=== PATIENT | male | born 1965 | race Caucasian/White ===

== ENCOUNTER 2018-06-27 01:17 | Emergency (ER) | payer BC ==
[2018-06-27] MEDS ORDERED: Morphine 4 MG/ML VIAL ONE ×3 (01:48→05:01)
[2018-06-27] MEDS ORDERED: Ondansetron HCl/PF 4 MG/2 ML Vial ONE (01:48)
[2018-06-27 01:53] LABS: #Eosinphils 0.2 thou/uL (0.0-0.7); #Monocytes 0.5 thou/uL (0.11-0.59); #Neutrophils 2.5 thou/uL (1.40-6.50); %Basophils 0.8 % (0.0-1.0); %Eosinophils 3.4 % (0.0-10.0); %Lymphocytes 38.6 % (21.0-51.0); %Monocytes 8.7 % (0.0-10.0); %Neutrophils 48.5 % (42.0-75.0); Hemoglobin 15.3 g/dL (14.0-18.0); Mean Corpuscular Hemoglobin 32.1 pg (27.0-31.0); Mean Corpuscular Volume 91.6 fL (78.0-98.0); Mean Platelet Volume 7.2 fL (7.4-10.4); Platelet Count 208 thou/uL (130-400); RBC Distribution Width 12.2 % (11.5-14.5); Red Blood Cell (RBC) Count 4.78 mill/uL (4.70-6.10); White Blood Cell (WBC) Count 5.2 thou/uL (4.8-10.8)
[2018-06-27 01:54] LABS: Bilirubin Negative (Negative); Blood, Urine Small (Negative); Clarity CLEAR (Clear); Glucose, Urine (Dipstick) Negative (Negative); Leukocyte Negative (Negative); Nitrite Negative (Negative); Protein, Urine (Dipstick) 30 mg/dL (Neg-Trace); Specific Gravity, Urine 1.015 (1.002-1.036); Urobilinogen 0.2 mg/dL (0.2-1.0); pH, Urine 5.5 (5.0-9.0)
[2018-06-27 01:56] LABS: Bacteria/HPF None Seen HPF (None Seen); Hyaline Casts/LPF 0-3 HYALINE CAST LPF (0-3 Hyaline); Pathc Cast-AUWi Flag 0.14 (0-2.49); Squamous Epithelial None Seen HPF (0-3); WBC/HPF 0-3 HPF (0-3)
[2018-06-27 02:13] LABS: ALT (SGPT) 50 U/L (8-55); AST (SGOT) 30 U/L (5-34); Albumin 4.5 g/dL (3.5-5.0); Alkaline Phosphatase 128 U/L (40-150); Anion Gap 15 mmol/L (10-20); BUN (Urea Nitrogen) 16 mg/dL (8.4-25.7); Bilirubin, Total 0.5 mg/dL (0.2-1.2); Calc. Creatinine Clearance 0 mL/min (70-130); Calcium 9.9 mg/dL (7.8-10.44); Carbon Dioxide 26 mmol/L (22-29); Chloride 102 mmol/L (98-107); Estimated GFR-MDRD 63; Globulin 3.4 g/dL (2.4-3.5); Glucose 131 mg/dL (70-105); Lipase 44 U/L (8-78); Potassium 4.3 mmol/L (3.5-5.1); Protein, Total 7.9 g/dL (6.0-8.3); Sodium 139 mmol/L (136-145)
[2018-06-27] MEDS ORDERED: Ketorolac Tromethamine 30 MG/ML VIAL ONE (05:42)
--- NOTE | 2018-06-27 08:37 | CT ---
PRELIMINARY REPORT/[facility]/EMERGENTY AFTER-HOURS PROCEDURE CT Abdomen and Pelvis With Intravenous Contrast EXAM DATE/TIME: 06/27/2018 3:38 AM CLINICAL HISTORY: 53 years old, male; Pain; Abdominal pain; Generalized; Patient HX: Llq pain radiates to l flank TECHNIQUE: Axial computed tomography images of the abdomen and pelvis with intravenous contrast. Coronal reformatted images were created and reviewed. COMPARISON: No relevant prior studies available. FINDINGS: Lower thorax: No acute findings. ABDOMEN: Liver: Hepatic steatosis. Gallbladder and bile ducts: Normal. No calcified stones. No ductal dilation. Pancreas: Normal. No ductal dilation. Spleen: Normal. No splenomegaly. Adrenals: Normal. No mass. Kidneys and ureters: 3 mm obstructing stone in the distal left ureter causing mild obstructive uropat hy. Stomach and bowel: Normal. No obstruction. No mucosal thickening. Appendix: Appendix not visualized. PELVIS: Bladder: Unremarkable as visualized. Reproductive: Prostatomegaly. ABDOMEN and PELVIS: Intraperitoneal space: Normal. No free air. No significant fluid collection. Bones/joints: No acute fracture. No dislocation. Soft tissues: Prior anterior abdominal wall hernia repair. Vasculature: Normal. No abdominal aortic aneurysm. Lymph nodes: Normal. No enlarged lymph nodes. IMPRESSION: 3 mm obstructing stone in the distal left ureter causing mild obstructive uropathy. Thank you for allowing us to participate in the care of your patient. Dictated and Authenticated by: Ramon Birmingham MD 06/27/2018 4:01 AM Central Time ([place] & [place]) FINAL REPORT ABDOMEN CT WITH CONTRAST PELVIC CT WITH CONTRAST: HISTORY: Left lower quadrant pain. Left flank pain. COMPARISON: 07/31/15. FINDINGS: This report is in agreement with the preliminary report by [facility]. There is left-sided obstructive urop athy secondary to a distal left ureteral calculus. Calculus measures approximately 3 mm. The overal l degree of obstructive uropathy is mild. POS: [facility]
[2018-06-27] MEDS ORDERED: Iopamidol 370 76% 50 ML VIAL FS ONE (13:52)
[2018-06-27] MEDS ORDERED: ISOVUE-370 76%-LOCM 1 ML ONE (13:52)
== END 2018-06-27 05:55 | disposition home or self-care (01) ==
LOC: ERS 01:17
DX: N20.1 Calculus of ureter (principal); E11.9 Type 2 diabetes mellitus without complications; K58.9 Irritable bowel syndrome, unspecified; F32.9 Major depressive disorder, single episode, unspecified; J45.909 Unspecified asthma, uncomplicated; Z79.899 Other long term (current) drug therapy; Z79.84 Long term (current) use of oral hypoglycemic drugs; Z79.891 Long term (current) use of opiate analgesic
CPT/HCPCS: 74177; 80053; 81003; 81015; 83690; 85025; 94760; 96374; 96375; 96376; J1885; J2270; J2405

== ENCOUNTER 2018-08-21 14:51 | Outpatient (CLI) | payer BC ==
--- NOTE | 2018-08-21 16:14 | RAD ---
PA AND LATERAL VIEWS CHEST: 08/21/18 HISTORY: Asthmatic bronchitis with acute exacerbation. FINDINGS: The heart size is borderline. The lungs are expanded without focal areas of consolidation, pneumothor aces, or pleural effusions. There are postop changes of metallic hardware in the lower cervical spine . IMPRESSION: No radiographic evidence of acute cardiopulmonary process. POS: [facility]
== END 2018-08-21 14:52 | disposition home or self-care (01) ==
LOC: BICRAD 14:51
PROVIDERS: ATTEND Family Medicine
DX: J45.901 Unspecified asthma with (acute) exacerbation (principal)
CPT/HCPCS: 71046

== ENCOUNTER 2019-04-18 07:35 | Outpatient (CLI) | payer BC ==
--- NOTE | 2019-04-18 09:21 | MRI ---
MRI CERVICAL SPINE WITHOUT CONTRAST: HISTORY: Cervical fusion. Cervical spinal stenosis. Headache. Arm pain and shoulder pain, involving the rig ht side. COMPARISON: None. CORRELATION: Cervical spine radiograph series from 04/16/2019. FINDINGS: Metallic susceptibility artifact secondary to cervical fusion changes at C5, C6, and C7. The visuali zed cervical vertebrae have appropriate signal intensity. Straightening of normal cervical lordosis may be due to position. No significant STIR hyperintensity to suggest vertebral body edema or ligame ntous injuries. The visualized brain parenchyma, cervicomedullary junction, cervical cord, and upper thoracic cord burgos ve normal size and signal intensity. C2-C3: No significant central canal stenosis. The foramina are patent. C3-C4: No significant central canal stenosis. Mild right foraminal narrowing due to uncovertebral h ypertrophy. Left neural foramen is patent. C4-C5: Broad-based disk osteophyte complex causes mass effect upon the ventral subarachnoid space. Mild deformity of the left hemicord without cord hyperintensity. Mild central canal stenosis. Mild right foraminal narrowing due to uncovertebral hypertrophy. Left foramen is patent. C5-C6: There is a central/left paracentral osteophyte ridge. Mild central canal stenosis. The fora felipe are patent. C6-C7: There is a central/left paracentral osteophyte protrusion. No significant mass effect upon t he cervical cord. Bilaterally, the foramina are patent. C7-T1: No significant central canal stenosis. The neural foramina are patent. IMPRESSION: 1. Cervical fusion changes, as described above. There are osteophytes at the C5-C6 and C6-C7 levels without significant central canal stenosis. 2. Mass effect upon the left hemicord secondary to a disk osteophyte complex at C4-C5. No cord sign al abnormality. 3. Varying degrees of neural foraminal stenosis, as detailed above. POS: [facility]
== END 2019-04-18 07:36 | disposition home or self-care (01) ==
LOC: TBSIIMAG 07:35
PROVIDERS: ATTEND Anesthesiology Pain Medicine
DX: M48.02 Spinal stenosis, cervical region (principal); M25.78 Osteophyte, vertebrae; Z98.1 Arthrodesis status
CPT/HCPCS: 72052; 72141

== ENCOUNTER 2019-04-21 12:44 | Emergency (ER) | payer BC ==
[2019-04-21 13:16] LABS: #Eosinphils 0.1 thou/uL (0.0-0.7); #Lymphocytes 1.5 thou/uL (1.20-3.40); #Neutrophils 6.7 thou/uL (1.40-6.50); %Basophils 0.4 % (0.0-1.0); %Eosinophils 0.8 % (0.0-10.0); %Lymphocytes 15.8 % (21.0-51.0); %Monocytes 10.3 % (0.0-10.0); %Neutrophils 72.7 % (42.0-75.0); Hemoglobin 14.3 g/dL (14.0-18.0); Mean Corpuscular HGB CONC 34.8 g/dL (32.0-36.0); Mean Corpuscular Hemoglobin 32.1 pg (27.0-31.0); Mean Corpuscular Volume 92.3 fL (78.0-98.0); Platelet Count 205 thou/uL (130-400); RBC Distribution Width 11.8 % (11.5-14.5); Red Blood Cell (RBC) Count 4.46 mill/uL (4.70-6.10); White Blood Cell (WBC) Count 9.2 thou/uL (4.8-10.8)
[2019-04-21] MEDS ORDERED: Lidocaine Viscous Sol 2% 15 ml UD Cup ONE (13:23)
[2019-04-21] MEDS ORDERED: Ketorolac Tromethamine 60 MG/2 ML VIAL ONE (13:38)
[2019-04-21] MEDS ORDERED: Lidocaine 2% Jelly 5 ML TUBE TOP SCH (13:45)
[2019-04-21 13:46] LABS: ALT (SGPT) 52 U/L (8-55); AST (SGOT) 20 U/L (5-34); Albumin 4.4 g/dL (3.5-5.0); Alkaline Phosphatase 91 U/L (40-150); Anion Gap 14 mmol/L (10-20); BUN (Urea Nitrogen) 15 mg/dL (8.4-25.7); Bilirubin, Total 0.8 mg/dL (0.2-1.2); Calc. Creatinine Clearance 0 mL/min (70-130); Calcium 9.7 mg/dL (7.8-10.44); Carbon Dioxide 26 mmol/L (22-29); Chloride 98 mmol/L (98-107); Estimated GFR-MDRD 60; Globulin 3.1 g/dL (2.4-3.5); Glucose 213 mg/dL (70-105); Potassium 4.1 mmol/L (3.5-5.1); Protein, Total 7.5 g/dL (6.0-8.3); Sodium 134 mmol/L (136-145)
[2019-04-21 14:46] LABS: Bilirubin Negative (Negative); Blood, Urine Trace (Negative); Clarity CLEAR (Clear); Glucose, Urine (Dipstick) >=1000 mg/dL (Negative); Leukocyte Negative (Negative); Nitrite Negative (Negative); Protein, Urine (Dipstick) 100 mg/dL (Neg-Trace); Urobilinogen 0.2 mg/dL (0.2-1.0)
[2019-04-21 14:48] LABS: Bacteria/HPF None Seen HPF (None Seen); Hyaline Casts/LPF 0-3 HYALINE CAST LPF (0-3 Hyaline); Squamous Epithelial None Seen HPF (0-3); WBC/HPF 0-3 HPF (0-3)
== END 2019-04-21 16:20 | disposition home or self-care (01) ==
LOC: ERS 12:44
DX: R33.9 Retention of urine, unspecified (principal); E11.9 Type 2 diabetes mellitus without complications; K58.9 Irritable bowel syndrome, unspecified; F32.9 Major depressive disorder, single episode, unspecified; Z79.891 Long term (current) use of opiate analgesic; Z79.899 Other long term (current) drug therapy
CPT/HCPCS: 36415; 80053; 81003; 81015; 85025; 87086; 96372; J1885

== ENCOUNTER 2019-09-17 09:07 | Day surgery (SDC) | payer BC ==
[2019-09-14 09:49] VITALS: BMI 49.4
[2019-09-17] MEDS ORDERED: PROPOFOL 200 MG/20 ML VIAL ONE (09:36)
[2019-09-17] MEDS ORDERED: Ondansetron HCl/PF 4 MG/2 ML Vial IVP PRN (10:16)
[2019-09-17] MEDS ORDERED: Promethazine HCl 25 MG/ML VIAL IM PRN (10:16)
[2019-09-17] MEDS ORDERED: Promethazine HCl 25 MG/ML VIAL SLOW IVP PRN (10:16)
--- NOTE | 2019-09-17 11:29 | OP ---
DATE OF PROCEDURE: 09/17/2019 PHYSICIAN INTENSIVIST SURGEON: None. PROCEDURES PERFORMED: Colonoscopy with biopsies and snare polypectomy. INDICATIONS: 1. Chronic diarrhea. 2. Rectal bleeding. 3. History of colon polyps. MEDICATIONS: See Anesthesia record. FINDINGS: After discussion of the risks, benefits, and alternatives of the procedure, informed consent was obtained and witnessed. Pre-endoscopic cardiopulmonary examination was satisfactory. Time-out was performed before sedation was achieved. Sedation was achieved with Anesthesia assistance in the endoscopy unit. Digital rectal exam was performed, which was unremarkable. A Pentax adult colonoscope was inserted into the anus and passed forward to the cecum in the usual fashion. The cecal base was identified by the appendiceal orifice as well as the ileocecal valve. The terminal ileum was intubated and the ileal mucosa appeared normal. The colonoscope was slowly withdrawn in a gradual and circumferential manner with careful examination of the entire colonic mucosa. The quality of the prep was good. The colonic mucosa appeared normal throughout. Random biopsies were obtained from the colonic mucosa in the right and left colon, to rule out microscopic colitis. There were two tiny sessile polyps in the descending colon and one tiny sessile polyp in the sigmoid colon, and all three of these were completely removed with cold snare and retrieved for pathology. Retroflexion in the rectum demonstrated small internal hemorrhoids. The colonoscope was completely withdrawn and the patient allowed to recover. The patient tolerated the procedure well. There were no immediate postprocedure complications. IMPRESSION: 1. Normal colonic mucosa throughout, with random colon biopsies obtained to rule out microscopic colitis. 2. Normal terminal ileum. 3. Three tiny polyps in the left colon, all completely removed with cold snare and retrieved for pathology. 4. Internal hemorrhoids. RECOMMENDATIONS: 1. Follow up pathology on the random colon biopsies and colon polyps. 2. Repeat colonoscopy for surveillance based on pathology results. 3. Follow up results of stool studies. 4. If stool studies and random colon biopsies are all unrevealing, we will plan to treat with a 2-week course of rifaximin. Job ID: [id number]
== END 2019-09-17 11:50 | disposition home or self-care (01) ==
LOC: SDC 09:07
PROVIDERS: ATTEND Internal Medicine
DX: K63.5 Polyp of colon (principal); K64.8 Other hemorrhoids; K58.0 Irritable bowel syndrome with diarrhea; E11.9 Type 2 diabetes mellitus without complications; G47.33 Obstructive sleep apnea (adult) (pediatric); N39.3 Stress incontinence (female) (male); E66.9 Obesity, unspecified; Z68.42 Body mass index [BMI] 45.0-49.9, adult; Z86.010 Personal history of colon polyps; Z80.0 Family history of malignant neoplasm of digestive organs; Z79.84 Long term (current) use of oral hypoglycemic drugs; Z79.899 Other long term (current) drug therapy; Z99.89 Dependence on other enabling machines and devices
CPT/HCPCS: 88305; J2704

== ENCOUNTER 2020-05-09 10:11 | Outpatient (CLI) | payer BC ==
[2020-05-09] MEDS ORDERED: Iopamidol-370 76% 500 ML 1 ML ONE (12:28)
--- NOTE | 2020-05-09 13:49 | CT ---
CT CHEST WITHOUT IV CONTRAST CTA CHEST WITH IV CONTRAST AND 3D POSTPROCESSIN05/09/20 HISTORY: Thoracic aortic ectasia. FINDINGS: The thoracic aortic measurements on the coronal oblique images are as follows: At aortic annulus: 2.5 cm Aortic sinus of Valsalva: 3.5 cm Sinotubular junction: 2.5 cm Mid ascending aorta: 3.7 cm High ascending aorta: 3.3 cm Descending thoracic aorta: 2.4 cm On the axial images, the ascending thoracic aorta measures 4 cm in AP dimension and descending thorac ic aorta measures 2.5 cm in AP dimension. No pleural or pericardial effusions are seen. No pneumothoraces, focal areas of consolidation, lung n odules or masses are identified. There are degenerative changes in the spine. Upper abdominal tomograms demonstrate fatty infiltration of the liver. IMPRESSION: Ectatic thoracic aorta without evidence of aneurysmal formation. Fatty liver. POS: [facility]
== END 2020-05-09 10:12 | disposition home or self-care (01) ==
LOC: BICCT 10:11
PROVIDERS: ATTEND Internal Medicine Cardiovascular Disease
DX: I77.810 Thoracic aortic ectasia (principal); K76.0 Fatty (change of) liver, not elsewhere classified
CPT/HCPCS: 71275; Q9967

== ENCOUNTER 2020-12-18 09:54 | Outpatient (CLI) | payer BC ==
[2020-12-18 18:46] LABS: Hemoglobin 16.2 g/dL (13.5-17.5); Mean Corpuscular HGB CONC 33.9 g/dL (32.0-36.0); Mean Corpuscular Volume 88.5 fl (81.2-95.1); Mean Platelet Volume 10.3 fl (7.4-10.4); Platelet Count 226 10x3/uL (150-450); White Blood Cell (WBC) Count 6.5 10x3/uL (3.5-10.5)
[2020-12-18 18:58] LABS: Anion Gap 17 mmol/L (10-20); BUN (Urea Nitrogen) 14 mg/dL (8.4-25.7); Calc. Creatinine Clearance 0 mL/min (70-130); Calcium 9.8 mg/dL (7.8-10.44); Carbon Dioxide 27 mmol/L (22-29); Chloride 101 mmol/L (98-107); Glucose 116 mg/dL (70-105); Potassium 3.9 mmol/L (3.5-5.1); Sodium 141 mmol/L (136-145)
[2020-12-18 19:00] LABS: PTT 29.5 sec (22.0-33.0); Prothrombin Time 10.8 sec (9.5-12.1)
[2020-12-19 01:58] LABS: SARS-CoV-2 PCR by NAA Not Detected (NotDetected)
--- NOTE | 2020-12-19 20:34 | EKG ---
Test Reason : Blood Pressure : / mmHG Vent. Rate : 086 BPM Atrial Rate : 086 BPM P-R Int : 184 ms QRS Dur : 108 ms QT Int : 364 ms P-R-T Axes : 042 -34 037 degrees QTc Int : 435 ms Normal sinus rhythm Left axis deviation Abnormal ECG No previous ECGs available Confirmed by Prachi HOLBROOK ([id number]) on 12/19/2020 8:34:41 PM Referred By: JOSE Confirmed By:Prachi HOLBROOK
== END 2020-12-18 09:55 | disposition home or self-care (01) ==
LOC: LABBT 09:54
PROVIDERS: ATTEND Urology
DX: Z01.818 Encounter for other preprocedural examination (principal); Z01.812 Encounter for preprocedural laboratory examination; R33.9 Retention of urine, unspecified; N32.81 Overactive bladder; N40.1 Benign prostatic hyperplasia with lower urinary tract symptoms; Z20.822 Contact with and (suspected) exposure to COVID-19; E11.9 Type 2 diabetes mellitus without complications; Z79.899 Other long term (current) drug therapy
CPT/HCPCS: 36415; 80053; 82043; 83036; 85025; 85610; 85730; 87635; 93005; 93010; U0003; U0005

== ENCOUNTER 2020-12-23 08:02 | Observation (INO) | payer BC ==
[2020-12-22 11:07] VITALS: BMI 45.2
[2020-12-23] MEDS ORDERED: Levofloxacin 500 mg/D5W 100 ml Premix Bag ONE (08:52)
[2020-12-23] MEDS ORDERED: Ondansetron PF 4 MG/2 ML Vial ONE (09:55)
[2020-12-23] MEDS ORDERED: Lidocaine 1% PF 5 ML VIAL ONE (09:55)
[2020-12-23] MEDS ORDERED: PROPOFOL 200 MG/20 ML VIAL ONE (09:55)
[2020-12-23] MEDS ORDERED: Dexamethasone 20 MG/5 ML VIAL ONE (09:55)
[2020-12-23] MEDS ORDERED: Fentanyl 100 MCG/2 ML VIAL ONE ×3 (11:26→15:04)
[2020-12-23] MEDS ORDERED: Promethazine HCl 25 MG/ML VIAL IM PRN (12:55)
[2020-12-23] MEDS ORDERED: Promethazine HCl 25 MG/ML VIAL SLOW IVP PRN (12:55)
[2020-12-23] MEDS ORDERED: Ondansetron HCl/PF 4 MG/2 ML Vial IVP PRN (12:55)
--- NOTE | 2020-12-23 13:56 | OP ---
DATE OF PROCEDURE: 12/23/2020 PREOPERATIVE DIAGNOSIS: Enlarged prostate with lower urinary tract symptoms. POSTOPERATIVE DIAGNOSIS: Enlarged prostate with lower urinary tract symptoms. PROCEDURES PERFORMED: Transurethral resection of prostate utilizing PlasmaButton. ANESTHESIA: General. COMPLICATIONS: None. ESTIMATED BLOOD LOSS: Minimal. SPECIMEN: None. DESCRIPTION OF PROCEDURE: After informed consent, the patient was taken to the operating room, transferred to the table under his own power. Anesthesia was established. A time-out was performed, showing the correct patient, site, and procedure. Preoperative antibiotics were administered. He was prepped and draped in the lithotomy position. I began by inserting the resectoscope through the urethra noting normal course and caliber of the urethra down to the prostate noting coapting lateral lobes and high bladder neck. None of the UroLift clips were visible. The bladder was systematically examined noting no mucosal abnormalities. Both ureters normal in appearance, effluxing clear urine. I began by using the PlasmaButton to take down the bladder neck and continued resection in the midline back to the verumontanum. The case was somewhat difficult due to the patient's abdominal girth causing pressure on the bladder, which would reduce flow with each breath. I then resected his left lobe from 1 o'clock down to midline from the bladder neck back to the verumontanum. I was able to remove the UroLift clips on this side, which were all irrigated from the bladder. I then repeated a similar process on the right side from 11 o'clock down to midline. Finally, anterior obstructing tissue was removed. By the end of the case, he had an excellent channel for the prostate. Hemostasis was achieved. The scope was then withdrawn after inspecting the bladder and noting no further clips and no injury to the ureters. A 22-[place] three-way catheter was placed with 30 mL instilled in the balloon. This was connected to bag drainage and CBI. He was then awoken from anesthesia, transferred back to his hospital bed, taken to PACU in stable condition, where he will be admitted overnight. Job ID: [id number]
[2020-12-23] MEDS ORDERED: Cyclobenzaprine 10 MG TAB PO PRN (15:22)
[2020-12-23] MEDS ORDERED: Oxybutynin 5 MG TAB ONE (15:32)
[2020-12-23] MEDS ORDERED: Zolpidem Tartrate 5 MG TAB PO PRN (17:59)
[2020-12-23] MEDS ORDERED: diphenhydrAMINE 50 MG/ML VIAL IVP PRN (17:59)
[2020-12-23] MEDS ORDERED: Ondansetron PF 4 MG/2 ML Vial IVP PRN (17:59)
[2020-12-23] MEDS ORDERED: hydrALAZINE 20 MG/ML VIAL SLOW IVP PRN (17:59)
[2020-12-23] MEDS ORDERED: HYDROcodone/Acetaminophen 5/325 mg Tablet PO PRN (17:59)
[2020-12-23] MEDS: Sodium Chloride 0.9% 1,000 ML IV SCH (20:33)
[2020-12-23] MEDS: Famotidine/PF 20 mg/2ml Vial SLOW IVP SCH (20:36)
[2020-12-23] MEDS ORDERED: Atorvastatin Calcium 10 MG TAB PO SCH (21:00)
[2020-12-23] MEDS ORDERED: Montelukast Sodium 10 mg Tablet PO SCH (21:00)
[2020-12-23] MEDS ORDERED: Prazosin HCl 1 MG CAP PO SCH (21:00)
[2020-12-23] MEDS ORDERED: risperiDONE 3 MG TAB PO SCH (21:00)
[2020-12-23] MEDS ORDERED: Docusate 100 MG CAP PO SCH (21:00)
[2020-12-23] MEDS ORDERED: PATIENT'S HOME MEDICATION PO SCH (21:00)
[2020-12-23] MEDS ORDERED: Venlafaxine HCl XR 150 MG CAP PO SCH (21:00)
[2020-12-23] MEDS: Hyoscyamine Sulfate SL 0.125 mg Tablet SL PRN (21:50)
[2020-12-24] MEDS: Sodium Chloride 0.9% 1,000 ML IV SCH (02:40)
[2020-12-24] MEDS: Hyoscyamine Sulfate SL 0.125 mg Tablet SL PRN (05:10)
[2020-12-24] MEDS ORDERED: metFORMIN XR 500 MG TAB PO SCH (08:00)
[2020-12-24] MEDS: Famotidine/PF 20 mg/2ml Vial SLOW IVP SCH (08:33)
[2020-12-24] MEDS ORDERED: Bupropion 150 MG XL TAB PO SCH (09:00)
[2020-12-24] MEDS ORDERED: Levothyroxine Sodium 125 MCG TAB PO SCH (09:00)
[2020-12-24] MEDS ORDERED: LIRAGLUTIDE 3 MG/0.5 ML SC SCH (09:00)
--- NOTE | 2020-12-24 10:06 | DIS ---
DATE OF ADMISSION: 12/23/2020 DATE OF DISCHARGE: 12/24/2020 DISCHARGE DIAGNOSES: Enlarged prostate with lower urinary tract symptoms, overactive bladder. PROCEDURE PERFORMED: Bipolar transurethral resection of prostate. HOSPITAL COURSE: The patient underwent an uncomplicated bipolar transurethral resection of prostate utilizing PlasmaButton. He was admitted overnight for CBI, which remained clear on slow drip. In the following morning, this was turned off with urine remaining clear. He was deemed stable for discharge home at that point. DISCHARGE MEDICATIONS: Resume home medication. Bactrim and oxybutynin have been sent to his pharmacy. He has a followup appointment next Tuesday for void trial. Job ID: [id number]
[2020-12-24 11:47] VITALS: BP 121/89; TEMP 98.1
== END 2020-12-24 12:21 | disposition home or self-care (01) ==
LOC: SDC 08:02 → T4-B 14:39
PROVIDERS: ADMIT Urology; ATTEND Urology
PROC: 0VT08ZZ Resection of Prostate, Via Natural or Artificial Opening Endoscopic (ICD-10-PCS; principal; 2020-12-23)
DX: N40.1 Benign prostatic hyperplasia with lower urinary tract symptoms (principal); R33.8 Other retention of urine; N32.81 Overactive bladder; E11.9 Type 2 diabetes mellitus without complications; G47.33 Obstructive sleep apnea (adult) (pediatric); F43.10 Post-traumatic stress disorder, unspecified; K58.9 Irritable bowel syndrome, unspecified; F34.1 Dysthymic disorder; F32.9 Major depressive disorder, single episode, unspecified; F41.9 Anxiety disorder, unspecified; J45.909 Unspecified asthma, uncomplicated; E78.00 Pure hypercholesterolemia, unspecified; E66.9 Obesity, unspecified; Z68.42 Body mass index [BMI] 45.0-49.9, adult; Z87.891 Personal history of nicotine dependence; Z79.811 Long term (current) use of aromatase inhibitors; Z79.84 Long term (current) use of oral hypoglycemic drugs; Z79.899 Other long term (current) drug therapy
CPT/HCPCS: 96374; 96376; G0378; J1100; J1956; J2405; J2704; J3010; S0028

== ENCOUNTER 2021-04-30 13:02 | Emergency (ER) | payer BC ==
[~2021-04-30 13:02] MED LIST: Iopamidol-370 76% 500 ML 1 ML ONE
[2021-04-30 13:30] LABS: #Eosinphils 0.1 thou/uL (0.0-0.7); #Lymphocytes 2.3 thou/uL (1.20-3.40); #Monocytes 0.2 thou/uL (0.11-0.59); #Neutrophils 2.7 thou/uL (1.40-6.50); %Basophils 0.2 % (0.0-1.0); %Eosinophils 2.5 % (0.0-10.0); %Lymphocytes 42.9 % (21.0-51.0); %Neutrophils 50.5 % (42.0-75.0); Mean Corpuscular HGB CONC 35.3 g/dL (32.0-36.0); Mean Corpuscular Hemoglobin 31.6 pg (27.0-31.0); Mean Corpuscular Volume 89.4 fL (78.0-98.0); Platelet Count 242 thou/uL (130-400); RBC Distribution Width 11.7 % (11.5-14.5); Red Blood Cell (RBC) Count 5.71 mill/uL (4.70-6.10); White Blood Cell (WBC) Count 5.3 thou/uL (4.8-10.8)
[2021-04-30 13:52] LABS: ALT (SGPT) 51 U/L (8-55); AST (SGOT) 27 U/L (5-34); Albumin 4.6 g/dL (3.5-5.0); Alkaline Phosphatase 106 U/L (40-110); Anion Gap 13 mmol/L (10-20); BUN (Urea Nitrogen) 13 mg/dL (8.4-25.7); Bilirubin, Total 0.7 mg/dL (0.2-1.2); Calc. Creatinine Clearance 0 mL/min (70-130); Calcium 9.8 mg/dL (7.8-10.44); Carbon Dioxide 24 mmol/L (22-29); Chloride 102 mmol/L (98-107); Globulin 3.4 g/dL (2.4-3.5); Glucose 197 mg/dL (70-105); Magnesium 1.8 mg/dL (1.6-2.6); Potassium 3.8 mmol/L (3.5-5.1); Sodium 135 mmol/L (136-145)
[2021-04-30] MEDS ORDERED: Ondansetron PF 4 MG/2 ML Vial ONE ×2 (14:10→14:12)
[2021-04-30] MEDS ORDERED: Morphine 4 MG/ML VIAL ONE (14:10)
[2021-04-30 14:37] LABS: Bacteria/HPF None Seen HPF (None Seen); Bilirubin Negative (Negative); Blood, Urine Negative (Negative); Clarity Clear (Clear); Glucose, Urine (Dipstick) 200 mg/dL (Negative); Ketone, Urine Trace mg/dL (Negative); Leukocyte Negative Leu/uL (Negative); Nitrite Negative (Negative); Protein, Urine (Dipstick) 100 mg/dL (Neg-Trace); RBC/HPF 0-3 HPF (0-3); Specific Gravity, Urine 1.028 (1.002-1.036); Squamous Epithelial None Seen HPF (0-3); Urobilinogen Normal mg/dL (Less than 2); WBC/HPF 0-3 HPF (0-3); pH, Urine 5.5 (5.0-9.0)
== END 2021-04-30 15:59 | disposition home or self-care (01) ==
LOC: ERS 13:02
DX: R10.9 Unspecified abdominal pain (principal); E11.9 Type 2 diabetes mellitus without complications; J45.909 Unspecified asthma, uncomplicated; Z87.891 Personal history of nicotine dependence; Z79.899 Other long term (current) drug therapy
CPT/HCPCS: 36415; 74177; 80053; 81003; 81015; 83735; 85025; 94760; 96374; 96375; J2270; J2405; Q9967

== ENCOUNTER 2021-09-29 07:34 | Outpatient (CLI) | payer BC | END 2021-09-29 07:35 | disposition home or self-care (01) | LOC: ULT 07:34 | PROVIDERS: ATTEND Family Medicine | DX: R10.31 Right lower quadrant pain (principal); K76.0 Fatty (change of) liver, not elsewhere classified | CPT/HCPCS: 76700 ==

== ENCOUNTER 2021-09-29 15:09 | Emergency (ER) | payer BC, MEDICARE ==
[2021-09-29] MEDS ORDERED: Ondansetron PF 4 MG/2 ML Vial ONE (15:28)
[2021-09-29] MEDS ORDERED: Ketorolac Tromethamine 30 MG/ML VIAL ONE (15:28)
[2021-09-29 15:37] LABS: #Eosinphils 0.1 thou/uL (0.0-0.7); #Lymphocytes 2.3 thou/uL (1.20-3.40); #Monocytes 0.5 thou/uL (0.11-0.59); #Neutrophils 2.8 thou/uL (1.40-6.50); %Basophils 0.6 % (0.0-1.0); %Eosinophils 2.3 % (0.0-10.0); %Lymphocytes 40.3 % (21.0-51.0); %Monocytes 8.5 % (0.0-10.0); %Neutrophils 48.4 % (42.0-75.0); Hemoglobin 18.3 g/dL (14.0-18.0); Mean Corpuscular HGB CONC 34.5 g/dL (32.0-36.0); Mean Corpuscular Hemoglobin 31.2 pg (27.0-31.0); Mean Corpuscular Volume 90.3 fL (78.0-98.0); Mean Platelet Volume 6.9 fL (7.4-10.4); Platelet Count 239 thou/uL (130-400); RBC Distribution Width 11.9 % (11.5-14.5); Red Blood Cell (RBC) Count 5.88 mill/uL (4.70-6.10); White Blood Cell (WBC) Count 5.7 thou/uL (4.8-10.8)
[2021-09-29 15:56] LABS: Anion Gap 13 mmol/L (10-20); BUN (Urea Nitrogen) 17 mg/dL (8.4-25.7); Calc. Creatinine Clearance 0 mL/min (70-130); Carbon Dioxide 29 mmol/L (22-29); Chloride 99 mmol/L (98-107); Potassium 4.2 mmol/L (3.5-5.1); Sodium 137 mmol/L (136-145)
[2021-09-29 15:57] LABS: ALT (SGPT) 40 U/L (8-55); AST (SGOT) 26 U/L (5-34); Albumin 4.9 g/dL (3.5-5.0); Alkaline Phosphatase 111 U/L (40-110); Bilirubin, Total 0.9 mg/dL (0.2-1.2); Calcium 10.1 mg/dL (7.8-10.44); Globulin 3.5 g/dL (2.4-3.5); Glucose 96 mg/dL (70-105); Lipase 35 U/L (8-78); Protein, Total 8.4 g/dL (6.0-8.3)
[2021-09-29 16:15] LABS: Bilirubin Negative (Negative); Blood, Urine Negative (Negative); Clarity Clear (Clear); Glucose, Urine (Dipstick) >=1000 mg/dL (Negative); Ketone, Urine Trace mg/dL (Negative); Leukocyte Negative Leu/uL (Negative); Nitrite Negative (Negative); Protein, Urine (Dipstick) 20 mg/dL (Neg-Trace); Specific Gravity, Urine 1.007 (1.002-1.036); Urobilinogen Normal mg/dL (Less than 2)
[2021-09-29] MEDS ORDERED: Morphine 4 MG/ML VIAL ONE (17:05)
== END 2021-09-29 17:55 | disposition home or self-care (01) ==
LOC: ERS 15:09
DX: K76.0 Fatty (change of) liver, not elsewhere classified (principal); Z87.891 Personal history of nicotine dependence; J45.909 Unspecified asthma, uncomplicated; Z79.899 Other long term (current) drug therapy; R10.31 Right lower quadrant pain
CPT/HCPCS: 36415; 74177; 76700; 80053; 81003; 83605; 83690; 85025; 96361; 96374; 96375; J1885; J2270; J2405; Q9967

== ENCOUNTER 2021-10-21 08:54 | Outpatient (CLI) | payer BC, MEDICARE ==
[2021-10-21 10:26] LABS: #Eosinphils 0.2 10x3/uL (0.0-0.5); #Monocytes 0.4 10x3/uL (0.0-1.1); #Neutrophils 1.7 10x3/uL (1.5-8.4); %Basophils 0.8 % (0.0-2.0); %Eosinophils 4.2 % (0.0-6.0); %Lymphocytes 40.9 % (18.0-47.0); %Monocytes 9.2 % (0.0-10.0); %Neutrophils 44.6 % (40.0-75.0); Hemoglobin 15.1 g/dL (13.5-17.5); Mean Corpuscular HGB CONC 34.6 g/dL (32.0-36.0); Mean Corpuscular Hemoglobin 29.9 pg (27.0-33.0); Mean Corpuscular Volume 86.3 fl (81.2-95.1); Mean Platelet Volume 9.6 fl (7.4-10.4); Platelet Count 202 10x3/uL (150-450); RBC Distribution Width 12.6 % (11.5-14.5); Red Blood Cell (RBC) Count 5.05 10x6/uL (4.32-5.72); White Blood Cell (WBC) Count 3.8 10x3/uL (3.5-10.5)
[2021-10-21 11:02] LABS: ALT (SGPT) 43 U/L (8-55); AST (SGOT) 29 U/L (5-34); Albumin 4.5 g/dL (3.5-5.0); Alkaline Phosphatase 123 U/L (40-110); Anion Gap 13 mmol/L (10-20); BUN (Urea Nitrogen) 12 mg/dL (8.4-25.7); Bilirubin, Total 0.4 mg/dL (0.2-1.2); Calc. Creatinine Clearance 0 mL/min (70-130); Calcium 9.1 mg/dL (7.8-10.44); Carbon Dioxide 25 mmol/L (22-29); Chloride 105 mmol/L (98-107); Globulin 2.7 g/dL (2.4-3.5); Glucose 155 mg/dL (70-105); Potassium 4.1 mmol/L (3.5-5.1); Protein, Total 7.2 g/dL (6.0-8.3); Sodium 139 mmol/L (136-145)
[2021-10-21 21:05] LABS: SARS-CoV-2 PCR by NAA Not Detected (NotDetected)
== END 2021-10-21 08:55 | disposition home or self-care (01) ==
LOC: LABBT 08:54
PROVIDERS: ATTEND Surgery
DX: Z01.818 Encounter for other preprocedural examination (principal); R19.03 Right lower quadrant abdominal swelling, mass and lump
CPT/HCPCS: 80053; 85025; 93005; 93010; U0003; U0005

== ENCOUNTER 2021-10-26 05:36 | Inpatient (IN) | payer BC, MEDICARE ==
[2021-10-26] MEDS ORDERED: ceFAZolin 2 GM/DEX 5% 100 ML BAG ONE (06:08)
[2021-10-26] MEDS ORDERED: Promethazine HCl 25 MG/ML VIAL ONE (06:23)
[2021-10-26] MEDS ORDERED: SUGAMMADEX SODIUM 200 MG/2 ML VIAL ONE (06:23)
[2021-10-26] MEDS ORDERED: Bupivacaine PF 0.5% 30 ML VIAL ONE (06:39)
[2021-10-26] MEDS ORDERED: Xylocaine 1% w/ Epi 1:100K 10 ML VIAL ONE (06:39)
[2021-10-26] MEDS ORDERED: Fentanyl 250 MCG/5 ML VIAL ONE (06:44)
[2021-10-26] MEDS ORDERED: Fentanyl 100 MCG/2 ML VIAL ONE (07:16)
[2021-10-26] MEDS ORDERED: Labetalol HCl 100 MG/20 ML VIAL ONE (07:30)
[2021-10-26] MEDS ORDERED: Ketorolac Tromethamine 30 MG/ML VIAL ONE (07:30)
[2021-10-26] MEDS ORDERED: Ondansetron PF 4 MG/2 ML Vial ONE (07:30)
[2021-10-26] MEDS ORDERED: diphenhydrAMINE 50 MG/ML VIAL ONE (07:30)
[2021-10-26] MEDS ORDERED: Lidocaine 1% PF 5 ML VIAL ONE (07:30)
[2021-10-26] MEDS ORDERED: Rocuronium Bromide 10 MG/ML (10ML VIAL) ONE (07:30)
[2021-10-26] MEDS ORDERED: Dexamethasone 20 MG/5 ML VIAL ONE (07:30)
[2021-10-26] MEDS ORDERED: PROPOFOL 200 MG/20 ML VIAL ONE (07:30)
[2021-10-26] MEDS ORDERED: hydrALAZINE 20 MG/ML VIAL SLOW IVP PRN (08:47)
[2021-10-26] MEDS ORDERED: Morphine 4 MG/ML VIAL SLOW IVP PRN (08:47)
[2021-10-26] MEDS ORDERED: Ondansetron PF 4 MG/2 ML Vial IVP PRN ×2 (08:47→19:43)
[2021-10-26] MEDS ORDERED: Promethazine HCl 25 MG/ML VIAL IM PRN ×2 (08:47→19:43)
[2021-10-26] MEDS ORDERED: HYDROcodone/Acetaminophen 10/325 mg Tablet PO PRN ×2 (08:47)
[2021-10-26] MEDS ORDERED: Dextrose 5% in Water 1,000 ML IV PRN (08:47)
[2021-10-26] MEDS ORDERED: Dextrose 50% Abboject 50 ML SYRINGE SLOW IVP PRN (08:47)
[2021-10-26] MEDS ORDERED: HYDROmorphone 0.5 MG/0.5 ML SYRINGE ONE ×3 (09:19→09:46)
[2021-10-26] MEDS ORDERED: Heparin 1,000 UNITS/ML VIAL ONE (09:38)
[2021-10-26] MEDS: Sodium Chloride 0.9% 1,000 ML IV SCH ×2 (10:51→19:14)
[2021-10-26] MEDS: Morphine 4 MG/ML VIAL SLOW IVP PRN ×5 (10:52→19:12)
[2021-10-26] MEDS: Famotidine 20 MG TAB PO SCH ×2 (10:56→21:08)
[2021-10-26] MEDS: Famotidine/PF 20 mg/2ml Vial SLOW IVP SCH ×2 (10:56→21:08)
[2021-10-26] MEDS ORDERED: Ketorolac Tromethamine 30 MG/ML VIAL IVP SCH (12:00)
[2021-10-26] MEDS: Ketorolac Tromethamine 30 MG/ML VIAL IVP SCH ×2 (15:00→21:08)
[2021-10-26] MEDS ORDERED: Sodium Chloride 0.9% 500 ML IV SCH (15:45)
[2021-10-26 15:47] LABS: #Lymphocytes 0.9 thou/uL (1.20-3.40); #Monocytes 0.8 thou/uL (0.11-0.59); #Neutrophils 9.6 thou/uL (1.40-6.50); %Eosinophils 0.2 % (0.0-10.0); %Lymphocytes 8.2 % (21.0-51.0); %Monocytes 6.8 % (0.0-10.0); %Neutrophils 84.7 % (42.0-75.0); Hemoglobin 17.1 g/dL (14.0-18.0); Mean Corpuscular HGB CONC 34.4 g/dL (32.0-36.0); Mean Corpuscular Hemoglobin 31.3 pg (27.0-31.0); Mean Corpuscular Volume 90.9 fL (78.0-98.0); Platelet Count 238 thou/uL (130-400); RBC Distribution Width 12.1 % (11.5-14.5); Red Blood Cell (RBC) Count 5.46 mill/uL (4.70-6.10); White Blood Cell (WBC) Count 11.4 thou/uL (4.8-10.8)
[2021-10-26] MEDS: cefOXitin 2 GM in Sodium Chloride 0.9% 100 ML IVPB SCH (16:09)
[2021-10-26] MEDS ORDERED: diphenhydrAMINE 50 MG/ML VIAL IM PRN (19:43)
[2021-10-26] MEDS ORDERED: HYDROmorphone 10 mg/100 ml CADD IVPB PRN (19:43)
[2021-10-26] MEDS ORDERED: Zolpidem Tartrate 5 MG TAB PO PRN (19:43)
[2021-10-26] MEDS ORDERED: Naloxone HCl 0.4 mg/ml Vial IV PRN (19:43)
[2021-10-26] MEDS ORDERED: diphenhydrAMINE 50 MG/ML VIAL IVP PRN (19:43)
[2021-10-26] MEDS ORDERED: diphenhydrAMINE 25 MG CAP PO PRN (19:43)
[2021-10-26] MEDS ORDERED: Communication Order-Pharmacy FS SCH (19:45)
[2021-10-26] MEDS ORDERED: Morphine 4 MG/ML VIAL SLOW IVP SCH (21:30)
[2021-10-26] MEDS ORDERED: Fleet Enema 133 ML BOT FS SCH (21:45)
[2021-10-27] MEDS ORDERED: Calcium Carbonate 500 MG ChewTAB PO PRN (00:55)
[2021-10-27] MEDS: cefOXitin 2 GM in Sodium Chloride 0.9% 100 ML IVPB SCH ×3 (01:53→18:39)
[2021-10-27] MEDS ORDERED: cefOXitin Sodium/Dextrose,Iso 2 GM in Premix Bag 1 BAG IVPB SCH (02:00)
[2021-10-27] MEDS: Ketorolac Tromethamine 30 MG/ML VIAL IVP SCH ×4 (02:04→20:57)
[2021-10-27] MEDS: Sodium Chloride 0.9% 1,000 ML IV SCH ×3 (02:10→18:40)
[2021-10-27] MEDS ORDERED: Enoxaparin Sodium 40 MG/0.4 ML SYRINGE SC SCH (06:00)
[2021-10-27 06:21] LABS: #Lymphocytes 0.6 thou/uL (1.20-3.40); #Monocytes 0.3 thou/uL (0.11-0.59); #Neutrophils 2.1 thou/uL (1.40-6.50); %Basophils 0.1 % (0.0-1.0); %Eosinophils 0.1 % (0.0-10.0); %Lymphocytes 20.9 % (21.0-51.0); %Monocytes 9.9 % (0.0-10.0); %Neutrophils 69.1 % (42.0-75.0); Hemoglobin 17.5 g/dL (14.0-18.0); Mean Corpuscular Hemoglobin 31.1 pg (27.0-31.0); Mean Corpuscular Volume 91.5 fL (78.0-98.0); Mean Platelet Volume 6.8 fL (7.4-10.4); Platelet Count 226 thou/uL (130-400); RBC Distribution Width 12.4 % (11.5-14.5); Red Blood Cell (RBC) Count 5.63 mill/uL (4.70-6.10); White Blood Cell (WBC) Count 3.1 thou/uL (4.8-10.8)
[2021-10-27 06:47] LABS: Anion Gap 12 mmol/L (10-20); BUN (Urea Nitrogen) 16 mg/dL (8.4-25.7); Calc. Creatinine Clearance 120 mL/min (70-130); Calcium 9.5 mg/dL (7.8-10.44); Carbon Dioxide 27 mmol/L (22-29); Chloride 105 mmol/L (98-107); Glucose 135 mg/dL (70-105); Potassium 3.9 mmol/L (3.5-5.1); Sodium 140 mmol/L (136-145)
[2021-10-27] MEDS ORDERED: Sodium Chloride 0.9% 500 ML IV SCH (08:00)
[2021-10-27] MEDS ORDERED: Mineral Oil PER 1 ML PO SCH (08:00)
[2021-10-27] MEDS: Famotidine/PF 20 mg/2ml Vial SLOW IVP SCH ×2 (08:08→20:57)
[2021-10-27] MEDS: Famotidine 20 MG TAB PO SCH ×2 (08:11→20:58)
[2021-10-28] MEDS: cefOXitin 2 GM in Sodium Chloride 0.9% 100 ML IVPB SCH ×2 (02:59→11:16)
[2021-10-28] MEDS: Ketorolac Tromethamine 30 MG/ML VIAL IVP SCH ×5 (02:59→23:15)
[2021-10-28] MEDS: Sodium Chloride 0.9% 1,000 ML IV SCH ×3 (05:56→23:18)
[2021-10-28] MEDS: HumaLOG 300 UNITS/3 ML VIAL SC PRN (06:24)
[2021-10-28] MEDS ORDERED: Sodium Chloride 0.9% 1,000 ML IV SCH ×2 (07:45→23:00)
[2021-10-28] MEDS ORDERED: Piperacillin/Tazobactam 3.375 GM in Sodium Chloride 0.9% 100 ML IVPB SCH ×3 (09:00→18:00)
[2021-10-28] MEDS: Famotidine 20 MG TAB PO SCH ×2 (09:49→20:58)
[2021-10-28] MEDS: Famotidine/PF 20 mg/2ml Vial SLOW IVP SCH ×2 (09:49→20:58)
[2021-10-28] MEDS: Enoxaparin Sodium 40 MG/0.4 ML SYRINGE SC SCH (09:49)
[2021-10-28] MEDS ORDERED: Fentanyl 100 MCG/2 ML VIAL ONE (09:56)
[2021-10-28] MEDS ORDERED: Bupivacaine PF 0.5% 30 ML VIAL ONE (09:58)
[2021-10-28] MEDS ORDERED: Xylocaine 1% w/ Epi 1:100K 10 ML VIAL ONE (10:01)
[2021-10-28] MEDS ORDERED: HYDROmorphone 0.5 MG/0.5 ML SYRINGE ONE (10:14)
[2021-10-28 10:23] LABS: Band 49 % (5-11); Hemoglobin 17.8 g/dL (14.0-18.0); Lymphocytes 25 % (21-51); MDiff Complete? YES; Mean Corpuscular HGB CONC 34.6 g/dL (32.0-36.0); Mean Corpuscular Hemoglobin 31.8 pg (27.0-31.0); Mean Corpuscular Volume 91.9 fL (78.0-98.0); Metamyelocyte 5 % (0-0); Monocytes 8 % (0-10); Neutrophil 9 % (42-75); Platelet Count 237 thou/uL (130-400); Platelet Morphology Comment Appears Adequate; Polychromasia SLIGHT = 2-3 cells (100X) (0-2/hpf); RBC Distribution Width 12.6 % (11.5-14.5); Reactive Lymphocytes 4 % (0-10); Red Blood Cell (RBC) Count 5.59 mill/uL (4.70-6.10); Reflex for Review?? YES; White Blood Cell (WBC) Count 3.8 thou/uL (4.8-10.8)
[2021-10-28] MEDS ORDERED: PROPOFOL 200 MG/20 ML VIAL ONE (10:33)
[2021-10-28] MEDS ORDERED: Rocuronium Bromide 10 MG/ML (10ML VIAL) ONE (10:33)
[2021-10-28] MEDS ORDERED: Lidocaine 1% PF 5 ML VIAL ONE (10:33)
[2021-10-28] MEDS ORDERED: Dexamethasone 20 MG/5 ML VIAL ONE (10:33)
[2021-10-28] MEDS ORDERED: Succinylcholine 200 MG/10 ml SYRINGE FS ONE (10:33)
[2021-10-28] MEDS ORDERED: Albumin 5% 500 ML ONE (11:27)
[2021-10-28] MEDS ORDERED: Piperacillin/Tazobactam 3.375 GM VIAL ONE ×2 (12:23→19:10)
[2021-10-28] MEDS ORDERED: Sodium Chloride 0.9% 10 ML ONE (12:49)
[2021-10-28] MEDS ORDERED: Morphine 4 MG/ML VIAL SLOW IVP PRN ×5 (14:08→17:45)
[2021-10-28] MEDS ORDERED: hydrALAZINE 20 MG/ML VIAL SLOW IVP PRN (14:08)
[2021-10-28] MEDS ORDERED: Propofol 1,000 MG/100 ML VIAL IV ONE (14:11)
[2021-10-28] MEDS ORDERED: Ventilator Sedation Protocol 1 EACH FS ONE (14:15)
[2021-10-28 14:49] LABS: Actual Bicarbonate (HCO3a) 22.9 mEq/L (22-28); Base Excess (BEa) -5.4 mEq/L (-2.0 to +3.0); CO2 Tension 54.4 mmHg (35.0-45.0); Calcium, Ionized (arterial) 1.16 mmol/L (1.12-1.30); Carboxyhemoglobin (COHb) 1.1 gm% (0.0-3.0); O2 Tension (PaO2), arterial 86.6 mmHg (80.0-100.0); Potassium - ABG Lab 3.89 mmol/L (3.70-5.30)
[2021-10-28] MEDS ORDERED: HYDROmorphone 2 MG/ML VIAL ONE (14:53)
[2021-10-28 15:09] LABS: pH, Arterial 7.24 (7.35-7.45)
[2021-10-28 15:11] LABS: Puncture Site LRA
[2021-10-28] MEDS ORDERED: Fentanyl BOLUS 250 ML IVPB PRN (15:15)
[2021-10-28] MEDS ORDERED: Propofol BOLUS 1,000 MG/100 ML VIAL IV PRN (15:15)
[2021-10-28] MEDS ORDERED: Lorazepam 2 MG/ML VIAL SLOW IVP PRN (15:15)
[2021-10-28] MEDS ORDERED: DISCONTINUE PREVIOUS NARCOTIC PAIN MEDICATIONS AND BENZODIAZEPINES FS SCH (15:15)
[2021-10-28] MEDS ORDERED: Non-Formulary Medication 1 EACH PO PRN (15:25)
[2021-10-28] MEDS ORDERED: Promethazine HCl 25 MG/ML VIAL IM/IV PRN (15:30)
[2021-10-28] MEDS ORDERED: Ondansetron HCl/PF 4 MG/2 ML Vial IVP PRN (15:30)
[2021-10-28] MEDS ORDERED: HYDROmorphone 2 MG/ML VIAL SLOW IVP PRN (15:30)
[2021-10-28] MEDS ORDERED: Morphine 4 MG/ML VIAL ONE ×2 (17:04→17:05)
[2021-10-28] MEDS ORDERED: Morphine 2 MG/ML VIAL SLOW IVP PRN (17:30)
[2021-10-28] MEDS ORDERED: Ketorolac Tromethamine 30 MG/ML VIAL ONE (18:00)
[2021-10-28] MEDS ORDERED: Sodium Chloride 0.9% 100 ML ONE (19:10)
[2021-10-28] MEDS: Piperacillin/Tazobactam 3.375 GM in Sodium Chloride 0.9% 100 ML IVPB SCH (20:56)
[2021-10-28] MEDS: Fentanyl CADD 100 ML IV SCH (20:58)
[2021-10-29] MEDS: Propofol 1,000 MG/100 ML VIAL IV PRN ×2 (00:16→12:59)
[2021-10-29] MEDS: HumaLOG 300 UNITS/3 ML VIAL SC PRN (00:53)
[2021-10-29 04:20] LABS: Anion Gap 11 mmol/L (10-20); BUN (Urea Nitrogen) 30 mg/dL (8.4-25.7); Calc. Creatinine Clearance 119 mL/min (70-130); Calcium 8.6 mg/dL (7.8-10.44); Carbon Dioxide 25 mmol/L (22-29); Chloride 109 mmol/L (98-107); Glucose 150 mg/dL (70-105); Potassium 3.8 mmol/L (3.5-5.1); Sodium 141 mmol/L (136-145)
[2021-10-29 04:25] LABS: Band 35 % (5-11); Hemoglobin 13.7 g/dL (14.0-18.0); Lymphocytes 5 % (21-51); MDiff Complete? YES; Mean Corpuscular HGB CONC 35.3 g/dL (32.0-36.0); Mean Corpuscular Hemoglobin 32.5 pg (27.0-31.0); Mean Corpuscular Volume 92.1 fL (78.0-98.0); Mean Platelet Volume 7.4 fL (7.4-10.4); Monocytes 7 % (0-10); Neutrophil 53 % (42-75); Platelet Count 175 thou/uL (130-400); Platelet Morphology Comment Appears Adequate; RBC Distribution Width 12.3 % (11.5-14.5); Red Blood Cell (RBC) Count 4.21 mill/uL (4.70-6.10); White Blood Cell (WBC) Count 4.2 thou/uL (4.8-10.8)
[2021-10-29] MEDS: Piperacillin/Tazobactam 3.375 GM in Sodium Chloride 0.9% 100 ML IVPB SCH ×3 (05:46→20:47)
[2021-10-29] MEDS: Ketorolac Tromethamine 30 MG/ML VIAL IVP SCH ×3 (05:57→18:35)
[2021-10-29] MEDS: Sodium Chloride 0.9% 1,000 ML IV SCH ×3 (08:26→21:46)
[2021-10-29] MEDS ORDERED: Sodium Chloride 0.9% 1,000 ML IV SCH (08:30)
[2021-10-29] MEDS: Famotidine/PF 20 mg/2ml Vial SLOW IVP SCH ×2 (09:49→20:48)
[2021-10-29] MEDS: Enoxaparin Sodium 40 MG/0.4 ML SYRINGE SC SCH (09:49)
[2021-10-29] MEDS: Famotidine 20 MG TAB PO SCH ×2 (09:50→20:48)
[2021-10-29] MEDS: Fentanyl CADD 100 ML IV SCH (15:17)
[2021-10-29] MEDS ORDERED: Piperacillin/Tazobactam 3.375 GM in Sodium Chloride 0.9% 100 ML IVPB SCH (18:00)
[2021-10-30] MEDS: Propofol 1,000 MG/100 ML VIAL IV PRN ×2 (00:22→09:23)
[2021-10-30] MEDS: Piperacillin/Tazobactam 3.375 GM in Sodium Chloride 0.9% 100 ML IVPB SCH ×3 (04:16→19:42)
[2021-10-30] MEDS: Sodium Chloride 0.9% 1,000 ML IV SCH ×3 (05:59→16:43)
[2021-10-30] MEDS: Fentanyl CADD 100 ML IV SCH (07:09)
[2021-10-30] MEDS: Famotidine 20 MG TAB PO SCH ×2 (09:19→19:43)
[2021-10-30] MEDS: Enoxaparin Sodium 40 MG/0.4 ML SYRINGE SC SCH (09:21)
[2021-10-30] MEDS: Famotidine/PF 20 mg/2ml Vial SLOW IVP SCH ×2 (09:23→19:44)
[2021-10-30] MEDS ORDERED: Norepinephrine 8 MG/0.9% NS 250 ML ONE (11:09)
[2021-10-30] MEDS ORDERED: Fentanyl 100 MCG/2 ML VIAL ONE (12:04)
[2021-10-30] MEDS ORDERED: Ondansetron PF 4 MG/2 ML Vial ONE (12:15)
[2021-10-30] MEDS ORDERED: PROPOFOL 200 MG/20 ML VIAL ONE (12:15)
[2021-10-30] MEDS ORDERED: Metoclopramide HCl 10 MG/2 ML VIAL ONE (12:15)
[2021-10-30] MEDS ORDERED: Morphine 4 MG/ML VIAL SLOW IVP PRN (16:27)
[2021-10-30] MEDS: Morphine 4 MG/ML VIAL SLOW IVP PRN ×2 (19:40→23:20)
[2021-10-31] MEDS: Promethazine HCl 25 MG/ML VIAL IM PRN (00:24)
[2021-10-31] MEDS: Sodium Chloride 0.9% 1,000 ML IV SCH ×3 (00:27→16:30)
[2021-10-31] MEDS: Morphine 4 MG/ML VIAL SLOW IVP PRN ×5 (03:55→19:44)
[2021-10-31] MEDS: Piperacillin/Tazobactam 3.375 GM in Sodium Chloride 0.9% 100 ML IVPB SCH ×3 (03:56→20:19)
[2021-10-31 04:56] LABS: Band 1 % (5-11); Hemoglobin 11.8 g/dL (14.0-18.0); Hypochromia SLIGHT = 6-15 cells (100X) (0-5/hpf); Lymphocytes 13 % (21-51); MDiff Complete? YES; Mean Corpuscular HGB CONC 34.6 g/dL (32.0-36.0); Mean Corpuscular Hemoglobin 31.8 pg (27.0-31.0); Mean Corpuscular Volume 91.9 fL (78.0-98.0); Mean Platelet Volume 6.7 fL (7.4-10.4); Monocytes 12 % (0-10); Neutrophil 74 % (42-75); Platelet Count 199 thou/uL (130-400); Platelet Morphology Comment Appears Adequate; RBC Distribution Width 12.6 % (11.5-14.5); White Blood Cell (WBC) Count 6.6 thou/uL (4.8-10.8)
[2021-10-31 05:02] LABS: Anion Gap 11 mmol/L (10-20); BUN (Urea Nitrogen) 19 mg/dL (8.4-25.7); Calc. Creatinine Clearance 199 mL/min (70-130); Calcium 8.3 mg/dL (7.8-10.44); Carbon Dioxide 25 mmol/L (22-29); Chloride 112 mmol/L (98-107); Glucose 116 mg/dL (70-105); Potassium 3.4 mmol/L (3.5-5.1); Sodium 145 mmol/L (136-145)
[2021-10-31] MEDS: Famotidine/PF 20 mg/2ml Vial SLOW IVP SCH (08:22)
[2021-10-31] MEDS: Enoxaparin Sodium 40 MG/0.4 ML SYRINGE SC SCH (08:22)
[2021-10-31] MEDS: Multivitamins, Adult 10 ML, TRACE ELEMENT CONCENTRATE 1 ML in D15W-AA 5% with Lytes 2,0... IV SCH (09:19)
[2021-10-31] MEDS: Famotidine 20 MG TAB PO SCH (09:29)
[2021-10-31] MEDS ORDERED: Pantoprazole 40 MG VIAL IVP SCH (11:30)
[2021-10-31] MEDS ORDERED: Multivitamins, Adult 10 ML, TRACE ELEMENT CONCENTRATE 1 ML in D15W-AA 5% with Lytes 2,0... IV SCH (14:00)
[2021-10-31] MEDS: Pantoprazole 40 MG VIAL IVP SCH (20:18)
[2021-11-01] MEDS: Sodium Chloride 0.9% 1,000 ML IV SCH ×4 (04:34→20:33)
[2021-11-01] MEDS: Piperacillin/Tazobactam 3.375 GM in Sodium Chloride 0.9% 100 ML IVPB SCH ×3 (04:55→20:33)
[2021-11-01] MEDS: Multivitamins, Adult 10 ML, TRACE ELEMENT CONCENTRATE 1 ML in D15W-AA 5% with Lytes 2,0... IV SCH ×2 (07:39→14:49)
[2021-11-01] MEDS: Enoxaparin Sodium 40 MG/0.4 ML SYRINGE SC SCH (09:09)
[2021-11-01] MEDS: Pantoprazole 40 MG VIAL IVP SCH ×2 (09:09→20:32)
[2021-11-01] MEDS: Morphine 4 MG/ML VIAL SLOW IVP PRN ×4 (10:31→23:25)
[2021-11-01] MEDS: HumaLOG 300 UNITS/3 ML VIAL SC PRN (11:52)
[2021-11-01] MEDS: Promethazine HCl 25 MG/ML VIAL IM PRN (23:27)
[2021-11-02] MEDS ORDERED: Simethicone Chewable 80 MG TAB PO SCH (00:45)
[2021-11-02] MEDS: Piperacillin/Tazobactam 3.375 GM in Sodium Chloride 0.9% 100 ML IVPB SCH ×3 (03:26→21:26)
[2021-11-02] MEDS: Sodium Chloride 0.9% 1,000 ML IV SCH ×2 (05:34→15:02)
[2021-11-02] MEDS: HumaLOG 300 UNITS/3 ML VIAL SC PRN ×2 (05:38→18:51)
[2021-11-02] MEDS: Morphine 4 MG/ML VIAL SLOW IVP PRN ×3 (06:27→15:46)
[2021-11-02] MEDS: Enoxaparin Sodium 40 MG/0.4 ML SYRINGE SC SCH (08:06)
[2021-11-02] MEDS: Pantoprazole 40 MG VIAL IVP SCH ×2 (08:07→21:26)
[2021-11-02] MEDS ORDERED: Multivitamins, Adult 10 ML, TRACE ELEMENT CONCENTRATE 1 ML in CLINIMIX E 5/20 2,000 ML IV SCH (14:00)
[2021-11-02] MEDS ORDERED: Fat Emulsion 250 ML IVPB SCH (14:00)
[2021-11-02] MEDS: Multivitamins, Adult 10 ML, TRACE ELEMENT CONCENTRATE 1 ML in D15W-AA 5% with Lytes 2,0... IV SCH (15:02)
[2021-11-02] MEDS: Zolpidem Tartrate 5 MG TAB PO PRN (21:26)
[2021-11-03] MEDS: Sodium Chloride 0.9% 1,000 ML IV SCH ×3 (03:30→17:28)
[2021-11-03] MEDS: Piperacillin/Tazobactam 3.375 GM in Sodium Chloride 0.9% 100 ML IVPB SCH ×3 (03:30→20:31)
[2021-11-03] MEDS: HumaLOG 300 UNITS/3 ML VIAL SC PRN (05:44)
[2021-11-03] MEDS: Morphine 4 MG/ML VIAL SLOW IVP PRN ×5 (08:55→22:59)
[2021-11-03] MEDS: Enoxaparin Sodium 40 MG/0.4 ML SYRINGE SC SCH (08:59)
[2021-11-03] MEDS: Venlafaxine HCl XR 75 MG CAP PO SCH ×2 (08:59→09:07)
[2021-11-03] MEDS: Pantoprazole 40 MG VIAL IVP SCH ×2 (09:00→20:31)
[2021-11-03] MEDS ORDERED: Furosemide 20 MG/2 ML VIAL SLOW IVP SCH (13:45)
[2021-11-03] MEDS: Prazosin HCl 1 MG CAP PO SCH (14:03)
[2021-11-03 20:20] LABS: #Basophils 0.1 thou/uL (0.0-0.2); #Eosinphils 0.1 thou/uL (0.0-0.7); #Lymphocytes 1.1 thou/uL (1.20-3.40); #Monocytes 0.7 thou/uL (0.11-0.59); #Neutrophils 8.8 thou/uL (1.40-6.50); %Basophils 0.5 % (0.0-1.0); %Eosinophils 1.2 % (0.0-10.0); %Lymphocytes 10.1 % (21.0-51.0); %Monocytes 6.2 % (0.0-10.0); %Neutrophils 82.1 % (42.0-75.0); Hemoglobin 12.7 g/dL (14.0-18.0); Mean Corpuscular HGB CONC 34.4 g/dL (32.0-36.0); Mean Corpuscular Hemoglobin 31.4 pg (27.0-31.0); Mean Corpuscular Volume 91.4 fL (78.0-98.0); Mean Platelet Volume 7.4 fL (7.4-10.4); Platelet Count 253 thou/uL (130-400); RBC Distribution Width 12.8 % (11.5-14.5); Red Blood Cell (RBC) Count 4.04 mill/uL (4.70-6.10); White Blood Cell (WBC) Count 10.8 thou/uL (4.8-10.8)
[2021-11-03] MEDS: D5 1/2 NS w/20 mEq KCL 1,000 ML IV SCH (20:31)
[2021-11-03] MEDS ORDERED: Venlafaxine HCl XR 150 MG CAP PO SCH (21:00)
[2021-11-04] MEDS: Morphine 4 MG/ML VIAL SLOW IVP PRN ×4 (01:09→09:47)
[2021-11-04] MEDS: Piperacillin/Tazobactam 3.375 GM in Sodium Chloride 0.9% 100 ML IVPB SCH ×3 (03:13→21:22)
[2021-11-04] MEDS: D5 1/2 NS w/20 mEq KCL 1,000 ML IV SCH ×3 (05:54→21:21)
[2021-11-04 06:04] LABS: Anion Gap 10 mmol/L (10-20); BUN (Urea Nitrogen) 13 mg/dL (8.4-25.7); Calc. Creatinine Clearance 195 mL/min (70-130); Calcium 7.8 mg/dL (7.8-10.44); Carbon Dioxide 25 mmol/L (22-29); Chloride 104 mmol/L (98-107); Glucose 158 mg/dL (70-105); Potassium 3.5 mmol/L (3.5-5.1); Sodium 135 mmol/L (136-145)
[2021-11-04] MEDS: Enoxaparin Sodium 40 MG/0.4 ML SYRINGE SC SCH (09:46)
[2021-11-04] MEDS: Prazosin HCl 1 MG CAP PO SCH (09:47)
[2021-11-04] MEDS: Pantoprazole 40 MG VIAL IVP SCH ×2 (09:47→21:22)
[2021-11-04 09:52] LABS: #Eosinphils 0.1 thou/uL (0.0-0.7); #Lymphocytes 1.1 thou/uL (1.20-3.40); #Monocytes 0.6 thou/uL (0.11-0.59); %Basophils 0.2 % (0.0-1.0); %Eosinophils 0.6 % (0.0-10.0); %Lymphocytes 6.8 % (21.0-51.0); %Monocytes 3.9 % (0.0-10.0); %Neutrophils 88.5 % (42.0-75.0); Hemoglobin 13.3 g/dL (14.0-18.0); Mean Corpuscular HGB CONC 33.7 g/dL (32.0-36.0); Mean Platelet Volume 7.3 fL (7.4-10.4); Platelet Count 327 thou/uL (130-400); RBC Distribution Width 12.9 % (11.5-14.5); Red Blood Cell (RBC) Count 4.27 mill/uL (4.70-6.10); White Blood Cell (WBC) Count 15.8 thou/uL (4.8-10.8)
[2021-11-04] MEDS: Zolpidem Tartrate 5 MG TAB PO PRN (21:21)
[2021-11-05] MEDS: Piperacillin/Tazobactam 3.375 GM in Sodium Chloride 0.9% 100 ML IVPB SCH ×3 (04:09→20:24)
[2021-11-05] MEDS: D5 1/2 NS w/20 mEq KCL 1,000 ML IV SCH ×3 (04:09→20:23)
[2021-11-05 05:56] LABS: #Eosinphils 0.1 thou/uL (0.0-0.7); #Monocytes 0.8 thou/uL (0.11-0.59); #Neutrophils 11.3 thou/uL (1.40-6.50); %Basophils 0.2 % (0.0-1.0); %Eosinophils 0.9 % (0.0-10.0); %Lymphocytes 7.5 % (21.0-51.0); %Monocytes 5.8 % (0.0-10.0); %Neutrophils 85.6 % (42.0-75.0); Hemoglobin 11.5 g/dL (14.0-18.0); Mean Corpuscular HGB CONC 34.5 g/dL (32.0-36.0); Mean Corpuscular Hemoglobin 31.8 pg (27.0-31.0); Mean Corpuscular Volume 92.1 fL (78.0-98.0); Mean Platelet Volume 7.1 fL (7.4-10.4); Platelet Count 326 thou/uL (130-400); Red Blood Cell (RBC) Count 3.62 mill/uL (4.70-6.10); White Blood Cell (WBC) Count 13.3 thou/uL (4.8-10.8)
[2021-11-05] MEDS: Morphine 4 MG/ML VIAL SLOW IVP PRN ×2 (09:37→20:23)
[2021-11-05] MEDS: Enoxaparin Sodium 40 MG/0.4 ML SYRINGE SC SCH (09:42)
[2021-11-05] MEDS: Prazosin HCl 1 MG CAP PO SCH (09:43)
[2021-11-05] MEDS: Pantoprazole 40 MG VIAL IVP SCH ×2 (09:43→20:23)
[2021-11-05] MEDS ORDERED: Iopamidol 370 76% 100 ML VIAL ONE (14:11)
[2021-11-05 15:41] LABS: #Eosinphils 0.1 thou/uL (0.0-0.7); #Lymphocytes 1.1 thou/uL (1.20-3.40); #Monocytes 0.6 thou/uL (0.11-0.59); #Neutrophils 9.7 thou/uL (1.40-6.50); %Basophils 0.1 % (0.0-1.0); %Eosinophils 0.7 % (0.0-10.0); %Lymphocytes 9.2 % (21.0-51.0); %Monocytes 5.4 % (0.0-10.0); %Neutrophils 84.6 % (42.0-75.0); Hemoglobin 11.4 g/dL (14.0-18.0); Mean Corpuscular HGB CONC 33.6 g/dL (32.0-36.0); Mean Corpuscular Hemoglobin 30.9 pg (27.0-31.0); Mean Corpuscular Volume 91.8 fL (78.0-98.0); Platelet Count 336 thou/uL (130-400); RBC Distribution Width 12.9 % (11.5-14.5); Red Blood Cell (RBC) Count 3.69 mill/uL (4.70-6.10); White Blood Cell (WBC) Count 11.4 thou/uL (4.8-10.8)
[2021-11-05] MEDS ORDERED: Multivitamins, Adult 10 ML, TRACE ELEMENT CONCENTRATE 1 ML in CLINIMIX E 5/20 2,000 ML IV SCH ×2 (17:15→22:00)
[2021-11-05] MEDS: PRISTIQ 100 MG PO SCH ×3 (17:59→21:43)
[2021-11-05] MEDS: Zolpidem Tartrate 5 MG TAB PO PRN (20:24)
[2021-11-06] MEDS: D5 1/2 NS w/20 mEq KCL 1,000 ML IV SCH ×2 (01:57→08:32)
[2021-11-06] MEDS: Piperacillin/Tazobactam 3.375 GM in Sodium Chloride 0.9% 100 ML IVPB SCH ×3 (03:20→20:30)
[2021-11-06 05:30] LABS: #Eosinphils 0.1 thou/uL (0.0-0.7); #Lymphocytes 0.7 thou/uL (1.20-3.40); #Monocytes 0.5 thou/uL (0.11-0.59); %Eosinophils 1.5 % (0.0-10.0); %Lymphocytes 7.8 % (21.0-51.0); %Monocytes 5.7 % (0.0-10.0); %Neutrophils 84.9 % (42.0-75.0); Mean Corpuscular Hemoglobin 30.2 pg (27.0-31.0); Mean Corpuscular Volume 91.5 fL (78.0-98.0); Mean Platelet Volume 7.2 fL (7.4-10.4); Platelet Count 371 thou/uL (130-400); RBC Distribution Width 12.9 % (11.5-14.5); Red Blood Cell (RBC) Count 3.65 mill/uL (4.70-6.10); White Blood Cell (WBC) Count 8.3 thou/uL (4.8-10.8)
[2021-11-06] MEDS: Ondansetron PF 4 MG/2 ML Vial IVP PRN ×2 (07:34→20:30)
[2021-11-06] MEDS: Enoxaparin Sodium 40 MG/0.4 ML SYRINGE SC SCH (07:34)
[2021-11-06] MEDS: Pantoprazole 40 MG VIAL IVP SCH ×2 (07:34→20:30)
[2021-11-06] MEDS: Prazosin HCl 1 MG CAP PO SCH (07:35)
[2021-11-06] MEDS: Promethazine HCl 25 MG/ML VIAL IM PRN (11:06)
[2021-11-06] MEDS: Morphine 4 MG/ML VIAL SLOW IVP PRN ×2 (11:57→20:30)
[2021-11-06] MEDS: HumaLOG 300 UNITS/3 ML VIAL SC PRN ×2 (12:27→18:24)
[2021-11-06] MEDS: Multivitamins, Adult 10 ML, TRACE ELEMENT CONCENTRATE 1 ML in CLINIMIX E 5/20 2,000 ML IV SCH (14:32)
[2021-11-06] MEDS: PRISTIQ 100 MG PO SCH (21:22)
[2021-11-07] MEDS: Piperacillin/Tazobactam 3.375 GM in Sodium Chloride 0.9% 100 ML IVPB SCH ×3 (04:35→20:40)
[2021-11-07] MEDS: Ondansetron PF 4 MG/2 ML Vial IVP PRN (04:35)
[2021-11-07] MEDS: Promethazine HCl 25 MG/ML VIAL IM PRN ×4 (06:21→20:42)
[2021-11-07] MEDS: D5 1/2 NS w/20 mEq KCL 1,000 ML IV SCH (09:02)
[2021-11-07] MEDS: Pantoprazole 40 MG VIAL IVP SCH ×2 (09:02→20:41)
[2021-11-07] MEDS: Enoxaparin Sodium 40 MG/0.4 ML SYRINGE SC SCH (09:02)
[2021-11-07] MEDS: Morphine 4 MG/ML VIAL SLOW IVP PRN ×2 (10:49→16:06)
[2021-11-07] MEDS: HumaLOG 300 UNITS/3 ML VIAL SC PRN (11:52)
[2021-11-07] MEDS: Prazosin HCl 1 MG CAP PO SCH (11:52)
[2021-11-07] MEDS ORDERED: Albuterol Sulfate 2.5 mg/3 ml Neb NEB PRN (12:35)
[2021-11-07] MEDS: Multivitamins, Adult 10 ML, TRACE ELEMENT CONCENTRATE 1 ML in CLINIMIX E 5/20 2,000 ML IV SCH (14:06)
[2021-11-07] MEDS: PRISTIQ 100 MG PO SCH (20:41)
[2021-11-08] MEDS: Piperacillin/Tazobactam 3.375 GM in Sodium Chloride 0.9% 100 ML IVPB SCH (04:01)
[2021-11-08] MEDS: HumaLOG 300 UNITS/3 ML VIAL SC PRN ×4 (06:26→21:36)
[2021-11-08] MEDS: Morphine 4 MG/ML VIAL SLOW IVP PRN ×4 (07:38→20:56)
[2021-11-08] MEDS: Prazosin HCl 1 MG CAP PO SCH (08:34)
[2021-11-08] MEDS: Pantoprazole 40 MG VIAL IVP SCH ×2 (08:34→20:53)
[2021-11-08] MEDS: Enoxaparin Sodium 40 MG/0.4 ML SYRINGE SC SCH (08:34)
[2021-11-08] MEDS: Promethazine HCl 25 MG/ML VIAL IM PRN ×4 (08:38→20:55)
[2021-11-08] MEDS: Multivitamins, Adult 10 ML, TRACE ELEMENT CONCENTRATE 1 ML in CLINIMIX E 5/20 2,000 ML IV SCH (14:42)
[2021-11-08] MEDS: D5 1/2 NS w/20 mEq KCL 1,000 ML IV SCH (15:41)
[2021-11-08] MEDS: PRISTIQ 100 MG PO SCH (20:54)
[2021-11-09] MEDS: D5 1/2 NS w/20 mEq KCL 1,000 ML IV SCH (04:39)
[2021-11-09] MEDS: HumaLOG 300 UNITS/3 ML VIAL SC PRN ×2 (05:51→16:53)
[2021-11-09 06:19] VITALS: BMI 39.9
[2021-11-09] MEDS: Pantoprazole 40 MG VIAL IVP SCH ×2 (09:06→21:03)
[2021-11-09] MEDS: Enoxaparin Sodium 40 MG/0.4 ML SYRINGE SC SCH (09:06)
[2021-11-09] MEDS: Prazosin HCl 1 MG CAP PO SCH (09:07)
[2021-11-09] MEDS: Promethazine HCl 25 MG/ML VIAL IM PRN ×2 (09:46→17:36)
[2021-11-09] MEDS: Multivitamins, Adult 10 ML, TRACE ELEMENT CONCENTRATE 1 ML in CLINIMIX E 5/20 2,000 ML IV SCH (14:21)
[2021-11-09] MEDS: fentaNYL 50 mcg/hour Patch TD SCH (15:39)
[2021-11-09] MEDS ORDERED: Octreotide Acetate 50 MCG in Sodium Chloride 0.9% 50 ML IVPB SCH (16:15)
[2021-11-09] MEDS: PRISTIQ 100 MG PO SCH (21:02)
[2021-11-09] MEDS: Octreotide Acetate 50 MCG in Sodium Chloride 0.9% 50 ML IVPB SCH (23:24)
[2021-11-10] MEDS: HumaLOG 300 UNITS/3 ML VIAL SC PRN ×3 (01:12→16:58)
[2021-11-10] MEDS: Promethazine HCl 25 MG/ML VIAL IM PRN ×2 (04:29→11:40)
[2021-11-10] MEDS: Octreotide Acetate 50 MCG in Sodium Chloride 0.9% 50 ML IVPB SCH ×3 (05:59→21:43)
[2021-11-10 06:22] LABS: #Eosinphils 0.2 thou/uL (0.0-0.7); #Lymphocytes 1.4 thou/uL (1.20-3.40); #Monocytes 0.7 thou/uL (0.11-0.59); #Neutrophils 5.2 thou/uL (1.40-6.50); %Basophils 0.4 % (0.0-1.0); %Eosinophils 3.2 % (0.0-10.0); %Lymphocytes 18.5 % (21.0-51.0); %Monocytes 9.4 % (0.0-10.0); %Neutrophils 68.5 % (42.0-75.0); Hemoglobin 12.8 g/dL (14.0-18.0); Mean Corpuscular HGB CONC 33.8 g/dL (32.0-36.0); Mean Corpuscular Hemoglobin 31.1 pg (27.0-31.0); Mean Corpuscular Volume 91.8 fL (78.0-98.0); Mean Platelet Volume 6.2 fL (7.4-10.4); Platelet Count 633 thou/uL (130-400); RBC Distribution Width 12.5 % (11.5-14.5); Red Blood Cell (RBC) Count 4.11 mill/uL (4.70-6.10); White Blood Cell (WBC) Count 7.6 thou/uL (4.8-10.8)
[2021-11-10 06:49] LABS: ALT (SGPT) 56 U/L (8-55); AST (SGOT) 32 U/L (5-34); Albumin 2.8 g/dL (3.5-5.0); Alkaline Phosphatase 106 U/L (40-110); Anion Gap 12 mmol/L (10-20); BUN (Urea Nitrogen) 11 mg/dL (8.4-25.7); Bilirubin, Total 0.7 mg/dL (0.2-1.2); Calc. Creatinine Clearance 193 mL/min (70-130); Calcium 8.5 mg/dL (7.8-10.44); Carbon Dioxide 27 mmol/L (22-29); Chloride 100 mmol/L (98-107); Globulin 4.8 g/dL (2.4-3.5); Glucose 170 mg/dL (70-105); Potassium 4.3 mmol/L (3.5-5.1); Protein, Total 7.6 g/dL (6.0-8.3); Sodium 135 mmol/L (136-145)
[2021-11-10] MEDS ORDERED: Lidocaine 1% w/Epinephrine 1:100K 20 ML VIAL ONE (08:26)
[2021-11-10] MEDS: Prazosin HCl 1 MG CAP PO SCH (12:31)
[2021-11-10] MEDS: Pantoprazole 40 MG VIAL IVP SCH ×2 (12:31→20:49)
[2021-11-10] MEDS: D5 1/2 NS w/20 mEq KCL 1,000 ML IV SCH (12:31)
[2021-11-10] MEDS: Enoxaparin Sodium 40 MG/0.4 ML SYRINGE SC SCH (12:31)
[2021-11-10] MEDS: Multivitamins, Adult 10 ML, TRACE ELEMENT CONCENTRATE 1 ML in CLINIMIX E 5/20 2,000 ML IV SCH (14:16)
[2021-11-10] MEDS: Piperacillin/Tazobactam 3.375 GM in Sodium Chloride 0.9% 100 ML IVPB SCH (16:55)
[2021-11-10] MEDS ORDERED: Promethazine HCl 12.5 MG in Sodium Chloride 0.9% 50 ML IVPB SCH (17:00)
[2021-11-10] MEDS: PRISTIQ 100 MG PO SCH (20:46)
[2021-11-11] MEDS: Promethazine HCl 12.5 MG in Sodium Chloride 0.9% 50 ML IVPB PRN ×3 (00:06→22:27)
[2021-11-11] MEDS: HumaLOG 300 UNITS/3 ML VIAL SC PRN ×4 (00:07→15:31)
[2021-11-11] MEDS: Piperacillin/Tazobactam 3.375 GM in Sodium Chloride 0.9% 100 ML IVPB SCH ×3 (00:10→15:24)
[2021-11-11] MEDS: Octreotide Acetate 50 MCG in Sodium Chloride 0.9% 50 ML IVPB SCH ×3 (06:00→22:27)
[2021-11-11] MEDS: D5 1/2 NS w/20 mEq KCL 1,000 ML IV SCH (06:01)
[2021-11-11] MEDS: Pantoprazole 40 MG VIAL IVP SCH ×2 (08:42→20:31)
[2021-11-11] MEDS: Prazosin HCl 1 MG CAP PO SCH (08:42)
[2021-11-11] MEDS: Enoxaparin Sodium 40 MG/0.4 ML SYRINGE SC SCH (08:42)
[2021-11-11 13:42] LABS: INR-International Normal Ratio 1.2; Prothrombin Time 15.4 sec (12.0-14.7)
[2021-11-11 13:44] LABS: PTT 40.4 sec (22.9-36.1)
[2021-11-11 13:57] LABS: ALT (SGPT) 46 U/L (8-55); AST (SGOT) 25 U/L (5-34); Albumin 2.7 g/dL (3.5-5.0); Alkaline Phosphatase 106 U/L (40-110); Anion Gap 14 mmol/L (10-20); BUN (Urea Nitrogen) 12 mg/dL (8.4-25.7); Bilirubin, Total 0.9 mg/dL (0.2-1.2); Calc. Creatinine Clearance 196 mL/min (70-130); Calcium 8.6 mg/dL (7.8-10.44); Carbon Dioxide 25 mmol/L (22-29); Cardiac Risk 9.1 (Less than 4.5); Chloride 100 mmol/L (98-107); Cholesterol 137 mg/dl (< 200 Desired); Globulin 4.9 g/dL (2.4-3.5); Glucose 198 mg/dL (70-105); HDL Cholesterol 15 mg/dL (>60 Neg Risk); LDL Cholesterol, Calculated 98 mg/dL; Phosphorus 3.3 mg/dL (2.3-4.7); Potassium 4.3 mmol/L (3.5-5.1); Protein, Total 7.6 g/dL (6.0-8.3); Sodium 135 mmol/L (136-145); Triglycerides 121 mg/dL (Less than 150)
[2021-11-11] MEDS: Fat Emulsion 250 ML IVPB SCH (14:28)
[2021-11-11] MEDS: Multivitamins, Adult 10 ML, TRACE ELEMENT CONCENTRATE 1 ML in CLINIMIX E 5/20 2,000 ML IV SCH (14:28)
[2021-11-11] MEDS: Morphine 4 MG/ML VIAL SLOW IVP PRN (15:22)
[2021-11-11] MEDS: PRISTIQ 100 MG PO SCH (20:31)
[2021-11-12] MEDS: Piperacillin/Tazobactam 3.375 GM in Sodium Chloride 0.9% 100 ML IVPB SCH ×3 (00:04→15:05)
[2021-11-12] MEDS: HumaLOG 300 UNITS/3 ML VIAL SC PRN ×3 (00:08→18:01)
[2021-11-12] MEDS: Morphine 4 MG/ML VIAL SLOW IVP PRN (02:55)
[2021-11-12] MEDS: Prazosin HCl 1 MG CAP PO SCH (09:08)
[2021-11-12] MEDS: Enoxaparin Sodium 40 MG/0.4 ML SYRINGE SC SCH (09:09)
[2021-11-12] MEDS: D5 1/2 NS w/20 mEq KCL 1,000 ML IV SCH (09:09)
[2021-11-12] MEDS: Pantoprazole 40 MG VIAL IVP SCH ×2 (09:10→20:13)
[2021-11-12] MEDS: Octreotide Acetate 50 MCG in Sodium Chloride 0.9% 50 ML IVPB SCH ×3 (09:18→22:40)
[2021-11-12] MEDS: Multivitamins, Adult 10 ML, TRACE ELEMENT CONCENTRATE 1 ML in CLINIMIX E 5/20 2,000 ML IV SCH (15:04)
[2021-11-12] MEDS: fentaNYL 50 mcg/hour Patch TD SCH (15:04)
[2021-11-12] MEDS: PRISTIQ 100 MG PO SCH (20:13)
[2021-11-12] MEDS: Promethazine HCl 12.5 MG in Sodium Chloride 0.9% 50 ML IVPB PRN (23:19)
[2021-11-13] MEDS: Piperacillin/Tazobactam 3.375 GM in Sodium Chloride 0.9% 100 ML IVPB SCH ×3 (00:05→16:58)
[2021-11-13] MEDS: Octreotide Acetate 50 MCG in Sodium Chloride 0.9% 50 ML IVPB SCH ×2 (05:50→15:04)
[2021-11-13] MEDS: HumaLOG 300 UNITS/3 ML VIAL SC PRN ×2 (06:51→13:01)
[2021-11-13] MEDS: Enoxaparin Sodium 40 MG/0.4 ML SYRINGE SC SCH (09:53)
[2021-11-13] MEDS: D5 1/2 NS w/20 mEq KCL 1,000 ML IV SCH (09:53)
[2021-11-13] MEDS: Prazosin HCl 1 MG CAP PO SCH (09:54)
[2021-11-13] MEDS: Pantoprazole 40 MG VIAL IVP SCH (09:54)
[2021-11-13] MEDS: Fat Emulsion 250 ML IVPB SCH (15:03)
[2021-11-13] MEDS: Multivitamins, Adult 10 ML, TRACE ELEMENT CONCENTRATE 1 ML in CLINIMIX E 5/20 2,000 ML IV SCH (15:04)
[2021-11-13 15:19] VITALS: BP 125/85; TEMP 98.5
== END 2021-11-13 16:30 | disposition home or self-care (01) | DRG 907 ==
LOC: SDC 05:36 → SJJU 10:29 → SURG A 10-28 14:39 → CCU 10-28 19:23 → SURG A 10-31 15:28
PROVIDERS: ADMIT Surgery; ATTEND Surgery
PROC: 0DNW4ZZ Release Peritoneum, Percutaneous Endoscopic Approach (ICD-10-PCS; 2021-10-26)
PROC: 0WPF0JZ Removal of Synthetic Substitute from Abdominal Wall, Open Approach (ICD-10-PCS; principal; 2021-10-28)
PROC: 0WJF4ZZ Inspection of Abdominal Wall, Percutaneous Endoscopic Approach (ICD-10-PCS; 2021-10-28)
PROC: 0DN80ZZ Release Small Intestine, Open Approach (ICD-10-PCS; 2021-10-28)
PROC: 0DQ80ZZ Repair Small Intestine, Open Approach (ICD-10-PCS; 2021-10-28)
PROC: 05HY33Z Insertion of Infusion Device into Upper Vein, Percutaneous Approach (ICD-10-PCS; 2021-10-28)
PROC: 0W9F00Z Drainage of Abdominal Wall with Drainage Device, Open Approach (ICD-10-PCS; 2021-10-30)
PROC: 5A09357 Assistance with Respiratory Ventilation, Less than 24 Consecutive Hours, Continuous Positive Airway Pressure (ICD-10-PCS; 2021-10-30)
PROC: 3E04317 Introduction of Other Thrombolytic into Central Vein, Percutaneous Approach (ICD-10-PCS; 2021-10-30)
PROC: 3E0436Z Introduction of Nutritional Substance into Central Vein, Percutaneous Approach (ICD-10-PCS; 2021-10-31)
PROC: 0HQ7XZZ Repair Abdomen Skin, External Approach (ICD-10-PCS; 2021-11-10)
PROC: 02HV33Z Insertion of Infusion Device into Superior Vena Cava, Percutaneous Approach (ICD-10-PCS; 2021-11-10)
PROC: B5181ZA Fluoroscopy of Superior Vena Cava using Low Osmolar Contrast, Guidance (ICD-10-PCS; 2021-11-10)
PROC: B548ZZA Ultrasonography of Superior Vena Cava, Guidance (ICD-10-PCS; 2021-11-10)
DX: T85.898A Other specified complication of other internal prosthetic devices, implants and grafts, initial encounter (principal); K65.8 Other peritonitis; J96.00 Acute respiratory failure, unspecified whether with hypoxia or hypercapnia; K63.2 Fistula of intestine; K91.71 Accidental puncture and laceration of a digestive system organ or structure during a digestive system procedure; Z68.41 Body mass index [BMI] 40.0-44.9, adult; T81.83XA Persistent postprocedural fistula, initial encounter; Z20.822 Contact with and (suspected) exposure to COVID-19; K66.0 Peritoneal adhesions (postprocedural) (postinfection); N32.81 Overactive bladder; N40.1 Benign prostatic hyperplasia with lower urinary tract symptoms; N39.498 Other specified urinary incontinence; E66.01 Morbid (severe) obesity due to excess calories; F32.A Depression, unspecified; E11.9 Type 2 diabetes mellitus without complications; G43.909 Migraine, unspecified, not intractable, without status migrainosus; F43.10 Post-traumatic stress disorder, unspecified; G89.29 Other chronic pain; I10 Essential (primary) hypertension; N35.919 Unspecified urethral stricture, male, unspecified site; J45.909 Unspecified asthma, uncomplicated; I25.10 Atherosclerotic heart disease of native coronary artery without angina pectoris; G47.33 Obstructive sleep apnea (adult) (pediatric); Y83.1 Surgical operation with implant of artificial internal device as the cause of abnormal reaction of the patient, or of later complication, without mention of misadventure at the time of the procedure; Y83.8 Other surgical procedures as the cause of abnormal reaction of the patient, or of later complication, without mention of misadventure at the time of the procedure; Z18.89 Other specified retained foreign body fragments; Z98.1 Arthrodesis status; Z86.010 Personal history of colon polyps; Z78.1 Physical restraint status; Z90.49 Acquired absence of other specified parts of digestive tract; Z90.89 Acquired absence of other organs; Z98.890 Other specified postprocedural states; Z87.891 Personal history of nicotine dependence; Z79.899 Other long term (current) drug therapy; Z53.31 Laparoscopic surgical procedure converted to open procedure; Z79.890 Hormone replacement therapy; Z79.84 Long term (current) use of oral hypoglycemic drugs; Z83.3 Family history of diabetes mellitus; Z82.49 Family history of ischemic heart disease and other diseases of the circulatory system; Z81.8 Family history of other mental and behavioral disorders; G47.00 Insomnia, unspecified
CPT/HCPCS: 36415; 36416; 36569; 36600; 71045; 74018; 74177; 80048; 80053; 80061; 82805; 83735; 84100; 84134; 85025; 85060; 85610; 85730; 87070; 87205; 88305; 93005; 93010; 94002; 94003; 94640; C1751; C9113; J0694; J1100; J1170; J1200; J1644; J1650; J1815; J1885; J1940; J2270; J2354; J2405; J2543; J2550; J2704; J2765; J3010; J3480; J3490; J7030; J7050; J7620; P9045; Q9967; S0020; S0028

== ENCOUNTER 2022-06-04 14:23 | Outpatient (CLI) | payer BC | END 2022-06-04 14:24 | disposition home or self-care (01) | LOC: BICCT 14:23 | PROVIDERS: ATTEND Surgery | DX: T81.89XA Other complications of procedures, not elsewhere classified, initial encounter (principal) | CPT/HCPCS: 74177 ==

== ENCOUNTER 2022-07-13 09:50 | Inpatient (IN) | payer BC, MEDICARE ==
[2022-07-13 10:28] LABS: #Eosinphils 0.2 thou/uL (0.0-0.7); #Lymphocytes 2.4 thou/uL (1.20-3.40); #Monocytes 0.5 thou/uL (0.11-0.59); %Basophils 0.4 % (0.0-1.0); %Eosinophils 3.1 % (0.0-10.0); %Lymphocytes 40.1 % (21.0-51.0); %Monocytes 7.5 % (0.0-10.0); %Neutrophils 48.9 % (42.0-75.0); Hemoglobin 14.4 g/dL (14.0-18.0); Mean Corpuscular HGB CONC 34.9 g/dL (32.0-36.0); Mean Corpuscular Hemoglobin 30.7 pg (27.0-31.0); Mean Corpuscular Volume 87.9 fL (78.0-98.0); Mean Platelet Volume 7.6 fL (7.4-10.4); Platelet Count 257 thou/uL (130-400); RBC Distribution Width 12.6 % (11.5-14.5); Red Blood Cell (RBC) Count 4.67 mill/uL (4.70-6.10); White Blood Cell (WBC) Count 6.1 thou/uL (4.8-10.8)
[2022-07-13 10:48] LABS: ALT (SGPT) 23 U/L (8-55); AST (SGOT) 28 U/L (5-34); Albumin 4.2 g/dL (3.5-5.0); Alkaline Phosphatase 131 U/L (40-110); Anion Gap 15 mmol/L (10-20); BUN (Urea Nitrogen) 15 mg/dL (8.4-25.7); Bilirubin, Total 0.4 mg/dL (0.2-1.2); Calc. Creatinine Clearance 0 mL/min (70-130); Calcium 9.2 mg/dL (7.8-10.44); Carbon Dioxide 26 mmol/L (22-29); Chloride 101 mmol/L (98-107); Estimated GFR 71; Globulin 3.6 g/dL (2.4-3.5); Glucose 139 mg/dL (70-105); Lipase 35 U/L (8-78); Protein, Total 7.8 g/dL (6.0-8.3); Sodium 138 mmol/L (136-145)
[2022-07-13] MEDS ORDERED: Piperacillin/Tazobactam 4.5 GM VIAL ONE (11:52)
[2022-07-13] MEDS ORDERED: Ketorolac Tromethamine 30 MG/ML VIAL ONE (12:37)
[2022-07-13 13:43] LABS: Bilirubin Negative (Negative); Blood, Urine Negative (Negative); Clarity Clear (Clear); Glucose, Urine (Dipstick) Normal (Negative); Ketone, Urine Negative (Negative); Leukocyte Negative Leu/uL (Negative); Nitrite Negative (Negative); Protein, Urine (Dipstick) Negative (Neg-Trace); Specific Gravity, Urine 1.041 (1.002-1.036); Urobilinogen Normal mg/dL (Less than 2); pH, Urine 5.5 (5.0-9.0)
[2022-07-13] MEDS ORDERED: Morphine 4 MG/ML VIAL ONE (14:01)
[2022-07-13] MEDS ORDERED: diphenhydrAMINE 50 MG/ML VIAL ONE (14:02)
[2022-07-13] MEDS ORDERED: Prochlorperazine 10 MG/2 ML VIAL ONE (14:02)
[2022-07-13] MEDS ORDERED: Prochlorperazine 10 MG/2 ML VIAL IVP SCH (14:15)
[2022-07-13] MEDS ORDERED: Ondansetron PF 4 MG/2 ML Vial IVP PRN (15:45)
[2022-07-13] MEDS ORDERED: Ondansetron ODT 4 MG TAB SL PRN (15:45)
[2022-07-13] MEDS ORDERED: Morphine 4 MG/ML VIAL SLOW IVP PRN (15:47)
[2022-07-13] MEDS: Piperacillin/Tazobactam 3.375 GM in Sodium Chloride 0.9% 100 ML IVPB SCH (16:07)
[2022-07-13] MEDS: Sodium Chloride 0.9% 1,000 ML IV SCH (16:08)
[2022-07-13 16:11] VITALS: BMI 38.0
[2022-07-14] MEDS: Morphine 4 MG/ML VIAL SLOW IVP PRN ×4 (01:40→18:59)
[2022-07-14] MEDS: Sodium Chloride 0.9% 1,000 ML IV SCH (06:11)
[2022-07-14] MEDS ORDERED: Acetaminophen 650 MG/20.3 ML UDCUP PO PRN (10:31)
[2022-07-14] MEDS ORDERED: Dextrose 50% Abboject 50 ML SYRINGE SLOW IVP PRN (10:32)
[2022-07-14] MEDS ORDERED: Insulin Regular 300 UNITS/3 ML VIAL SC PRN (10:32)
[2022-07-14] MEDS ORDERED: Dextrose 5% in Water 1,000 ML IV PRN (10:32)
[2022-07-14] MEDS ORDERED: Piperacillin/Tazobactam 3.375 GM in Sodium Chloride 0.9% 100 ML IVPB SCH ×2 (11:15→12:00)
[2022-07-14] MEDS: Piperacillin/Tazobactam 3.375 GM in Sodium Chloride 0.9% 100 ML IVPB SCH ×2 (16:23)
[2022-07-14] MEDS: Prazosin HCl 1 MG CAP PO SCH (20:20)
[2022-07-14] MEDS: Montelukast Sodium 10 mg Tablet PO SCH (20:20)
[2022-07-15] MEDS: Morphine 4 MG/ML VIAL SLOW IVP PRN ×2 (00:02→11:22)
[2022-07-15] MEDS: Piperacillin/Tazobactam 3.375 GM in Sodium Chloride 0.9% 100 ML IVPB SCH ×4 (00:03→23:04)
[2022-07-15] MEDS: Levothyroxine Sodium 75 MCG TAB PO SCH (06:03)
[2022-07-15] MEDS: Prazosin HCl 1 MG CAP PO SCH ×2 (08:03→19:52)
[2022-07-15] MEDS: Pantoprazole 40 MG VIAL IVP SCH (08:03)
[2022-07-15] MEDS: Ondansetron PF 4 MG/2 ML Vial IVP PRN (13:54)
[2022-07-15] MEDS: Montelukast Sodium 10 mg Tablet PO SCH (19:52)
[2022-07-15] MEDS ORDERED: BELBUCA PO SCH (21:00)
[2022-07-16] MEDS: Ondansetron PF 4 MG/2 ML Vial IVP PRN (03:42)
[2022-07-16] MEDS: Levothyroxine Sodium 75 MCG TAB PO SCH (06:11)
[2022-07-16] MEDS: Prazosin HCl 1 MG CAP PO SCH ×2 (08:01→19:49)
[2022-07-16] MEDS: Pantoprazole 40 MG VIAL IVP SCH (08:01)
[2022-07-16] MEDS: Piperacillin/Tazobactam 3.375 GM in Sodium Chloride 0.9% 100 ML IVPB SCH ×3 (08:01→23:02)
[2022-07-16] MEDS: Montelukast Sodium 10 mg Tablet PO SCH (19:49)
[2022-07-17] MEDS: Levothyroxine Sodium 75 MCG TAB PO SCH (05:17)
[2022-07-17] MEDS: Prazosin HCl 1 MG CAP PO SCH (08:42)
[2022-07-17] MEDS: Pantoprazole 40 MG VIAL IVP SCH (08:42)
[2022-07-17] MEDS: Piperacillin/Tazobactam 3.375 GM in Sodium Chloride 0.9% 100 ML IVPB SCH (08:42)
[2022-07-17 12:38] VITALS: BP 121/79; TEMP 97.2
[2022-07-17] MEDS: Ondansetron PF 4 MG/2 ML Vial IVP PRN (12:55)
== END 2022-07-17 15:19 | disposition home or self-care (01) | DRG 921 ==
LOC: ERS 09:50 → ERHOLD 13:54 → SURG A 15:24 → OBSVTOIN 07-14 15:20
PROVIDERS: ADMIT Surgery; ATTEND Surgery
DX: T85.79XA Infection and inflammatory reaction due to other internal prosthetic devices, implants and grafts, initial encounter (principal); Z20.822 Contact with and (suspected) exposure to COVID-19; Y83.1 Surgical operation with implant of artificial internal device as the cause of abnormal reaction of the patient, or of later complication, without mention of misadventure at the time of the procedure; G43.909 Migraine, unspecified, not intractable, without status migrainosus; F34.1 Dysthymic disorder; G89.29 Other chronic pain; Z90.49 Acquired absence of other specified parts of digestive tract; Z90.89 Acquired absence of other organs; Z98.890 Other specified postprocedural states; Z83.3 Family history of diabetes mellitus; Z80.1 Family history of malignant neoplasm of trachea, bronchus and lung; Z79.899 Other long term (current) drug therapy
CPT/HCPCS: 74177; 80053; 81003; 83605; 83690; 85025; 87040; 93005; 94760; 96365; 96375; 96376; C9113; G0378; J0780; J1200; J1885; J2270; J2405; J2543; J3490; J7050; Q9967; U0003; U0005

== ENCOUNTER 2022-08-24 15:35 | Inpatient (IN) | payer BC, MEDICARE ==
[2022-08-24 16:38] LABS: #Eosinphils 0.3 thou/uL (0.0-0.7); #Lymphocytes 2.5 thou/uL (1.20-3.40); #Monocytes 0.4 thou/uL (0.11-0.59); #Neutrophils 3.2 thou/uL (1.40-6.50); %Basophils 0.3 % (0.0-1.0); %Eosinophils 4.1 % (0.0-10.0); %Lymphocytes 38.6 % (21.0-51.0); %Monocytes 6.9 % (0.0-10.0); %Neutrophils 50.1 % (42.0-75.0); Hemoglobin 14.1 g/dL (14.0-18.0); Mean Corpuscular HGB CONC 34.1 g/dL (32.0-36.0); Mean Corpuscular Hemoglobin 30.5 pg (27.0-31.0); Mean Corpuscular Volume 89.2 fl (78.0-98.0); Mean Platelet Volume 6.9 fL (7.4-10.4); Platelet Count 238 thou/uL (130-400); RBC Distribution Width 12.5 % (11.5-14.5); Red Blood Cell (RBC) Count 4.62 mill/uL (4.70-6.10); White Blood Cell (WBC) Count 6.3 thou/uL (4.8-10.8)
[2022-08-24] MEDS ORDERED: Morphine 4 MG/ML VIAL ONE ×2 (16:42→19:13)
[2022-08-24] MEDS ORDERED: Ondansetron PF 4 MG/2 ML Vial ONE (16:42)
[2022-08-24 17:18] LABS: ALT (SGPT) 36 U/L (8-55); AST (SGOT) 33 U/L (5-34); Albumin 4.3 g/dL (3.5-5.0); Alkaline Phosphatase 129 U/L (40-110); Anion Gap 11 mmol/L (10-20); BUN (Urea Nitrogen) 12 mg/dL (8.4-25.7); Bilirubin, Total 0.4 mg/dL (0.2-1.2); Calc. Creatinine Clearance 0 mL/min (70-130); Calcium 9.5 mg/dL (7.8-10.44); Carbon Dioxide 30 mmol/L (22-29); Chloride 101 mmol/L (98-107); Estimated GFR 71; Globulin 3.5 g/dL (2.4-3.5); Glucose 121 mg/dL (70-105); Lipase 24 U/L (8-78); Potassium 3.9 mmol/L (3.5-5.1); Protein, Total 7.8 g/dL (6.0-8.3); Sodium 138 mmol/L (136-145)
[2022-08-24 19:24] LABS: Bilirubin Negative (Negative); Blood, Urine Negative (Negative); Clarity Clear (Clear); Glucose, Urine (Dipstick) Normal (Negative); Ketone, Urine Negative (Negative); Leukocyte Negative Leu/uL (Negative); Nitrite Negative (Negative); Protein, Urine (Dipstick) Negative (Neg-Trace); Specific Gravity, Urine 1.039 (1.002-1.036); Urobilinogen Normal mg/dL (Less than 2); pH, Urine 6.5 (5.0-9.0)
[2022-08-24] MEDS ORDERED: Ondansetron PF 4 MG/2 ML Vial IVP PRN (21:15)
[2022-08-24] MEDS ORDERED: Ondansetron ODT 4 MG TAB SL PRN (21:15)
[2022-08-24] MEDS: Morphine 4 MG/ML VIAL SLOW IVP PRN (21:50)
[2022-08-24] MEDS: Sodium Chloride 0.9% 1,000 ML IV SCH (21:50)
[2022-08-24] MEDS: Piperacillin/Tazobactam 3.375 GM in Sodium Chloride 0.9% 100 ML IVPB SCH (21:50)
[2022-08-25 01:23] LABS: SARS-CoV-2 NAA Rapid Test Not Detected (NotDetected)
[2022-08-25] MEDS: Morphine 4 MG/ML VIAL SLOW IVP PRN ×6 (01:50→21:03)
[2022-08-25] MEDS ORDERED: Piperacillin/Tazobactam 3.375 GM in Sodium Chloride 0.9% 100 ML IVPB SCH ×2 (02:00→09:30)
[2022-08-25] MEDS: Sodium Chloride 0.9% 1,000 ML IV SCH (03:55)
[2022-08-25 04:40] VITALS: BMI 38.2
[2022-08-25] MEDS ORDERED: Morphine 2 MG/ML VIAL SLOW IVP PRN (09:19)
[2022-08-25] MEDS ORDERED: Morphine 4 MG/ML VIAL SLOW IVP PRN (09:30)
[2022-08-25] MEDS ORDERED: GoLYTELY 4,000 ml Bottle PO SCH (10:15)
[2022-08-25] MEDS: Piperacillin/Tazobactam 3.375 GM in Sodium Chloride 0.9% 100 ML IVPB SCH ×3 (10:38→21:05)
[2022-08-25] MEDS: Ondansetron PF 4 MG/2 ML Vial IVP PRN (19:44)
[2022-08-26] MEDS: Morphine 4 MG/ML VIAL SLOW IVP PRN ×4 (00:58→15:52)
[2022-08-26] MEDS: Piperacillin/Tazobactam 3.375 GM in Sodium Chloride 0.9% 100 ML IVPB SCH ×3 (02:28→18:14)
[2022-08-26] MEDS: Ketorolac Tromethamine 30 MG/ML VIAL IVP SCH ×3 (02:55→14:09)
[2022-08-26] MEDS ORDERED: GoLYTELY 4,000 ml Bottle PO SCH (09:00)
[2022-08-26] MEDS: Ondansetron PF 4 MG/2 ML Vial IVP PRN (11:20)
[2022-08-26 17:48] VITALS: BP 126/75; TEMP 98.4
[2022-08-28] MEDS ORDERED: FLU VACC QS2022-23(6MOS UP)/PF 60 MCG/0.5 ML SYRINGE IM ONE (05:00)
== END 2022-08-26 17:30 | disposition home or self-care (01) | DRG 920 ==
LOC: ERS 15:35 → SURG B 19:45 → OBSVTOIN 08-25 15:20
PROVIDERS: ADMIT Surgery; ATTEND Surgery
DX: T85.79XA Infection and inflammatory reaction due to other internal prosthetic devices, implants and grafts, initial encounter (principal); K63.2 Fistula of intestine; Z20.822 Contact with and (suspected) exposure to COVID-19; G43.909 Migraine, unspecified, not intractable, without status migrainosus; G89.29 Other chronic pain; F34.1 Dysthymic disorder; Y83.1 Surgical operation with implant of artificial internal device as the cause of abnormal reaction of the patient, or of later complication, without mention of misadventure at the time of the procedure; Z90.89 Acquired absence of other organs; Z90.49 Acquired absence of other specified parts of digestive tract; Z80.1 Family history of malignant neoplasm of trachea, bronchus and lung; Z83.3 Family history of diabetes mellitus
CPT/HCPCS: 74177; 80053; 81003; 83605; 83690; 84484; 85025; 87040; 93005; 96361; 96365; 96374; 96375; 96376; G0378; J1885; J2270; J2405; J2543; J3490; J7050; Q9967; U0002

== ENCOUNTER 2022-09-05 04:31 | Inpatient (IN) | payer BC, MEDICARE ==
[2022-09-05] MEDS ORDERED: HYDROmorphone 0.5 MG/0.5 ML SYRINGE ONE (05:05)
[2022-09-05] MEDS ORDERED: Ondansetron PF 4 MG/2 ML Vial ONE (05:06)
[2022-09-05] MEDS ORDERED: Piperacillin/Tazobactam 3.375 GM VIAL ONE (05:06)
[2022-09-05] MEDS ORDERED: Vancomycin 1 GM/200 ML (FROZEN) BAG ONE (05:10)
[2022-09-05 05:20] LABS: #Eosinphils 0.1 thou/uL (0.0-0.7); #Lymphocytes 0.9 thou/uL (1.20-3.40); #Monocytes 0.9 thou/uL (0.11-0.59); #Neutrophils 7.6 thou/uL (1.40-6.50); %Eosinophils 0.6 % (0.0-10.0); %Lymphocytes 9.4 % (21.0-51.0); %Monocytes 9.5 % (0.0-10.0); %Neutrophils 80.5 % (42.0-75.0); Hemoglobin 10.5 g/dL (14.0-18.0); Mean Corpuscular HGB CONC 33.4 g/dL (32.0-36.0); Mean Corpuscular Hemoglobin 30.2 pg (27.0-31.0); Mean Corpuscular Volume 90.6 fl (78.0-98.0); Mean Platelet Volume 7.4 fL (7.4-10.4); Platelet Count 326 10x3/uL (130-400); RBC Distribution Width 12.8 % (11.5-14.5); Red Blood Cell (RBC) Count 3.48 mill/uL (4.70-6.10); White Blood Cell (WBC) Count 9.4 10x3/uL (4.8-10.8)
[2022-09-05] MEDS ORDERED: VANCOMYCIN 2 GRAM/500 ML BAG 2 GM in Premix Bag 1 BAG IVPB SCH (05:45)
[2022-09-05 05:47] LABS: ALT (SGPT) 65 U/L (8-55); AST (SGOT) 44 U/L (5-34); Albumin 3.7 g/dL (3.5-5.0); Alkaline Phosphatase 79 U/L (40-110); Anion Gap 18 mmol/L (10-20); BUN (Urea Nitrogen) 11 mg/dL (8.4-25.7); Bilirubin, Total 1.4 mg/dL (0.2-1.2); Calc. Creatinine Clearance 0 mL/min (70-130); Calcium 9.4 mg/dL (7.8-10.44); Carbon Dioxide 23 mmol/L (22-29); Chloride 99 mmol/L (98-107); Estimated GFR 90; Globulin 3.8 g/dL (2.4-3.5); Glucose 182 mg/dL (70-105); Lipase 39 U/L (8-78); Potassium 3.6 mmol/L (3.5-5.1); Protein, Total 7.5 g/dL (6.0-8.3); Sodium 136 mmol/L (136-145)
[2022-09-05] MEDS ORDERED: Piperacillin/Tazobactam 1.125 GM in Sodium Chloride 0.9% 100 ML IVPB SCH (06:00)
[2022-09-05 07:58] LABS: Bacteria/HPF None Seen HPF (None Seen); Bilirubin Negative (Negative); Blood, Urine 2+ (Negative); Clarity Clear (Clear); Glucose, Urine (Dipstick) Normal (Negative); Ketone, Urine 10 mg/dL (Negative); Leukocyte Negative Leu/uL (Negative); Nitrite Negative (Negative); Protein, Urine (Dipstick) 30 mg/dL (Neg-Trace); Squamous Epithelial None Seen HPF (0-3); Urobilinogen Normal mg/dL (Less than 2); WBC/HPF 0-3 HPF (0-3); pH, Urine 6.5 (5.0-9.0)
[2022-09-05 07:59] LABS: Specific Gravity, Urine Greater than 1.060 (1.002-1.036)
[2022-09-05] MEDS ORDERED: Morphine 4 MG/ML VIAL ONE (08:00)
[2022-09-05] MEDS ORDERED: Iopamidol-370 76% 500 ML 1 ML ONE (09:32)
[2022-09-05] MEDS ORDERED: Heparin 1,000 UNITS/ML VIAL ONE (10:07)
[2022-09-05] MEDS ORDERED: FLU VACC QS2022-23(6MOS UP)/PF 60 MCG/0.5 ML SYRINGE IM ONE (11:15)
[2022-09-05] MEDS ORDERED: Morphine 2 MG/ML VIAL SLOW IVP PRN (12:00)
[2022-09-05] MEDS ORDERED: Piperacillin/Tazobactam 3.375 GM in Sodium Chloride 0.9% 100 ML IVPB SCH ×2 (12:00→12:15)
[2022-09-05] MEDS: Morphine 4 MG/ML VIAL SLOW IVP PRN ×3 (12:14→21:11)
[2022-09-05] MEDS: Lactated Ringer's 1,000 ML IV SCH ×3 (12:15→21:04)
[2022-09-05] MEDS: Ondansetron PF 4 MG/2 ML Vial IVP PRN (12:24)
[2022-09-05] MEDS ORDERED: Ketorolac Tromethamine 30 MG/ML VIAL IVP SCH (12:30)
[2022-09-05] MEDS: Ketorolac Tromethamine 30 MG/ML VIAL IVP SCH (17:31)
[2022-09-05] MEDS: Piperacillin/Tazobactam 3.375 GM in Sodium Chloride 0.9% 100 ML IVPB SCH (21:03)
[2022-09-05] MEDS: Famotidine/PF 20 mg/2ml Vial SLOW IVP SCH (21:04)
[2022-09-06] MEDS: Ketorolac Tromethamine 30 MG/ML VIAL IVP SCH ×5 (00:23→23:33)
[2022-09-06] MEDS: Morphine 4 MG/ML VIAL SLOW IVP PRN ×4 (02:11→15:33)
[2022-09-06] MEDS: Lactated Ringer's 1,000 ML IV SCH ×3 (02:13→22:33)
[2022-09-06] MEDS: Piperacillin/Tazobactam 3.375 GM in Sodium Chloride 0.9% 100 ML IVPB SCH ×3 (05:02→21:09)
[2022-09-06 06:06] LABS: #Eosinphils 0.3 thou/uL (0.0-0.7); #Lymphocytes 1.3 thou/uL (1.20-3.40); #Monocytes 0.8 thou/uL (0.11-0.59); #Neutrophils 3.6 thou/uL (1.40-6.50); %Basophils 0.4 % (0.0-1.0); %Eosinophils 5.7 % (0.0-10.0); %Lymphocytes 21.2 % (21.0-51.0); %Monocytes 13.1 % (0.0-10.0); %Neutrophils 59.6 % (42.0-75.0); Hemoglobin 8.4 g/dL (14.0-18.0); Mean Corpuscular HGB CONC 32.4 g/dL (32.0-36.0); Mean Corpuscular Hemoglobin 29.8 pg (27.0-31.0); Mean Corpuscular Volume 91.9 fl (78.0-98.0); Mean Platelet Volume 7.2 fL (7.4-10.4); Platelet Count 300 10x3/uL (130-400); RBC Distribution Width 12.7 % (11.5-14.5); Red Blood Cell (RBC) Count 2.83 mill/uL (4.70-6.10); White Blood Cell (WBC) Count 6.1 10x3/uL (4.8-10.8)
[2022-09-06 06:31] LABS: Anion Gap 12 mmol/L (10-20); BUN (Urea Nitrogen) 19 mg/dL (8.4-25.7); Calc. Creatinine Clearance 141 mL/min (70-130); Calcium 8.8 mg/dL (7.8-10.44); Carbon Dioxide 25 mmol/L (22-29); Chloride 104 mmol/L (98-107); Estimated GFR 98; Glucose 109 mg/dL (70-105); Potassium 3.6 mmol/L (3.5-5.1); Sodium 137 mmol/L (136-145)
[2022-09-06] MEDS: Famotidine/PF 20 mg/2ml Vial SLOW IVP SCH ×2 (09:14→21:09)
[2022-09-06] MEDS ORDERED: Lidocaine 1% (PF) 30 ML VIAL ONE (09:44)
[2022-09-06] MEDS: Enoxaparin Sodium 40 MG/0.4 ML SYRINGE SC SCH (11:03)
[2022-09-06 11:05] LABS: ALT (SGPT) 35 U/L (8-55); AST (SGOT) 15 U/L (5-34); Alkaline Phosphatase 63 U/L (40-110); Anion Gap 14 mmol/L (10-20); BUN (Urea Nitrogen) 19 mg/dL (8.4-25.7); Bilirubin, Total 0.9 mg/dL (0.2-1.2); Calc. Creatinine Clearance 138 mL/min (70-130); Calcium 9.1 mg/dL (7.8-10.44); Carbon Dioxide 23 mmol/L (22-29); Cardiac Risk 7.9 (Less than 4.5); Chloride 104 mmol/L (98-107); Cholesterol 143 mg/dl (< 200 Desired); Estimated GFR 96; Globulin 3.3 g/dL (2.4-3.5); Glucose 122 mg/dL (70-105); HDL Cholesterol 18 mg/dL (>60 Neg Risk); LDL Cholesterol, Calculated 101 mg/dL; Magnesium 1.8 mg/dL (1.6-2.6); Phosphorus 2.2 mg/dL (2.3-4.7); Potassium 3.5 mmol/L (3.5-5.1); Protein, Total 6.3 g/dL (6.0-8.3); Sodium 137 mmol/L (136-145); Triglycerides 118 mg/dL (Less than 150)
[2022-09-06 11:05] LABS: INR-International Normal Ratio 1.3; Prothrombin Time 17.1 sec (12.0-14.7)
[2022-09-06 11:06] LABS: PTT 50.9 sec (22.9-36.1)
[2022-09-06] MEDS: Ondansetron PF 4 MG/2 ML Vial IVP PRN (11:08)
[2022-09-06] MEDS: Multivitamins, Adult 10 ML, TRACE ELEMENT CONCENTRATE 1 ML, Fat Emulsion 250 ML in D15W... IV SCH (14:02)
[2022-09-06] MEDS ORDERED: Dextrose 50% Abboject 50 ML SYRINGE IVP PRN (14:15)
[2022-09-06] MEDS ORDERED: Dextrose 5% in Water 1,000 ML IV PRN (14:15)
[2022-09-06] MEDS ORDERED: Zolpidem Tartrate 5 MG TAB PO PRN (15:30)
[2022-09-06] MEDS ORDERED: diphenhydrAMINE 50 MG/ML VIAL IM/IV PRN (15:30)
[2022-09-06] MEDS ORDERED: Naloxone HCl 0.4 mg/ml Vial IV PRN (15:30)
[2022-09-06] MEDS ORDERED: diphenhydrAMINE 25 MG CAP PO PRN (15:30)
[2022-09-06] MEDS: HYDROmorphone/PF 10 MG in Sodium Chloride 0.9% 99 ML IVPB PRN (16:22)
[2022-09-06] MEDS: Promethazine HCl 25 MG/ML VIAL IM PRN (16:25)
[2022-09-07] MEDS: Lactated Ringer's 1,000 ML IV SCH ×2 (03:42→11:21)
[2022-09-07] MEDS: Piperacillin/Tazobactam 3.375 GM in Sodium Chloride 0.9% 100 ML IVPB SCH ×3 (05:09→21:20)
[2022-09-07 05:50] LABS: #Eosinphils 0.3 thou/uL (0.0-0.7); #Lymphocytes 1.2 thou/uL (1.20-3.40); #Monocytes 0.6 thou/uL (0.11-0.59); #Neutrophils 3.5 thou/uL (1.40-6.50); %Basophils 0.5 % (0.0-1.0); %Eosinophils 5.1 % (0.0-10.0); %Monocytes 10.4 % (0.0-10.0); Mean Corpuscular Hemoglobin 29.9 pg (27.0-31.0); Mean Corpuscular Volume 93.5 fl (78.0-98.0); Mean Platelet Volume 6.8 fL (7.4-10.4); Platelet Count 326 10x3/uL (130-400); RBC Distribution Width 12.9 % (11.5-14.5); Red Blood Cell (RBC) Count 2.67 mill/uL (4.70-6.10); White Blood Cell (WBC) Count 5.6 10x3/uL (4.8-10.8)
[2022-09-07] MEDS: Ketorolac Tromethamine 30 MG/ML VIAL IVP SCH ×3 (06:25→17:51)
[2022-09-07 06:29] LABS: Anion Gap 10 mmol/L (10-20); BUN (Urea Nitrogen) 15 mg/dL (8.4-25.7); Calc. Creatinine Clearance 152 mL/min (70-130); Calcium 8.6 mg/dL (7.8-10.44); Carbon Dioxide 28 mmol/L (22-29); Chloride 103 mmol/L (98-107); Estimated GFR 102; Glucose 146 mg/dL (70-105); Potassium 3.4 mmol/L (3.5-5.1); Sodium 138 mmol/L (136-145)
[2022-09-07] MEDS ORDERED: Hyoscyamine Sulfate SL 0.125 mg Tablet PO PRN (07:36)
[2022-09-07] MEDS: Famotidine/PF 20 mg/2ml Vial SLOW IVP SCH ×2 (09:33→21:20)
[2022-09-07] MEDS: Enoxaparin Sodium 40 MG/0.4 ML SYRINGE SC SCH (09:33)
[2022-09-07] MEDS: HYDROmorphone/PF 10 MG in Sodium Chloride 0.9% 99 ML IVPB PRN (11:16)
[2022-09-07] MEDS: Multivitamins, Adult 10 ML, TRACE ELEMENT CONCENTRATE 1 ML, Fat Emulsion 250 ML in D15W... IV SCH (15:35)
[2022-09-07] MEDS: Ondansetron PF 4 MG/2 ML Vial IVP PRN (15:35)
[2022-09-08] MEDS: Lactated Ringer's 1,000 ML IV SCH ×5 (00:06→20:37)
[2022-09-08] MEDS: Ketorolac Tromethamine 30 MG/ML VIAL IVP SCH ×4 (00:06→17:55)
[2022-09-08] MEDS: Piperacillin/Tazobactam 3.375 GM in Sodium Chloride 0.9% 100 ML IVPB SCH ×3 (04:34→20:36)
[2022-09-08] MEDS: Ondansetron PF 4 MG/2 ML Vial IVP PRN ×3 (05:49→20:40)
[2022-09-08 06:20] LABS: #Eosinphils 0.3 thou/uL (0.0-0.7); #Lymphocytes 1.3 thou/uL (1.20-3.40); #Monocytes 0.6 thou/uL (0.11-0.59); #Neutrophils 4.4 thou/uL (1.40-6.50); %Basophils 0.4 % (0.0-1.0); %Eosinophils 4.1 % (0.0-10.0); %Lymphocytes 19.8 % (21.0-51.0); %Monocytes 9.2 % (0.0-10.0); %Neutrophils 66.5 % (42.0-75.0); Hemoglobin 7.9 g/dL (14.0-18.0); Mean Corpuscular HGB CONC 31.9 g/dL (32.0-36.0); Mean Corpuscular Hemoglobin 29.5 pg (27.0-31.0); Mean Corpuscular Volume 92.2 fl (78.0-98.0); Mean Platelet Volume 7.1 fL (7.4-10.4); Platelet Count 332 10x3/uL (130-400); RBC Distribution Width 13.1 % (11.5-14.5); Red Blood Cell (RBC) Count 2.69 mill/uL (4.70-6.10); White Blood Cell (WBC) Count 6.6 10x3/uL (4.8-10.8)
[2022-09-08 06:35] LABS: Anion Gap 13 mmol/L (10-20); BUN (Urea Nitrogen) 15 mg/dL (8.4-25.7); Calc. Creatinine Clearance 143 mL/min (70-130); Calcium 8.6 mg/dL (7.8-10.44); Carbon Dioxide 26 mmol/L (22-29); Chloride 103 mmol/L (98-107); Estimated GFR 100; Glucose 144 mg/dL (70-105); Potassium 3.9 mmol/L (3.5-5.1); Sodium 138 mmol/L (136-145)
[2022-09-08 06:38] LABS: Phosphorus 3.7 mg/dL (2.3-4.7)
[2022-09-08] MEDS: Enoxaparin Sodium 40 MG/0.4 ML SYRINGE SC SCH (08:41)
[2022-09-08] MEDS: Famotidine/PF 20 mg/2ml Vial SLOW IVP SCH ×2 (08:41→20:37)
[2022-09-08] MEDS: Promethazine HCl 25 MG/ML VIAL IM PRN (09:32)
[2022-09-08] MEDS ORDERED: FENTANYL 50 MCG/ML 1 ML VIAL SLOW IVP SCH (10:30)
[2022-09-08] MEDS ORDERED: Iopamidol-370 76% 500 ML 1 ML ONE (11:14)
[2022-09-08] MEDS: HYDROmorphone/PF 10 MG in Sodium Chloride 0.9% 99 ML IVPB PRN (11:34)
[2022-09-08] MEDS: Multivitamins, Adult 10 ML, TRACE ELEMENT CONCENTRATE 1 ML, Fat Emulsion 250 ML in D15W... IV SCH (14:27)
[2022-09-09] MEDS: Ketorolac Tromethamine 30 MG/ML VIAL IVP SCH (00:10)
[2022-09-09] MEDS: Lactated Ringer's 1,000 ML IV SCH (04:00)
[2022-09-09] MEDS: Piperacillin/Tazobactam 3.375 GM in Sodium Chloride 0.9% 100 ML IVPB SCH ×3 (06:00→21:12)
[2022-09-09] MEDS: HYDROmorphone/PF 10 MG in Sodium Chloride 0.9% 99 ML IVPB PRN ×2 (07:03→23:28)
[2022-09-09] MEDS: Insulin Regular 300 UNITS/3 ML VIAL SC PRN (07:05)
[2022-09-09] MEDS: Famotidine/PF 20 mg/2ml Vial SLOW IVP SCH ×2 (09:23→21:12)
[2022-09-09] MEDS: Enoxaparin Sodium 40 MG/0.4 ML SYRINGE SC SCH (09:24)
[2022-09-09] MEDS: Multivitamins, Adult 10 ML, TRACE ELEMENT CONCENTRATE 1 ML, Fat Emulsion 250 ML in D15W... IV SCH (14:17)
[2022-09-09] MEDS: Acetaminophen 325 MG TAB PO PRN (16:20)
[2022-09-09] MEDS ORDERED: Morphine 4 MG/ML VIAL SLOW IVP SCH (18:45)
[2022-09-09] MEDS: Octreotide Acetate 50 MCG in Sodium Chloride 0.9% 50 ML IVPB SCH (21:11)
[2022-09-10] MEDS: Insulin Regular 300 UNITS/3 ML VIAL SC PRN ×2 (01:34→06:43)
[2022-09-10] MEDS: Lactated Ringer's 1,000 ML IV SCH (03:00)
[2022-09-10] MEDS: Octreotide Acetate 50 MCG in Sodium Chloride 0.9% 50 ML IVPB SCH ×3 (05:17→22:29)
[2022-09-10] MEDS: Piperacillin/Tazobactam 3.375 GM in Sodium Chloride 0.9% 100 ML IVPB SCH ×3 (05:17→20:37)
[2022-09-10] MEDS: Famotidine/PF 20 mg/2ml Vial SLOW IVP SCH ×2 (08:39→20:37)
[2022-09-10] MEDS: HYDROmorphone/PF 10 MG in Sodium Chloride 0.9% 99 ML IVPB PRN ×2 (08:39→18:22)
[2022-09-10] MEDS: Enoxaparin Sodium 40 MG/0.4 ML SYRINGE SC SCH (08:40)
[2022-09-10 09:46] LABS: #Eosinphils 0.3 thou/uL (0.0-0.7); #Lymphocytes 1.4 thou/uL (1.20-3.40); #Monocytes 0.5 thou/uL (0.11-0.59); #Neutrophils 3.7 thou/uL (1.40-6.50); %Basophils 0.5 % (0.0-1.0); %Eosinophils 4.3 % (0.0-10.0); %Lymphocytes 23.2 % (21.0-51.0); %Monocytes 9.2 % (0.0-10.0); %Neutrophils 62.8 % (42.0-75.0); Hemoglobin 8.2 g/dL (14.0-18.0); Mean Corpuscular HGB CONC 32.5 g/dL (32.0-36.0); Mean Corpuscular Hemoglobin 29.7 pg (27.0-31.0); Mean Corpuscular Volume 91.4 fl (78.0-98.0); Mean Platelet Volume 7.2 fL (7.4-10.4); Platelet Count 392 10x3/uL (130-400); Red Blood Cell (RBC) Count 2.74 mill/uL (4.70-6.10); White Blood Cell (WBC) Count 5.8 10x3/uL (4.8-10.8)
[2022-09-10 10:25] LABS: ALT (SGPT) 36 U/L (8-55); AST (SGOT) 21 U/L (5-34); Alkaline Phosphatase 73 U/L (40-110); Anion Gap 10 mmol/L (10-20); BUN (Urea Nitrogen) 14 mg/dL (8.4-25.7); Calc. Creatinine Clearance 140 mL/min (70-130); Calcium 8.6 mg/dL (7.8-10.44); Carbon Dioxide 29 mmol/L (22-29); Chloride 101 mmol/L (98-107); Estimated GFR 98; Globulin 3.3 g/dL (2.4-3.5); Glucose 136 mg/dL (70-105); Protein, Total 6.3 g/dL (6.0-8.3); Sodium 136 mmol/L (136-145)
[2022-09-10] MEDS: Multivitamins, Adult 10 ML, TRACE ELEMENT CONCENTRATE 1 ML, Fat Emulsion 250 ML in D15W... IV SCH (14:42)
[2022-09-11] MEDS: HYDROmorphone/PF 10 MG in Sodium Chloride 0.9% 99 ML IVPB PRN ×3 (03:55→19:41)
[2022-09-11] MEDS: Octreotide Acetate 50 MCG in Sodium Chloride 0.9% 50 ML IVPB SCH ×3 (05:42→21:41)
[2022-09-11] MEDS: Piperacillin/Tazobactam 3.375 GM in Sodium Chloride 0.9% 100 ML IVPB SCH ×3 (05:42→21:42)
[2022-09-11] MEDS ORDERED: fentaNYL PF 100 MCG/2 ML SYRINGE ONE (08:01)
[2022-09-11] MEDS ORDERED: HYDROmorphone 2 MG/ML VIAL ONE (08:01)
[2022-09-11] MEDS ORDERED: Ketamine 50 MG/ML (10ML VIAL) ONE (08:04)
[2022-09-11] MEDS ORDERED: Dexmedetomidine 200 MCG/2 ML VIAL ONE (08:16)
[2022-09-11] MEDS ORDERED: Dexamethasone 20 MG/5 ML VIAL ONE (08:29)
[2022-09-11] MEDS ORDERED: Succinylcholine 200 MG/10 ml SYRINGE FS ONE (08:29)
[2022-09-11] MEDS ORDERED: Rocuronium Bromide 10 MG/ML (10ML VIAL) ONE (08:29)
[2022-09-11] MEDS ORDERED: Ketorolac Tromethamine 30 MG/ML VIAL ONE (08:29)
[2022-09-11] MEDS ORDERED: Ondansetron PF 4 MG/2 ML Vial ONE (08:29)
[2022-09-11] MEDS ORDERED: PROPOFOL 200 MG/20 ML VIAL ONE (08:29)
[2022-09-11] MEDS ORDERED: Promethazine HCl 25 MG/ML VIAL IM PRN (08:58)
[2022-09-11] MEDS ORDERED: Promethazine HCl 25 MG/ML VIAL IVPB PRN (08:58)
[2022-09-11] MEDS ORDERED: Ondansetron HCl/PF 4 MG/2 ML Vial IVP PRN (08:58)
[2022-09-11] MEDS ORDERED: Piperacillin/Tazobactam 3.375 GM VIAL ONE (09:03)
[2022-09-11] MEDS ORDERED: Sodium Chloride 0.9% 100 ML ONE (09:05)
[2022-09-11] MEDS ORDERED: SUGAMMADEX SODIUM 200 MG/2 ML VIAL ONE (09:47)
[2022-09-11] MEDS ORDERED: FENTANYL 50 MCG/ML 1 ML VIAL ONE ×3 (10:25→11:19)
[2022-09-11] MEDS: Enoxaparin Sodium 40 MG/0.4 ML SYRINGE SC SCH (11:54)
[2022-09-11] MEDS: Famotidine/PF 20 mg/2ml Vial SLOW IVP SCH ×2 (12:05→21:24)
[2022-09-11] MEDS: Lactated Ringer's 1,000 ML IV SCH (12:12)
[2022-09-11] MEDS: Ondansetron PF 4 MG/2 ML Vial IVP PRN (13:49)
[2022-09-11] MEDS ORDERED: Diazepam 10 MG/2 ML SYRINGE IVP PRN (14:49)
[2022-09-11] MEDS: Multivitamins, Adult 10 ML, TRACE ELEMENT CONCENTRATE 1 ML, Fat Emulsion 250 ML in D15W... IV SCH (14:55)
[2022-09-11] MEDS: Promethazine HCl 25 MG/ML VIAL IM PRN (16:33)
[2022-09-11] MEDS: Insulin Regular 300 UNITS/3 ML VIAL SC PRN (18:41)
[2022-09-12] MEDS: Insulin Regular 300 UNITS/3 ML VIAL SC PRN ×2 (00:29→05:36)
[2022-09-12] MEDS: Promethazine HCl 25 MG/ML VIAL IM PRN ×3 (00:50→21:08)
[2022-09-12] MEDS: Piperacillin/Tazobactam 3.375 GM in Sodium Chloride 0.9% 100 ML IVPB SCH ×3 (05:22→21:08)
[2022-09-12] MEDS: Octreotide Acetate 50 MCG in Sodium Chloride 0.9% 50 ML IVPB SCH ×3 (05:24→21:34)
[2022-09-12] MEDS: Ondansetron PF 4 MG/2 ML Vial IVP PRN (05:40)
[2022-09-12] MEDS: HYDROmorphone/PF 10 MG in Sodium Chloride 0.9% 99 ML IVPB PRN ×2 (06:01→15:24)
[2022-09-12] MEDS: Famotidine/PF 20 mg/2ml Vial SLOW IVP SCH ×2 (08:43→21:09)
[2022-09-12] MEDS: Enoxaparin Sodium 40 MG/0.4 ML SYRINGE SC SCH (08:43)
[2022-09-12 09:54] LABS: #Lymphocytes 1.3 thou/uL (1.20-3.40); #Monocytes 0.6 thou/uL (0.11-0.59); #Neutrophils 5.4 thou/uL (1.40-6.50); %Basophils 0.1 % (0.0-1.0); %Eosinophils 0.5 % (0.0-10.0); %Lymphocytes 17.7 % (21.0-51.0); %Monocytes 7.9 % (0.0-10.0); %Neutrophils 73.8 % (42.0-75.0); Hemoglobin 8.4 g/dL (14.0-18.0); Mean Corpuscular HGB CONC 32.6 g/dL (32.0-36.0); Mean Corpuscular Hemoglobin 29.6 pg (27.0-31.0); Platelet Count 424 10x3/uL (130-400); RBC Distribution Width 13.2 % (11.5-14.5); Red Blood Cell (RBC) Count 2.83 mill/uL (4.70-6.10); White Blood Cell (WBC) Count 7.3 10x3/uL (4.8-10.8)
[2022-09-12 10:19] LABS: Anion Gap 11 mmol/L (10-20); BUN (Urea Nitrogen) 13 mg/dL (8.4-25.7); Calc. Creatinine Clearance 151 mL/min (70-130); Calcium 8.9 mg/dL (7.8-10.44); Carbon Dioxide 29 mmol/L (22-29); Chloride 103 mmol/L (98-107); Estimated GFR 101; Glucose 207 mg/dL (70-105); Potassium 4.4 mmol/L (3.5-5.1); Sodium 139 mmol/L (136-145)
[2022-09-12] MEDS: Pantoprazole 40 MG VIAL IVP SCH (12:38)
[2022-09-12] MEDS: Multivitamins, Adult 10 ML, TRACE ELEMENT CONCENTRATE 1 ML, Fat Emulsion 250 ML in D15W... IV SCH (14:05)
[2022-09-12] MEDS: Cepastat Lozenges 1 LOZ PO PRN (14:06)
[2022-09-12] MEDS: Ketorolac Tromethamine 30 MG/ML VIAL IVP PRN (21:09)
[2022-09-13] MEDS: Insulin Regular 300 UNITS/3 ML VIAL SC PRN ×2 (00:06→05:24)
[2022-09-13] MEDS: Octreotide Acetate 50 MCG in Sodium Chloride 0.9% 50 ML IVPB SCH ×3 (05:24→21:31)
[2022-09-13] MEDS: Piperacillin/Tazobactam 3.375 GM in Sodium Chloride 0.9% 100 ML IVPB SCH ×3 (05:24→20:33)
[2022-09-13 07:08] LABS: #Eosinphils 0.4 thou/uL (0.0-0.7); #Lymphocytes 1.8 thou/uL (1.20-3.40); #Monocytes 0.7 thou/uL (0.11-0.59); #Neutrophils 3.3 thou/uL (1.40-6.50); %Basophils 0.3 % (0.0-1.0); %Eosinophils 6.3 % (0.0-10.0); %Lymphocytes 29.5 % (21.0-51.0); %Monocytes 10.5 % (0.0-10.0); %Neutrophils 53.4 % (42.0-75.0); Mean Corpuscular HGB CONC 32.9 g/dL (32.0-36.0); Mean Corpuscular Hemoglobin 30.6 pg (27.0-31.0); Mean Platelet Volume 7.6 fL (7.4-10.4); Platelet Count 446 10x3/uL (130-400); RBC Distribution Width 13.3 % (11.5-14.5); Red Blood Cell (RBC) Count 2.63 mill/uL (4.70-6.10); White Blood Cell (WBC) Count 6.2 10x3/uL (4.8-10.8)
[2022-09-13] MEDS: Famotidine/PF 20 mg/2ml Vial SLOW IVP SCH ×2 (09:09→20:34)
[2022-09-13] MEDS: Enoxaparin Sodium 40 MG/0.4 ML SYRINGE SC SCH (09:09)
[2022-09-13] MEDS: Pantoprazole 40 MG VIAL IVP SCH (09:09)
[2022-09-13] MEDS: Ketorolac Tromethamine 30 MG/ML VIAL IVP PRN ×2 (12:56→21:31)
[2022-09-13] MEDS: Cepastat Lozenges 1 LOZ PO PRN (13:06)
[2022-09-13] MEDS: HYDROmorphone/PF 10 MG in Sodium Chloride 0.9% 99 ML IVPB PRN (13:09)
[2022-09-13] MEDS: Multivitamins, Adult 10 ML, TRACE ELEMENT CONCENTRATE 1 ML, Fat Emulsion 250 ML in D15W... IV SCH (13:14)
[2022-09-13] MEDS: Lactated Ringer's 1,000 ML IV SCH (15:11)
[2022-09-13] MEDS: Promethazine HCl 25 MG/ML VIAL IM PRN (17:28)
[2022-09-14] MEDS: Insulin Regular 300 UNITS/3 ML VIAL SC PRN (00:58)
[2022-09-14] MEDS: Ondansetron PF 4 MG/2 ML Vial IVP PRN ×2 (01:01→14:09)
[2022-09-14] MEDS: HYDROmorphone/PF 10 MG in Sodium Chloride 0.9% 99 ML IVPB PRN ×2 (03:10→17:13)
[2022-09-14] MEDS: Octreotide Acetate 50 MCG in Sodium Chloride 0.9% 50 ML IVPB SCH ×3 (05:29→21:47)
[2022-09-14] MEDS: Piperacillin/Tazobactam 3.375 GM in Sodium Chloride 0.9% 100 ML IVPB SCH ×3 (05:29→21:21)
[2022-09-14] MEDS: Enoxaparin Sodium 40 MG/0.4 ML SYRINGE SC SCH (10:13)
[2022-09-14] MEDS: Famotidine/PF 20 mg/2ml Vial SLOW IVP SCH ×2 (10:13→21:22)
[2022-09-14] MEDS: Pantoprazole 40 MG VIAL IVP SCH (10:13)
[2022-09-14] MEDS: Multivitamins, Adult 10 ML, TRACE ELEMENT CONCENTRATE 1 ML, Fat Emulsion 250 ML in D15W... IV SCH (14:11)
[2022-09-14] MEDS: Promethazine HCl 25 MG/ML VIAL IM PRN (19:57)
[2022-09-15] MEDS: Cepastat Lozenges 1 LOZ PO PRN (01:13)
[2022-09-15] MEDS: HYDROmorphone/PF 10 MG in Sodium Chloride 0.9% 99 ML IVPB PRN ×2 (04:17→12:51)
[2022-09-15] MEDS: Piperacillin/Tazobactam 3.375 GM in Sodium Chloride 0.9% 100 ML IVPB SCH ×3 (04:27→20:51)
[2022-09-15] MEDS: Octreotide Acetate 50 MCG in Sodium Chloride 0.9% 50 ML IVPB SCH ×3 (06:12→20:59)
[2022-09-15] MEDS: Enoxaparin Sodium 40 MG/0.4 ML SYRINGE SC SCH (08:35)
[2022-09-15] MEDS: Famotidine/PF 20 mg/2ml Vial SLOW IVP SCH ×2 (08:35→20:48)
[2022-09-15] MEDS: Pantoprazole 40 MG VIAL IVP SCH (08:36)
[2022-09-15] MEDS ORDERED: Naloxone HCl 0.4 mg/ml Vial IV PRN (11:45)
[2022-09-15] MEDS ORDERED: diphenhydrAMINE 50 MG/ML VIAL IM/IV PRN (11:45)
[2022-09-15] MEDS ORDERED: Zolpidem Tartrate 5 MG TAB PO PRN (11:45)
[2022-09-15] MEDS ORDERED: diphenhydrAMINE 25 MG CAP PO PRN (11:45)
[2022-09-15] MEDS ORDERED: Promethazine HCl 25 MG/ML VIAL IM PRN (11:45)
[2022-09-15] MEDS: Multivitamins, Adult 10 ML, TRACE ELEMENT CONCENTRATE 1 ML, Fat Emulsion 250 ML in D15W... IV SCH (14:21)
[2022-09-15] MEDS: Phenazopyridine HCl 100 MG TAB PO SCH (18:11)
[2022-09-15] MEDS: Ondansetron PF 4 MG/2 ML Vial IVP PRN (20:46)
[2022-09-16] MEDS: HYDROmorphone/PF 10 MG in Sodium Chloride 0.9% 99 ML IVPB PRN (01:43)
[2022-09-16] MEDS: Piperacillin/Tazobactam 3.375 GM in Sodium Chloride 0.9% 100 ML IVPB SCH ×3 (05:36→21:02)
[2022-09-16] MEDS: Octreotide Acetate 50 MCG in Sodium Chloride 0.9% 50 ML IVPB SCH ×3 (05:36→21:02)
[2022-09-16] MEDS: Enoxaparin Sodium 40 MG/0.4 ML SYRINGE SC SCH (09:04)
[2022-09-16] MEDS: Oxybutynin ER 5 MG TAB PO SCH (09:05)
[2022-09-16] MEDS: Phenazopyridine HCl 100 MG TAB PO SCH ×3 (09:05→17:55)
[2022-09-16] MEDS: Famotidine/PF 20 mg/2ml Vial SLOW IVP SCH ×2 (09:06→21:01)
[2022-09-16] MEDS: Pantoprazole 40 MG VIAL IVP SCH (09:06)
[2022-09-16] MEDS: Ondansetron PF 4 MG/2 ML Vial IVP PRN (10:42)
[2022-09-16] MEDS: Acetaminophen 325 MG TAB PO PRN (10:42)
[2022-09-16] MEDS ORDERED: fentaNYL 50 mcg/hour Patch TD SCH (12:00)
[2022-09-16] MEDS: Promethazine 25 MG TAB PO PRN ×2 (13:07→18:52)
[2022-09-16] MEDS: Multivitamins, Adult 10 ML, TRACE ELEMENT CONCENTRATE 1 ML, Fat Emulsion 250 ML in D15W... IV SCH (13:59)
[2022-09-17] MEDS: Promethazine 25 MG TAB PO PRN ×2 (03:37→13:51)
[2022-09-17 04:46] LABS: #Eosinphils 0.4 thou/uL (0.0-0.7); #Monocytes 0.5 thou/uL (0.11-0.59); %Basophils 0.3 % (0.0-1.0); %Lymphocytes 28.6 % (21.0-51.0); %Monocytes 7.2 % (0.0-10.0); %Neutrophils 57.9 % (42.0-75.0); Hemoglobin 9.1 g/dL (14.0-18.0); Mean Corpuscular HGB CONC 30.6 g/dL (32.0-36.0); Mean Corpuscular Hemoglobin 27.9 pg (27.0-31.0); Mean Platelet Volume 7.4 fL (7.4-10.4); Platelet Count 537 10x3/uL (130-400); RBC Distribution Width 14.2 % (11.5-14.5); Red Blood Cell (RBC) Count 3.26 mill/uL (4.70-6.10); White Blood Cell (WBC) Count 6.8 10x3/uL (4.8-10.8)
[2022-09-17 05:10] LABS: Anion Gap 12 mmol/L (10-20); BUN (Urea Nitrogen) 15 mg/dL (8.4-25.7); Calc. Creatinine Clearance 125 mL/min (70-130); Calcium 8.8 mg/dL (7.8-10.44); Carbon Dioxide 28 mmol/L (22-29); Chloride 101 mmol/L (98-107); Estimated GFR 85; Glucose 156 mg/dL (70-105); Magnesium 2.2 mg/dL (1.6-2.6); Phosphorus 3.2 mg/dL (2.3-4.7); Potassium 3.9 mmol/L (3.5-5.1); Sodium 137 mmol/L (136-145)
[2022-09-17] MEDS: Piperacillin/Tazobactam 3.375 GM in Sodium Chloride 0.9% 100 ML IVPB SCH ×3 (05:28→21:07)
[2022-09-17] MEDS: Octreotide Acetate 50 MCG in Sodium Chloride 0.9% 50 ML IVPB SCH ×3 (05:29→21:15)
[2022-09-17] MEDS ORDERED: HYDROmorphone 0.5 MG/0.5 ML SYRINGE SLOW IVP SCH ×2 (05:45→11:05)
[2022-09-17] MEDS ORDERED: FENTANYL 50 MCG/ML 1 ML VIAL SLOW IVP SCH (06:00)
[2022-09-17] MEDS: Famotidine/PF 20 mg/2ml Vial SLOW IVP SCH ×2 (09:01→21:07)
[2022-09-17] MEDS: Pantoprazole 40 MG VIAL IVP SCH (09:50)
[2022-09-17] MEDS: Enoxaparin Sodium 40 MG/0.4 ML SYRINGE SC SCH (09:50)
[2022-09-17] MEDS: Ondansetron PF 4 MG/2 ML Vial IVP PRN (09:50)
[2022-09-17] MEDS ORDERED: fentaNYL 75 mcg/hour Patch TD SCH (11:30)
[2022-09-17] MEDS: Phenazopyridine HCl 100 MG TAB PO SCH ×3 (11:41→18:06)
[2022-09-17] MEDS: Multivitamins, Adult 10 ML, TRACE ELEMENT CONCENTRATE 1 ML, Fat Emulsion 250 ML in D15W... IV SCH (13:51)
[2022-09-17] MEDS ORDERED: Promethazine HCl 25 MG/ML VIAL IM PRN (15:42)
[2022-09-17] MEDS ORDERED: Ondansetron PF 4 MG/2 ML Vial IVP PRN (15:42)
[2022-09-17] MEDS ORDERED: HYDROmorphone 10 mg/100 ml CADD IVPB PRN (15:42)
[2022-09-17] MEDS ORDERED: Zolpidem Tartrate 5 MG TAB PO PRN (15:42)
[2022-09-17] MEDS ORDERED: Naloxone HCl 0.4 mg/ml Vial IV PRN (15:42)
[2022-09-17] MEDS ORDERED: diphenhydrAMINE 50 MG/ML VIAL IM PRN (15:42)
[2022-09-17] MEDS ORDERED: diphenhydrAMINE 25 MG CAP PO PRN (15:42)
[2022-09-17] MEDS ORDERED: Communication Order-Pharmacy FS SCH (15:45)
[2022-09-17] MEDS: Promethazine HCl 12.5 MG in Sodium Chloride 0.9% 50 ML IVPB PRN (16:13)
[2022-09-17 16:16] LABS: Troponin I Less than 0.010 ng/mL (< 0.028)
[2022-09-17] MEDS: HYDROmorphone 10 mg/100 ml CADD IVPB PRN (16:53)
[2022-09-17] MEDS: Oxybutynin ER 5 MG TAB PO SCH (18:06)
[2022-09-18] MEDS: Piperacillin/Tazobactam 3.375 GM in Sodium Chloride 0.9% 100 ML IVPB SCH ×3 (05:18→21:02)
[2022-09-18] MEDS: Octreotide Acetate 50 MCG in Sodium Chloride 0.9% 50 ML IVPB SCH ×2 (05:19→07:26)
[2022-09-18] MEDS: Insulin Regular 300 UNITS/3 ML VIAL SC PRN (06:40)
[2022-09-18] MEDS: HYDROmorphone 10 mg/100 ml CADD IVPB PRN (07:27)
[2022-09-18] MEDS: Enoxaparin Sodium 40 MG/0.4 ML SYRINGE SC SCH (08:45)
[2022-09-18] MEDS: Pantoprazole 40 MG VIAL IVP SCH (08:45)
[2022-09-18] MEDS: Famotidine/PF 20 mg/2ml Vial SLOW IVP SCH ×2 (08:45→21:03)
[2022-09-18] MEDS: Oxybutynin ER 5 MG TAB PO SCH ×2 (08:47→13:54)
[2022-09-18] MEDS: Phenazopyridine HCl 100 MG TAB PO SCH ×4 (08:47→17:47)
[2022-09-18] MEDS: Promethazine HCl 12.5 MG in Sodium Chloride 0.9% 50 ML IVPB PRN ×2 (13:17→19:20)
[2022-09-18] MEDS: Multivitamins, Adult 10 ML, TRACE ELEMENT CONCENTRATE 1 ML, Fat Emulsion 250 ML in D15W... IV SCH (14:09)
[2022-09-18] MEDS: Venlafaxine HCl XR 150 MG CAP PO SCH (21:03)
[2022-09-18] MEDS: diphenhydrAMINE 50 MG/ML VIAL IVP PRN (21:13)
[2022-09-19] MEDS: Lactated Ringer's 1,000 ML IV SCH (05:20)
[2022-09-19] MEDS: Piperacillin/Tazobactam 3.375 GM in Sodium Chloride 0.9% 100 ML IVPB SCH ×3 (05:20→20:37)
[2022-09-19] MEDS: HYDROmorphone 10 mg/100 ml CADD IVPB PRN (06:57)
[2022-09-19] MEDS: Promethazine HCl 12.5 MG in Sodium Chloride 0.9% 50 ML IVPB PRN ×3 (09:02→23:22)
[2022-09-19] MEDS: Famotidine/PF 20 mg/2ml Vial SLOW IVP SCH ×2 (09:02→20:37)
[2022-09-19] MEDS: Pantoprazole 40 MG VIAL IVP SCH (09:03)
[2022-09-19] MEDS: Enoxaparin Sodium 40 MG/0.4 ML SYRINGE SC SCH (09:03)
[2022-09-19] MEDS: Oxybutynin ER 5 MG TAB PO SCH (09:55)
[2022-09-19] MEDS: Phenazopyridine HCl 100 MG TAB PO SCH ×3 (09:55→17:24)
[2022-09-19] MEDS: Multivitamins, Adult 10 ML, TRACE ELEMENT CONCENTRATE 1 ML, Fat Emulsion 250 ML in D15W... IV SCH (14:50)
[2022-09-19] MEDS: Venlafaxine HCl XR 150 MG CAP PO SCH (20:38)
[2022-09-20] MEDS: Piperacillin/Tazobactam 3.375 GM in Sodium Chloride 0.9% 100 ML IVPB SCH ×3 (05:17→21:23)
[2022-09-20] MEDS: HYDROmorphone 10 mg/100 ml CADD IVPB PRN (08:13)
[2022-09-20] MEDS: Enoxaparin Sodium 40 MG/0.4 ML SYRINGE SC SCH (08:18)
[2022-09-20] MEDS: Famotidine/PF 20 mg/2ml Vial SLOW IVP SCH ×3 (08:21→21:23)
[2022-09-20] MEDS: Promethazine HCl 12.5 MG in Sodium Chloride 0.9% 50 ML IVPB PRN ×2 (10:01→21:24)
[2022-09-20] MEDS: Oxybutynin ER 5 MG TAB PO SCH (11:15)
[2022-09-20] MEDS: Phenazopyridine HCl 100 MG TAB PO SCH ×3 (11:15→21:22)
[2022-09-20] MEDS: Pantoprazole 40 MG VIAL IVP SCH (11:17)
[2022-09-20] MEDS: fentaNYL 100 mcg/hour Patch TD SCH (13:33)
[2022-09-20] MEDS: Multivitamins, Adult 10 ML, TRACE ELEMENT CONCENTRATE 1 ML, Fat Emulsion 250 ML in D15W... IV SCH (14:38)
[2022-09-20] MEDS: Venlafaxine HCl XR 150 MG CAP PO SCH (21:42)
[2022-09-21] MEDS: HYDROmorphone 10 mg/100 ml CADD IVPB PRN (01:12)
[2022-09-21] MEDS: Piperacillin/Tazobactam 3.375 GM in Sodium Chloride 0.9% 100 ML IVPB SCH ×3 (05:58→21:53)
[2022-09-21 09:23] LABS: #Eosinphils 0.3 thou/uL (0.0-0.7); #Lymphocytes 1.6 thou/uL (1.20-3.40); #Monocytes 0.3 thou/uL (0.11-0.59); #Neutrophils 2.2 thou/uL (1.40-6.50); %Basophils 0.2 % (0.0-1.0); %Eosinophils 7.5 % (0.0-10.0); %Lymphocytes 34.9 % (21.0-51.0); %Monocytes 6.9 % (0.0-10.0); %Neutrophils 50.5 % (42.0-75.0); Hemoglobin 9.3 g/dL (14.0-18.0); Mean Corpuscular HGB CONC 32.2 g/dL (32.0-36.0); Mean Corpuscular Hemoglobin 29.1 pg (27.0-31.0); Mean Corpuscular Volume 90.1 fl (78.0-98.0); Mean Platelet Volume 7.1 fL (7.4-10.4); Platelet Count 380 10x3/uL (130-400); RBC Distribution Width 14.5 % (11.5-14.5); Red Blood Cell (RBC) Count 3.18 mill/uL (4.70-6.10); White Blood Cell (WBC) Count 4.4 10x3/uL (4.8-10.8)
[2022-09-21 09:24] LABS: ALT (SGPT) 25 U/L (8-55); AST (SGOT) 18 U/L (5-34); Albumin 3.3 g/dL (3.5-5.0); Alkaline Phosphatase 104 U/L (40-110); Anion Gap 10 mmol/L (10-20); BUN (Urea Nitrogen) 15 mg/dL (8.4-25.7); Bilirubin, Total 0.5 mg/dL (0.2-1.2); Calc. Creatinine Clearance 125 mL/min (70-130); Carbon Dioxide 29 mmol/L (22-29); Chloride 103 mmol/L (98-107); Estimated GFR 93; Globulin 3.6 g/dL (2.4-3.5); Glucose 118 mg/dL (70-105); Magnesium 1.9 mg/dL (1.6-2.6); Potassium 3.9 mmol/L (3.5-5.1); Protein, Total 6.9 g/dL (6.0-8.3); Sodium 138 mmol/L (136-145); Triglycerides 125 mg/dL (Less than 150)
[2022-09-21] MEDS: Enoxaparin Sodium 40 MG/0.4 ML SYRINGE SC SCH (09:47)
[2022-09-21] MEDS: Famotidine/PF 20 mg/2ml Vial SLOW IVP SCH ×2 (09:47→21:52)
[2022-09-21] MEDS: Pantoprazole 40 MG VIAL IVP SCH (09:48)
[2022-09-21] MEDS: Oxybutynin ER 5 MG TAB PO SCH (09:48)
[2022-09-21] MEDS: Phenazopyridine HCl 100 MG TAB PO SCH ×4 (09:51→17:55)
[2022-09-21] MEDS: Promethazine HCl 12.5 MG in Sodium Chloride 0.9% 50 ML IVPB PRN (11:08)
[2022-09-21 11:13] VITALS: BMI 35.7
[2022-09-21] MEDS: Multivitamins, Adult 10 ML, TRACE ELEMENT CONCENTRATE 1 ML, Fat Emulsion 250 ML in D15W... IV SCH (14:52)
[2022-09-21] MEDS: Venlafaxine HCl XR 150 MG CAP PO SCH (21:53)
[2022-09-22] MEDS: Piperacillin/Tazobactam 3.375 GM in Sodium Chloride 0.9% 100 ML IVPB SCH ×3 (06:00→20:53)
[2022-09-22] MEDS: Lactated Ringer's 1,000 ML IV SCH (06:05)
[2022-09-22] MEDS: Enoxaparin Sodium 40 MG/0.4 ML SYRINGE SC SCH (08:59)
[2022-09-22] MEDS: Famotidine/PF 20 mg/2ml Vial SLOW IVP SCH ×2 (08:59→20:54)
[2022-09-22] MEDS: Pantoprazole 40 MG VIAL IVP SCH (09:00)
[2022-09-22] MEDS: Promethazine HCl 12.5 MG in Sodium Chloride 0.9% 50 ML IVPB PRN ×2 (09:46→18:12)
[2022-09-22] MEDS: Phenazopyridine HCl 100 MG TAB PO SCH ×3 (10:24→18:12)
[2022-09-22] MEDS: Oxybutynin ER 5 MG TAB PO SCH (10:24)
[2022-09-22] MEDS: Multivitamins, Adult 10 ML, TRACE ELEMENT CONCENTRATE 1 ML, Fat Emulsion 250 ML in D15W... IV SCH (14:35)
[2022-09-22] MEDS: Venlafaxine HCl XR 150 MG CAP PO SCH (20:53)
[2022-09-22] MEDS: diphenhydrAMINE 50 MG/ML VIAL IVP PRN (21:00)
[2022-09-23] MEDS: Promethazine HCl 12.5 MG in Sodium Chloride 0.9% 50 ML IVPB PRN ×3 (00:15→17:42)
[2022-09-23] MEDS: Piperacillin/Tazobactam 3.375 GM in Sodium Chloride 0.9% 100 ML IVPB SCH ×3 (05:23→20:33)
[2022-09-23] MEDS: Enoxaparin Sodium 40 MG/0.4 ML SYRINGE SC SCH (08:57)
[2022-09-23] MEDS: Pantoprazole 40 MG VIAL IVP SCH (08:57)
[2022-09-23] MEDS: Famotidine/PF 20 mg/2ml Vial SLOW IVP SCH ×2 (08:57→20:36)
[2022-09-23] MEDS: Phenazopyridine HCl 100 MG TAB PO SCH ×3 (09:55→17:42)
[2022-09-23] MEDS: Oxybutynin ER 5 MG TAB PO SCH (09:55)
[2022-09-23] MEDS: fentaNYL 100 mcg/hour Patch TD SCH (13:44)
[2022-09-23] MEDS: Multivitamins, Adult 10 ML, TRACE ELEMENT CONCENTRATE 1 ML, Fat Emulsion 250 ML in D15W... IV SCH (14:40)
[2022-09-23] MEDS: Venlafaxine HCl XR 150 MG CAP PO SCH (20:36)
[2022-09-24] MEDS: Promethazine HCl 12.5 MG in Sodium Chloride 0.9% 50 ML IVPB PRN (02:59)
[2022-09-24] MEDS: Piperacillin/Tazobactam 3.375 GM in Sodium Chloride 0.9% 100 ML IVPB SCH ×3 (04:40→20:21)
[2022-09-24] MEDS: Oxybutynin ER 5 MG TAB PO SCH (09:02)
[2022-09-24] MEDS: Phenazopyridine HCl 100 MG TAB PO SCH ×3 (09:02→18:39)
[2022-09-24] MEDS: Enoxaparin Sodium 40 MG/0.4 ML SYRINGE SC SCH (09:03)
[2022-09-24] MEDS: Famotidine/PF 20 mg/2ml Vial SLOW IVP SCH ×2 (09:03→20:20)
[2022-09-24] MEDS: Pantoprazole 40 MG VIAL IVP SCH (09:04)
[2022-09-24] MEDS: Multivitamins, Adult 10 ML, TRACE ELEMENT CONCENTRATE 1 ML, Fat Emulsion 250 ML in D15W... IV SCH (14:20)
[2022-09-24] MEDS: Venlafaxine HCl XR 150 MG CAP PO SCH (20:22)
[2022-09-24] MEDS: diphenhydrAMINE 50 MG/ML VIAL IVP PRN (22:52)
[2022-09-25] MEDS: Piperacillin/Tazobactam 3.375 GM in Sodium Chloride 0.9% 100 ML IVPB SCH ×3 (04:53→20:55)
[2022-09-25] MEDS: Phenazopyridine HCl 100 MG TAB PO SCH ×3 (09:07→18:14)
[2022-09-25] MEDS: Oxybutynin ER 5 MG TAB PO SCH (09:07)
[2022-09-25] MEDS: Famotidine/PF 20 mg/2ml Vial SLOW IVP SCH ×2 (09:07→20:56)
[2022-09-25] MEDS: Enoxaparin Sodium 40 MG/0.4 ML SYRINGE SC SCH (09:07)
[2022-09-25] MEDS: Pantoprazole 40 MG VIAL IVP SCH (09:08)
[2022-09-25] MEDS: Hydrocodone-Acetamin 15 ML UDCUP PO PRN (11:28)
[2022-09-25] MEDS: Promethazine HCl 12.5 MG in Sodium Chloride 0.9% 50 ML IVPB PRN ×2 (11:30→19:18)
[2022-09-25] MEDS: Multivitamins, Adult 10 ML, TRACE ELEMENT CONCENTRATE 1 ML, Fat Emulsion 250 ML in D15W... IV SCH (14:24)
[2022-09-25] MEDS: diphenhydrAMINE 50 MG/ML VIAL IVP PRN (14:24)
[2022-09-25] MEDS: Venlafaxine HCl XR 150 MG CAP PO SCH (21:43)
[2022-09-26] MEDS: Promethazine HCl 12.5 MG in Sodium Chloride 0.9% 50 ML IVPB PRN ×3 (01:53→20:56)
[2022-09-26] MEDS: Lactated Ringer's 1,000 ML IV SCH (04:32)
[2022-09-26] MEDS: Piperacillin/Tazobactam 3.375 GM in Sodium Chloride 0.9% 100 ML IVPB SCH ×3 (04:32→19:58)
[2022-09-26] MEDS: Phenazopyridine HCl 100 MG TAB PO SCH ×3 (10:29→18:10)
[2022-09-26] MEDS: Oxybutynin ER 5 MG TAB PO SCH (10:29)
[2022-09-26] MEDS: Enoxaparin Sodium 40 MG/0.4 ML SYRINGE SC SCH (10:29)
[2022-09-26] MEDS: Famotidine/PF 20 mg/2ml Vial SLOW IVP SCH ×2 (10:30→19:56)
[2022-09-26] MEDS: Pantoprazole 40 MG VIAL IVP SCH (10:30)
[2022-09-26] MEDS: Hydrocodone-Acetamin 15 ML UDCUP PO PRN (10:30)
[2022-09-26] MEDS: fentaNYL 100 mcg/hour Patch TD SCH (12:14)
[2022-09-26 12:41] LABS: #Basophils 0.1 thou/uL (0.0-0.2); #Eosinphils 0.4 thou/uL (0.0-0.7); #Lymphocytes 1.9 thou/uL (1.20-3.40); #Monocytes 0.3 thou/uL (0.11-0.59); #Neutrophils 2.4 thou/uL (1.40-6.50); %Basophils 1.9 % (0.0-1.0); %Eosinophils 8.3 % (0.0-10.0); %Lymphocytes 36.2 % (21.0-51.0); %Monocytes 6.3 % (0.0-10.0); %Neutrophils 47.2 % (42.0-75.0); Hemoglobin 11.3 g/dL (14.0-18.0); Mean Corpuscular Hemoglobin 28.5 pg (27.0-31.0); Mean Corpuscular Volume 89.2 fl (78.0-98.0); Mean Platelet Volume 7.5 fL (7.4-10.4); Platelet Count 278 10x3/uL (130-400); RBC Distribution Width 14.7 % (11.5-14.5); Red Blood Cell (RBC) Count 3.94 mill/uL (4.70-6.10); White Blood Cell (WBC) Count 5.1 10x3/uL (4.8-10.8)
[2022-09-26 12:56] LABS: ALT (SGPT) 39 U/L (8-55); AST (SGOT) 24 U/L (5-34); Albumin 3.8 g/dL (3.5-5.0); Alkaline Phosphatase 120 U/L (40-110); Anion Gap 11 mmol/L (10-20); BUN (Urea Nitrogen) 15 mg/dL (8.4-25.7); Bilirubin, Total 0.6 mg/dL (0.2-1.2); Calc. Creatinine Clearance 122 mL/min (70-130); Calcium 9.4 mg/dL (7.8-10.44); Carbon Dioxide 28 mmol/L (22-29); Chloride 103 mmol/L (98-107); Estimated GFR 90; Globulin 3.7 g/dL (2.4-3.5); Glucose 106 mg/dL (70-105); Phosphorus 3.3 mg/dL (2.3-4.7); Potassium 4.2 mmol/L (3.5-5.1); Protein, Total 7.5 g/dL (6.0-8.3); Sodium 138 mmol/L (136-145); Triglycerides 138 mg/dL (Less than 150)
[2022-09-26] MEDS: Multivitamins, Adult 10 ML, TRACE ELEMENT CONCENTRATE 1 ML, Fat Emulsion 250 ML in D15W... IV SCH (14:21)
[2022-09-26] MEDS: Venlafaxine HCl XR 150 MG CAP PO SCH (19:58)
[2022-09-26] MEDS: diphenhydrAMINE 50 MG/ML VIAL IVP PRN (23:05)
[2022-09-27] MEDS: Piperacillin/Tazobactam 3.375 GM in Sodium Chloride 0.9% 100 ML IVPB SCH ×2 (04:17→12:54)
[2022-09-27] MEDS: Promethazine HCl 12.5 MG in Sodium Chloride 0.9% 50 ML IVPB PRN (04:17)
[2022-09-27 08:33] VITALS: TEMP 97.2
[2022-09-27] MEDS: Oxybutynin ER 5 MG TAB PO SCH (08:46)
[2022-09-27] MEDS: Enoxaparin Sodium 40 MG/0.4 ML SYRINGE SC SCH (08:46)
[2022-09-27] MEDS: Famotidine/PF 20 mg/2ml Vial SLOW IVP SCH (08:46)
[2022-09-27] MEDS: Pantoprazole 40 MG VIAL IVP SCH (08:47)
[2022-09-27] MEDS: Phenazopyridine HCl 100 MG TAB PO SCH ×2 (08:50→12:59)
[2022-09-27 12:01] VITALS: BP 94/64
[2022-09-27] MEDS ORDERED: diphenhydrAMINE 25 MG CAP PO PRN (13:44)
[2022-09-27] MEDS: Multivitamins, Adult 10 ML, TRACE ELEMENT CONCENTRATE 1 ML, Fat Emulsion 250 ML in D15W... IV SCH (15:40)
[2022-09-27] MEDS: Hydrocodone-Acetamin 15 ML UDCUP PO PRN (15:42)
== END 2022-09-27 16:15 | disposition home health service (06) | DRG 329 ==
LOC: ERS 04:31 → SJJU 06:55
PROVIDERS: ADMIT Surgery; ATTEND Hospitalist
PROC: 02HV33Z Insertion of Infusion Device into Superior Vena Cava, Percutaneous Approach (ICD-10-PCS; 2022-09-06)
PROC: B548ZZA Ultrasonography of Superior Vena Cava, Guidance (ICD-10-PCS; 2022-09-06)
PROC: 3E0436Z Introduction of Nutritional Substance into Central Vein, Percutaneous Approach (ICD-10-PCS; 2022-09-06)
PROC: 0D9670Z Drainage of Stomach with Drainage Device, Via Natural or Artificial Opening (ICD-10-PCS; 2022-09-06)
PROC: 0DQ80ZZ Repair Small Intestine, Open Approach (ICD-10-PCS; principal; 2022-09-11)
PROC: 0W9G0ZZ Drainage of Peritoneal Cavity, Open Approach (ICD-10-PCS; 2022-09-11)
PROC: 0DB80ZZ Excision of Small Intestine, Open Approach (ICD-10-PCS; 2022-09-11)
DX: K63.2 Fistula of intestine (principal); K65.1 Peritoneal abscess; Z20.822 Contact with and (suspected) exposure to COVID-19; E11.9 Type 2 diabetes mellitus without complications; J45.909 Unspecified asthma, uncomplicated; K58.9 Irritable bowel syndrome, unspecified; H81.09 Meniere's disease, unspecified ear; E86.0 Dehydration; G43.909 Migraine, unspecified, not intractable, without status migrainosus; E66.01 Morbid (severe) obesity due to excess calories; N40.0 Benign prostatic hyperplasia without lower urinary tract symptoms; I25.10 Atherosclerotic heart disease of native coronary artery without angina pectoris; M54.9 Dorsalgia, unspecified; G89.29 Other chronic pain; F32.A Depression, unspecified; G47.33 Obstructive sleep apnea (adult) (pediatric); R00.1 Bradycardia, unspecified; D64.9 Anemia, unspecified; N35.919 Unspecified urethral stricture, male, unspecified site; Z98.890 Other specified postprocedural states; Z90.09 Acquired absence of other part of head and neck; Z79.899 Other long term (current) drug therapy; Z87.891 Personal history of nicotine dependence; Z90.49 Acquired absence of other specified parts of digestive tract; Z68.35 Body mass index [BMI] 35.0-35.9, adult
CPT/HCPCS: 36415; 36416; 36569; 71045; 74018; 74177; 80048; 80053; 80061; 81003; 81015; 83605; 83690; 83735; 84100; 84134; 84478; 84484; 85025; 85610; 85730; 86850; 86900; 86901; 87040; 87086; 90471; 90686; 93005; 93010; 93306; 96365; 96366; 96367; 96368; 96375; 97139; C1751; C9113; G0008; J1100; J1170; J1200; J1644; J1650; J1815; J1885; J2001; J2270; J2354; J2405; J2543; J2550; J2704; J3010; J3360; J3370; J3370-JW; J3490; J7120; Q0169; Q9967; S0028

== ENCOUNTER 2022-10-20 10:57 | Outpatient (CLI) | payer BC ==
[2022-10-20] MEDS ORDERED: Iopamidol-370 76% 500 ML 1 ML ONE (12:55)
== END 2022-10-20 10:58 | disposition home or self-care (01) ==
LOC: BICCT 10:57
PROVIDERS: ATTEND Surgery
DX: K65.1 Peritoneal abscess (principal); Z98.890 Other specified postprocedural states
CPT/HCPCS: 74177; Q9967

== ENCOUNTER 2022-11-19 11:45 | Emergency (ER) | payer BC, MEDICARE ==
[2022-11-19] MEDS ORDERED: Ondansetron PF 4 MG/2 ML Vial ONE (13:25)
[2022-11-19] MEDS ORDERED: Ketorolac Tromethamine 30 MG/ML VIAL ONE (13:25)
[2022-11-19 14:07] LABS: #Eosinphils 0.2 thou/uL (0.0-0.7); #Lymphocytes 1.8 thou/uL (1.20-3.40); #Monocytes 0.5 thou/uL (0.11-0.59); #Neutrophils 2.7 thou/uL (1.40-6.50); %Basophils 0.5 % (0.0-1.0); %Eosinophils 4.2 % (0.0-10.0); %Lymphocytes 34.5 % (21.0-51.0); %Monocytes 9.3 % (0.0-10.0); %Neutrophils 51.5 % (42.0-75.0); Hemoglobin 12.8 g/dL (14.0-18.0); Mean Corpuscular Hemoglobin 28.6 pg (27.0-31.0); Mean Corpuscular Volume 86.7 fl (78.0-98.0); Mean Platelet Volume 8.2 fL (7.4-10.4); Platelet Count 236 10x3/uL (130-400); Red Blood Cell (RBC) Count 4.48 mill/uL (4.70-6.10); White Blood Cell (WBC) Count 5.3 10x3/uL (4.8-10.8)
[2022-11-19 14:25] LABS: Bilirubin Negative (Negative); Blood, Urine Negative (Negative); Clarity Clear (Clear); Glucose, Urine (Dipstick) Normal (Negative); Ketone, Urine Negative (Negative); Leukocyte Negative Leu/uL (Negative); Nitrite Negative (Negative); Protein, Urine (Dipstick) 10 mg/dL (Neg-Trace); Specific Gravity, Urine 1.026 (1.002-1.036); Urobilinogen Normal mg/dL (Less than 2)
[2022-11-19 14:28] LABS: ALT (SGPT) 20 U/L (8-55); AST (SGOT) 30 U/L (5-34); Albumin 3.8 g/dL (3.5-5.0); Alkaline Phosphatase 91 U/L (40-110); Anion Gap 15 mmol/L (10-20); BUN (Urea Nitrogen) 11 mg/dL (8.4-25.7); Bilirubin, Total 0.4 mg/dL (0.2-1.2); Calc. Creatinine Clearance 0 mL/min (70-130); Calcium 9.2 mg/dL (7.8-10.44); Carbon Dioxide 24 mmol/L (22-29); Chloride 100 mmol/L (98-107); Estimated GFR 102; Globulin 3.8 g/dL (2.4-3.5); Glucose 128 mg/dL (70-105); Lipase 38 U/L (8-78); Potassium 4.1 mmol/L (3.5-5.1); Protein, Total 7.6 g/dL (6.0-8.3); Sodium 135 mmol/L (136-145)
[2022-11-19] MEDS ORDERED: Morphine 4 MG/ML VIAL ONE (15:17)
[2022-11-19] MEDS ORDERED: Iopamidol-370 76% 500 ML 1 ML ONE (15:21)
== END 2022-11-19 16:09 | disposition home or self-care (01) ==
LOC: ERS 11:45
DX: R10.9 Unspecified abdominal pain (principal); E11.9 Type 2 diabetes mellitus without complications; Z87.891 Personal history of nicotine dependence; Z79.899 Other long term (current) drug therapy
CPT/HCPCS: 36415; 74177; 80053; 81003; 83605; 83690; 85025; 87040; 96374; 96375; J1885; J2270; J2405

== ENCOUNTER 2022-12-17 14:11 | Outpatient (CLI) | payer BC, MEDICARE | END 2022-12-17 14:12 | disposition home or self-care (01) | LOC: LABBT 14:11 | PROVIDERS: ATTEND Orthopaedic Surgery Hand Surgery | DX: Z01.818 Encounter for other preprocedural examination (principal); M65.332 Trigger finger, left middle finger; M65.331 Trigger finger, right middle finger; M65.342 Trigger finger, left ring finger; M65.341 Trigger finger, right ring finger | CPT/HCPCS: 93005; 93010 ==

== ENCOUNTER 2022-12-21 08:02 | Day surgery (SDC) | payer BC ==
[2022-12-17 13:34] VITALS: BMI 37.7
[2022-12-21] MEDS ORDERED: Neomycin-Polymyxin 1 ML AMP ONE (09:17)
[2022-12-21] MEDS ORDERED: Bupivacaine PF 0.5% 30 ML VIAL ONE (09:17)
[2022-12-21] MEDS ORDERED: Bacitracin Zinc Ointment 30 gm TUBE ONE (09:17)
[2022-12-21] MEDS ORDERED: Betamet Acet/Betamet Na Ph 30 MG/5 ML VIAL ONE (09:17)
[2022-12-21] MEDS ORDERED: Morphine 4 MG/ML VIAL ONE (09:23)
[2022-12-21] MEDS ORDERED: fentaNYL PF 100 MCG/2 ML SYRINGE ONE (11:10)
[2022-12-21] MEDS ORDERED: Sodium Chloride 0.9% 100 ML ONE (11:18)
[2022-12-21] MEDS ORDERED: CEFAZOLIN 2 GM VIAL ONE (11:18)
[2022-12-21] MEDS ORDERED: PROPOFOL 200 MG/20 ML VIAL ONE (11:35)
[2022-12-21] MEDS ORDERED: Lidocaine 1% PF 5 ML VIAL ONE (11:35)
== END 2022-12-21 14:38 | disposition home or self-care (01) ==
LOC: SDC 08:02
PROVIDERS: ATTEND Orthopaedic Surgery Hand Surgery
PROC: 0LN70ZZ Release Right Hand Tendon, Open Approach (ICD-10-PCS; principal; 2022-12-21)
PROC: 0LN80ZZ Release Left Hand Tendon, Open Approach (ICD-10-PCS; principal; 2022-12-21)
DX: M65.331 Trigger finger, right middle finger (principal); M65.332 Trigger finger, left middle finger; M65.341 Trigger finger, right ring finger; M65.342 Trigger finger, left ring finger; G47.33 Obstructive sleep apnea (adult) (pediatric); E11.9 Type 2 diabetes mellitus without complications; E78.00 Pure hypercholesterolemia, unspecified; Z87.891 Personal history of nicotine dependence; Z79.85 Long-term (current) use of injectable non-insulin antidiabetic drugs; Z79.890 Hormone replacement therapy; Z79.899 Other long term (current) drug therapy
CPT/HCPCS: 36416; J0702; J2270; J2704; J3490; S0020

== ENCOUNTER 2023-01-05 10:20 | Outpatient (CLI) | payer BC | END 2023-01-05 10:21 | disposition home or self-care (01) | LOC: BICCT 10:20 | PROVIDERS: ATTEND Surgery | DX: K63.2 Fistula of intestine (principal); Z98.890 Other specified postprocedural states | CPT/HCPCS: 74177; Q9967 ==

== ENCOUNTER 2023-05-04 13:55 | Outpatient (CLI) | payer BC | END 2023-05-04 13:56 | disposition home or self-care (01) | LOC: LABBT 13:55 | PROVIDERS: ATTEND Specialist | DX: Z01.810 Encounter for preprocedural cardiovascular examination (principal); H71.22 Cholesteatoma of mastoid, left ear | CPT/HCPCS: 93005; 93010 ==

== ENCOUNTER 2023-05-05 08:54 | Inpatient (IN) | payer BC, MEDICARE ==
[2023-05-05] MEDS ORDERED: Lidocaine 1% (PF) 30 ML VIAL ONE (11:06)
[2023-05-05] MEDS ORDERED: Ciprofloxacin 0.2% Otic (0.25ML CONTAINER) ONE (11:06)
[2023-05-05] MEDS ORDERED: SUGAMMADEX SODIUM 200 MG/2 ML VIAL ONE (11:27)
[2023-05-05] MEDS ORDERED: fentaNYL PF 100 MCG/2 ML SYRINGE ONE (11:27)
[2023-05-05] MEDS ORDERED: PHENYLEPHRINE-NS 100 MCG/ML 10 ML SYRINGE ONE (11:57)
[2023-05-05] MEDS ORDERED: Ondansetron PF 4 MG/2 ML Vial ONE (11:57)
[2023-05-05] MEDS ORDERED: Rocuronium Bromide 10 MG/ML (10ML VIAL) ONE (11:57)
[2023-05-05] MEDS ORDERED: PROPOFOL 200 MG/20 ML VIAL ONE (11:57)
[2023-05-05] MEDS ORDERED: Dexamethasone 20 MG/5 ML VIAL ONE (11:57)
[2023-05-05] MEDS ORDERED: Piperacillin/Tazobactam 3.375 GM VIAL ONE (12:20)
[2023-05-05] MEDS ORDERED: Bacitracin Zinc Ointment 30 gm TUBE ONE (13:10)
[2023-05-05] MEDS ORDERED: Acetaminophen 325 MG TAB PO PRN (14:17)
[2023-05-05] MEDS ORDERED: Ondansetron PF 4 MG/2 ML Vial IVP PRN (14:17)
[2023-05-05] MEDS ORDERED: fentaNYL 50 mcg/mL 1 mL Vial ONE ×5 (14:18→17:17)
[2023-05-05] MEDS ORDERED: Morphine 2 MG/ML VIAL SLOW IVP PRN (14:31)
[2023-05-05] MEDS ORDERED: Naloxone HCl 0.4 mg/ml Vial IV PRN (14:32)
[2023-05-05] MEDS ORDERED: Dextrose 50% Abboject 50 ML SYRINGE SLOW IVP PRN (14:33)
[2023-05-05] MEDS ORDERED: HumaLOG 300 UNITS/3 ML VIAL SC PRN (14:33)
[2023-05-05] MEDS ORDERED: Dextrose 5% in Water 1,000 ML IV PRN (14:33)
[2023-05-05] MEDS ORDERED: Glucagon 1 MG/ML KIT IM PRN (14:33)
[2023-05-05] MEDS ORDERED: Non-Formulary Medication 1 EACH PO PRN (18:08)
[2023-05-05] MEDS ORDERED: HYDROmorphone 2 MG/ML VIAL SLOW IVP PRN (18:15)
[2023-05-05] MEDS ORDERED: Ondansetron HCl/PF 4 MG/2 ML Vial IVP PRN (18:15)
[2023-05-05] MEDS ORDERED: Promethazine HCl 25 MG/ML VIAL IM/IV PRN (18:15)
[2023-05-05] MEDS: HYDROcodone/Acetaminophen 5/325 mg Tablet PO SCH (18:25)
[2023-05-05] MEDS: Piperacillin/Tazobactam 3.375 GM in Sodium Chloride 0.9% 100 ML IVPB SCH (18:25)
[2023-05-05] MEDS: Sodium Chloride 0.9% 1,000 ML IV SCH (18:32)
[2023-05-05] MEDS ORDERED: Diphenoxylate HCl/Atropine Tablet PO PRN (18:41)
[2023-05-05] MEDS ORDERED: Zolpidem Tartrate 5 MG TAB PO PRN (18:42)
[2023-05-05 19:23] VITALS: BMI 36.1
[2023-05-05] MEDS ORDERED: [UNRECOGNIZED DRUG - NUTRITION] IVPB SCH (19:45)
[2023-05-05] MEDS ORDERED: Cyclobenzaprine 10 MG TAB PO PRN (19:48)
[2023-05-05] MEDS: Atorvastatin Calcium 10 MG TAB PO SCH (20:04)
[2023-05-05] MEDS: Famotidine/PF 20 mg/2ml Vial SLOW IVP SCH (20:04)
[2023-05-05] MEDS: Loratadine 10 MG TAB PO SCH (20:04)
[2023-05-05] MEDS: Montelukast Sodium 10 mg Tablet PO SCH (20:04)
[2023-05-05] MEDS: Prazosin HCl 1 MG CAP PO SCH (20:04)
[2023-05-05] MEDS: Senokot S 8.6-50 MG TAB PO SCH (20:05)
[2023-05-05] MEDS: Docusate 100 MG CAP PO SCH (20:05)
[2023-05-05] MEDS: Metoclopramide HCl 10 MG TAB PO SCH (20:08)
[2023-05-05] MEDS ORDERED: Cyclobenzaprine 10 MG TAB PO SCH (21:00)
[2023-05-05] MEDS: Buprenorphine 8mg/Naloxone 2mg per 1 FILM SL SCH (23:58)
[2023-05-05] MEDS: Ondansetron ODT 4 MG TAB PO PRN (23:59)
[2023-05-06] MEDS: HYDROcodone/Acetaminophen 5/325 mg Tablet PO SCH ×4 (01:08→18:12)
[2023-05-06] MEDS: Buprenorphine 8mg/Naloxone 2mg per 1 FILM SL SCH ×3 (05:50→18:11)
[2023-05-06] MEDS: Levothyroxine Sodium 75 MCG TAB PO SCH (05:51)
[2023-05-06] MEDS: Ondansetron ODT 4 MG TAB PO PRN (05:52)
[2023-05-06] MEDS: Sodium Chloride 0.9% 1,000 ML IV SCH ×2 (05:54→20:16)
[2023-05-06 06:01] LABS: #Monocytes 0.6 thou/uL (0.11-0.59); #Neutrophils 4.4 thou/uL (1.40-6.50); %Basophils 0.2 % (0.0-1.0); %Eosinophils 0.6 % (0.0-10.0); %Lymphocytes 19.2 % (21.0-51.0); %Monocytes 9.1 % (0.0-10.0); %Neutrophils 70.4 % (42.0-75.0); Mean Corpuscular HGB CONC 31.6 g/dL (32.0-36.0); Mean Corpuscular Hemoglobin 25.5 pg (27.0-31.0); Mean Corpuscular Volume 80.6 fl (78.0-98.0); Mean Platelet Volume 8.9 fL (7.4-10.4); Platelet Count 212 10x3/uL (130-400); RBC Distribution Width 14.4 % (11.5-14.5); Red Blood Cell (RBC) Count 3.92 mill/uL (4.70-6.10); White Blood Cell (WBC) Count 6.2 10x3/uL (4.8-10.8)
[2023-05-06 06:33] LABS: ALT (SGPT) 47 U/L (8-55); AST (SGOT) 27 U/L (5-34); Albumin 3.3 g/dL (3.5-5.0); Alkaline Phosphatase 103 U/L (40-110); Anion Gap 11 mmol/L (10-20); BUN (Urea Nitrogen) 21 mg/dL (8.4-25.7); Bilirubin, Total 0.3 mg/dL (0.2-1.2); Calc. Creatinine Clearance 142 mL/min (70-130); Calcium 8.8 mg/dL (7.8-10.44); Carbon Dioxide 24 mmol/L (22-29); Chloride 105 mmol/L (98-107); Estimated GFR 101; Globulin 3.8 g/dL (2.4-3.5); Glucose 130 mg/dL (70-105); Potassium 4.1 mmol/L (3.5-5.1); Protein, Total 7.1 g/dL (6.0-8.3); Sodium 136 mmol/L (136-145)
[2023-05-06 06:40] LABS: Hemoglobin A1c 5.5 % (4.0-6.0)
[2023-05-06] MEDS: Cholecalciferol 1,000 UNITS (25 MCG) TAB PO SCH (08:54)
[2023-05-06] MEDS: Metoclopramide HCl 10 MG TAB PO SCH ×3 (08:54→20:17)
[2023-05-06] MEDS: Naloxegol 12.5 MG TAB PO SCH (08:55)
[2023-05-06] MEDS: Pantoprazole 40 MG GRANULES PACKET PO SCH (08:55)
[2023-05-06] MEDS: Venlafaxine HCl XR 150 MG CAP PO SCH (08:55)
[2023-05-06] MEDS: Piperacillin/Tazobactam 3.375 GM in Sodium Chloride 0.9% 100 ML IVPB SCH ×3 (08:55→15:44)
[2023-05-06] MEDS ORDERED: TESTOSTERONE CYPIONATE 100 MG/ML IM SCH (09:00)
[2023-05-06] MEDS: Famotidine/PF 20 mg/2ml Vial SLOW IVP SCH ×2 (09:02→20:18)
[2023-05-06] MEDS ORDERED: Cyclobenzaprine 10 MG TAB PO SCH (15:30)
[2023-05-06] MEDS: Senokot S 8.6-50 MG TAB PO SCH (20:17)
[2023-05-06] MEDS: Docusate 100 MG CAP PO SCH (20:17)
[2023-05-06] MEDS: Cyclobenzaprine 10 MG TAB PO SCH (20:18)
[2023-05-06] MEDS: Loratadine 10 MG TAB PO SCH (20:18)
[2023-05-06] MEDS: Montelukast Sodium 10 mg Tablet PO SCH (20:18)
[2023-05-06] MEDS: Prazosin HCl 1 MG CAP PO SCH (20:18)
[2023-05-06] MEDS: Atorvastatin Calcium 10 MG TAB PO SCH (20:18)
[2023-05-06] MEDS ORDERED: [UNRECOGNIZED DRUG - NUTRITION] IVPB SCH (21:00)
[2023-05-06] MEDS ORDERED: Multivitamins, Adult 10 ML in Sodium Chloride 0.9% 500 ML IV SCH (22:00)
[2023-05-07] MEDS: Buprenorphine 8mg/Naloxone 2mg per 1 FILM SL SCH ×4 (00:42→18:13)
[2023-05-07] MEDS: HYDROcodone/Acetaminophen 5/325 mg Tablet PO SCH ×4 (00:43→17:47)
[2023-05-07] MEDS: Piperacillin/Tazobactam 3.375 GM in Sodium Chloride 0.9% 100 ML IVPB SCH ×3 (01:43→15:31)
[2023-05-07 04:28] LABS: #Eosinphils 0.4 thou/uL (0.0-0.7); #Monocytes 0.5 thou/uL (0.11-0.59); #Neutrophils 3.5 thou/uL (1.40-6.50); %Basophils 0.3 % (0.0-1.0); %Eosinophils 6.4 % (0.0-10.0); %Lymphocytes 23.9 % (21.0-51.0); %Monocytes 8.1 % (0.0-10.0); Hemoglobin 9.8 g/dL (14.0-18.0); Mean Corpuscular HGB CONC 30.9 g/dL (32.0-36.0); Mean Corpuscular Hemoglobin 25.2 pg (27.0-31.0); Mean Corpuscular Volume 81.5 fl (78.0-98.0); Mean Platelet Volume 8.6 fL (7.4-10.4); Platelet Count 193 10x3/uL (130-400); RBC Distribution Width 14.6 % (11.5-14.5); Red Blood Cell (RBC) Count 3.89 mill/uL (4.70-6.10); White Blood Cell (WBC) Count 5.8 10x3/uL (4.8-10.8)
[2023-05-07 04:53] LABS: Anion Gap 13 mmol/L (10-20); BUN (Urea Nitrogen) 15 mg/dL (8.4-25.7); Calc. Creatinine Clearance 140 mL/min (70-130); Calcium 8.5 mg/dL (7.8-10.44); Carbon Dioxide 23 mmol/L (22-29); Chloride 106 mmol/L (98-107); Estimated GFR 101; Glucose 127 mg/dL (70-105); Magnesium 1.9 mg/dL (1.6-2.6); Sodium 138 mmol/L (136-145)
[2023-05-07] MEDS: Levothyroxine Sodium 75 MCG TAB PO SCH (05:44)
[2023-05-07] MEDS: Promethazine 25 MG TAB PO PRN (10:27)
[2023-05-07] MEDS: Cyclobenzaprine 10 MG TAB PO SCH ×3 (10:27→20:44)
[2023-05-07] MEDS: Metoclopramide HCl 10 MG TAB PO SCH ×3 (10:27→20:45)
[2023-05-07] MEDS: Venlafaxine HCl XR 150 MG CAP PO SCH (10:27)
[2023-05-07] MEDS: Famotidine/PF 20 mg/2ml Vial SLOW IVP SCH ×2 (10:28→20:54)
[2023-05-07] MEDS: Pantoprazole 40 MG GRANULES PACKET PO SCH (10:28)
[2023-05-07] MEDS: Naloxegol 12.5 MG TAB PO SCH (10:28)
[2023-05-07] MEDS: Cholecalciferol 1,000 UNITS (25 MCG) TAB PO SCH (10:29)
[2023-05-07] MEDS: Sodium Chloride 0.9% 1,000 ML IV SCH (10:29)
[2023-05-07] MEDS ORDERED: Ketorolac Tromethamine 30 MG/ML VIAL IVP SCH ×2 (12:00→21:30)
[2023-05-07] MEDS ORDERED: [UNRECOGNIZED DRUG - NUTRITION] IVPB SCH (20:30)
[2023-05-07] MEDS: Docusate 100 MG CAP PO SCH (20:44)
[2023-05-07] MEDS: Atorvastatin Calcium 10 MG TAB PO SCH (20:44)
[2023-05-07] MEDS: Prazosin HCl 1 MG CAP PO SCH (20:45)
[2023-05-07] MEDS: Loratadine 10 MG TAB PO SCH (20:45)
[2023-05-07] MEDS: Montelukast Sodium 10 mg Tablet PO SCH (20:45)
[2023-05-07] MEDS: Senokot S 8.6-50 MG TAB PO SCH (20:45)
[2023-05-07] MEDS: Ibuprofen 600 MG TAB PO PRN (20:54)
[2023-05-08] MEDS: Buprenorphine 8mg/Naloxone 2mg per 1 FILM SL SCH ×3 (00:44→12:41)
[2023-05-08] MEDS: Sodium Chloride 0.9% 1,000 ML IV SCH ×2 (00:44→11:57)
[2023-05-08] MEDS: HYDROcodone/Acetaminophen 5/325 mg Tablet PO SCH ×3 (02:50→11:57)
[2023-05-08 05:00] LABS: #Eosinphils 0.7 thou/uL (0.0-0.7); #Monocytes 0.5 thou/uL (0.11-0.59); #Neutrophils 2.8 thou/uL (1.40-6.50); %Basophils 0.4 % (0.0-1.0); %Eosinophils 13.4 % (0.0-10.0); %Lymphocytes 23.9 % (21.0-51.0); %Monocytes 9.7 % (0.0-10.0); %Neutrophils 52.2 % (42.0-75.0); Hemoglobin 10.1 g/dL (14.0-18.0); Mean Corpuscular HGB CONC 30.9 g/dL (32.0-36.0); Mean Corpuscular Hemoglobin 25.2 pg (27.0-31.0); Mean Corpuscular Volume 81.5 fl (78.0-98.0); Mean Platelet Volume 8.6 fL (7.4-10.4); Platelet Count 203 10x3/uL (130-400); RBC Distribution Width 14.6 % (11.5-14.5); Red Blood Cell (RBC) Count 4.01 mill/uL (4.70-6.10); White Blood Cell (WBC) Count 5.4 10x3/uL (4.8-10.8)
[2023-05-08 05:15] LABS: Anion Gap 11 mmol/L (10-20); BUN (Urea Nitrogen) 15 mg/dL (8.4-25.7); Calc. Creatinine Clearance 127 mL/min (70-130); Calcium 8.8 mg/dL (7.8-10.44); Carbon Dioxide 25 mmol/L (22-29); Chloride 107 mmol/L (98-107); Estimated GFR 93; Glucose 105 mg/dL (70-105); Potassium 4.1 mmol/L (3.5-5.1); Sodium 139 mmol/L (136-145)
[2023-05-08] MEDS: Levothyroxine Sodium 75 MCG TAB PO SCH (06:13)
[2023-05-08] MEDS: Naloxegol 12.5 MG TAB PO SCH (08:57)
[2023-05-08] MEDS: Ibuprofen 600 MG TAB PO PRN ×2 (08:57→15:42)
[2023-05-08] MEDS: Promethazine 25 MG TAB PO PRN (08:57)
[2023-05-08] MEDS: Venlafaxine HCl XR 150 MG CAP PO SCH (08:58)
[2023-05-08] MEDS: Cyclobenzaprine 10 MG TAB PO SCH ×2 (08:58→15:41)
[2023-05-08] MEDS: Famotidine/PF 20 mg/2ml Vial SLOW IVP SCH (08:58)
[2023-05-08] MEDS: Metoclopramide HCl 10 MG TAB PO SCH ×2 (08:58→15:41)
[2023-05-08] MEDS: Cholecalciferol 1,000 UNITS (25 MCG) TAB PO SCH (08:59)
[2023-05-08] MEDS ORDERED: Ertapenem 1 GM in Sodium Chloride 0.9% 100 ML IVPB SCH (09:00)
[2023-05-08 12:56] VITALS: BP 125/77; TEMP 97.8
[2023-05-08] MEDS: LIRAGLUTIDE 3 MG/0.5 ML SC SCH ×2 (16:36→16:37)
[2023-05-09] MEDS ORDERED: Multivitamins, Adult 10 ML in Sodium Chloride 0.9% 500 ML IV SCH (14:00)
== END 2023-05-08 16:32 | disposition home or self-care (01) | DRG 135 ==
LOC: SDC 08:54 → INTOOBSV 14:27 → 2NO 14:27 → OBSVTOIN 17:24
PROVIDERS: ADMIT Specialist; ATTEND Family Medicine
PROC: 09BC0ZZ Excision of Left Mastoid Sinus, Open Approach (ICD-10-PCS; principal; 2023-05-05)
PROC: 3E0436Z Introduction of Nutritional Substance into Central Vein, Percutaneous Approach (ICD-10-PCS; 2023-05-05)
DX: H70.12 Chronic mastoiditis, left ear (principal); Z16.24 Resistance to multiple antibiotics; H71.22 Cholesteatoma of mastoid, left ear; E11.9 Type 2 diabetes mellitus without complications; H81.02 Meniere's disease, left ear; E78.5 Hyperlipidemia, unspecified; G47.33 Obstructive sleep apnea (adult) (pediatric); J45.909 Unspecified asthma, uncomplicated; Z90.49 Acquired absence of other specified parts of digestive tract; Z79.899 Other long term (current) drug therapy
CPT/HCPCS: 36415; 36416; 80048; 80053; 83036; 83735; 85025; 93005; 93010; 96374; 96375; 96376; G0378; J0571; J1100; J1335; J1885; J2001; J2405; J2543; J2704; J3010; J3490; J7030; J7050; Q0162; Q0169; S0028

== ENCOUNTER 2023-05-31 07:35 | Outpatient (CLI) | payer BC ==
[2023-05-31] MEDS ORDERED: MD-Gastroview 120 ML BOT ONE (11:18)
== END 2023-05-31 07:36 | disposition home or self-care (01) ==
LOC: RAD 07:35
DX: K63.2 Fistula of intestine (principal)
CPT/HCPCS: 74270; Q9963

== ENCOUNTER → 2023-06-23 | Day surgery (SDC) | payer BC | LOC: SPEC 09:58 | PROVIDERS: ATTEND Surgery | DX: Z45.2 Encounter for adjustment and management of vascular access device (principal) | CPT/HCPCS: 36569 ==

== ENCOUNTER 2023-08-23 07:12 | Outpatient (CLI) | payer BC | END 2023-08-23 07:13 | disposition home or self-care (01) | LOC: CT 07:12 | PROVIDERS: ATTEND Surgery | DX: Z09 Encounter for follow-up examination after completed treatment for conditions other than malignant neoplasm (principal); R10.9 Unspecified abdominal pain; K59.00 Constipation, unspecified; Z87.19 Personal history of other diseases of the digestive system; Z98.890 Other specified postprocedural states | CPT/HCPCS: 74176 ==

== ENCOUNTER 2023-10-15 15:42 | Inpatient (IN) | payer BC ==
[2023-10-15 17:08] LABS: #Eosinphils 0.1 thou/uL (0.0-0.7); #Monocytes 0.4 thou/uL (0.11-0.59); #Neutrophils 3.3 thou/uL (1.40-6.50); %Basophils 0.6 % (0.0-1.0); %Eosinophils 1.5 % (0.0-10.0); %Lymphocytes 30.3 % (21.0-51.0); %Monocytes 6.5 % (0.0-10.0); %Neutrophils 60.9 % (42.0-75.0); Hematocrit 34.4 % (42.0-52.0); Hemoglobin 10.3 g/dL (14.0-18.0); Mean Corpuscular HGB CONC 29.9 g/dL (32.0-36.0); Mean Corpuscular Hemoglobin 23.5 pg (27.0-31.0); Mean Corpuscular Volume 78.5 fl (78.0-98.0); Mean Platelet Volume 8.9 fL (7.4-10.4); Platelet Count 211 10x3/uL (130-400); RBC Distribution Width 14.9 % (11.5-14.5); Red Blood Cell (RBC) Count 4.38 mill/uL (4.70-6.10); White Blood Cell (WBC) Count 5.4 10x3/uL (4.8-10.8)
[2023-10-15 17:12] VITALS: BMI 36.5
[2023-10-15 17:28] LABS: Lactic Acid 0.7 mmol/L (0.5-2.2)
[2023-10-15 17:31] LABS: Anion Gap 13 mmol/L (10-20); BUN (Urea Nitrogen) 6 mg/dL (8.4-25.7); Calc. Creatinine Clearance 141 mL/min (70-130); Calcium 8.6 mg/dL (7.8-10.44); Carbon Dioxide 26 mmol/L (22-29); Chloride 105 mmol/L (98-107); Estimated GFR 100; Glucose 89 mg/dL (70-105); Magnesium 2.1 mg/dL (1.6-2.6); Potassium 3.6 mmol/L (3.5-5.1); Sodium 140 mmol/L (136-145)
[2023-10-15] MEDS ORDERED: Ondansetron PF 4 MG/2 ML Vial IVP PRN (17:41)
[2023-10-15] MEDS ORDERED: Ondansetron ODT 4 MG TAB PO PRN ×2 (17:41→17:47)
[2023-10-15] MEDS ORDERED: Acetaminophen 325 MG TAB PO PRN (17:41)
[2023-10-15] MEDS ORDERED: Diphenoxylate HCl/Atropine Tablet PO PRN (17:47)
[2023-10-15] MEDS ORDERED: Promethazine 25 MG TAB PO PRN (17:47)
[2023-10-15] MEDS ORDERED: Morphine 4 MG/ML VIAL SLOW IVP PRN (17:50)
[2023-10-15] MEDS: Sodium Chloride 0.9% 1,000 ML IV SCH (17:54)
[2023-10-15] MEDS ORDERED: Ketorolac Tromethamine 30 MG/ML VIAL IVP SCH (18:15)
[2023-10-15] MEDS ORDERED: Cyclobenzaprine 10 MG TAB PO SCH (21:00)
[2023-10-15] MEDS ORDERED: Cefdinir 300 MG CAP PO SCH (21:00)
[2023-10-15] MEDS ORDERED: Venlafaxine HCl XR 150 MG CAP PO SCH (21:00)
[2023-10-15] MEDS: Atorvastatin Calcium 10 MG TAB PO SCH (21:01)
[2023-10-15] MEDS: Loratadine 10 MG TAB PO SCH (21:03)
[2023-10-16] MEDS: Buprenorphine HCl 2 MG SL TAB SL SCH ×4 (00:37→22:18)
[2023-10-16] MEDS: Anastrozole 1 MG TAB PO SCH ×2 (00:37→20:41)
[2023-10-16] MEDS: Ketorolac Tromethamine 30 MG/ML VIAL IVP SCH ×4 (00:39→17:36)
[2023-10-16] MEDS: Sodium Chloride 0.9% 1,000 ML IV SCH ×2 (00:55→09:37)
[2023-10-16] MEDS ORDERED: Morphine 2 MG/ML VIAL SLOW IVP SCH (05:30)
[2023-10-16] MEDS: Levothyroxine Sodium 75 MCG TAB PO SCH (07:34)
[2023-10-16] MEDS: Cholecalciferol 1,000 UNITS (25 MCG) TAB PO SCH (07:34)
[2023-10-16] MEDS: Aripiprazole 10 MG TAB PO SCH (08:34)
[2023-10-16] MEDS: Pantoprazole 40 MG VIAL IVP SCH (08:35)
[2023-10-16] MEDS: DESVENLAFAXINE 100 MG PO SCH (08:35)
[2023-10-16 09:35] LABS: ALT (SGPT) 19 U/L (8-55); AST (SGOT) 23 U/L (5-34); Albumin 3.8 g/dL (3.5-5.0); Alkaline Phosphatase 108 U/L (40-110); Anion Gap 11 mmol/L (10-20); BUN (Urea Nitrogen) 8 mg/dL (8.4-25.7); Bilirubin, Total 0.5 mg/dL (0.2-1.2); Calc. Creatinine Clearance 136 mL/min (70-130); Calcium 8.4 mg/dL (7.8-10.44); Carbon Dioxide 28 mmol/L (22-29); Chloride 105 mmol/L (98-107); Estimated GFR 98; Globulin 3.1 g/dL (2.4-3.5); Glucose 88 mg/dL (70-105); Potassium 3.7 mmol/L (3.5-5.1); Protein, Total 6.9 g/dL (6.0-8.3); Sodium 140 mmol/L (136-145)
[2023-10-16] MEDS: cefTRIAXone\\ROCEPHIN 1 GM in Sodium Chloride 0.9% 100 ML IVPB SCH (14:22)
[2023-10-16] MEDS: Loratadine 10 MG TAB PO SCH (20:41)
[2023-10-16] MEDS: Atorvastatin Calcium 10 MG TAB PO SCH (20:41)
[2023-10-17] MEDS: Ketorolac Tromethamine 30 MG/ML VIAL IVP SCH ×3 (00:08→12:49)
[2023-10-17] MEDS: Levothyroxine Sodium 75 MCG TAB PO SCH (05:19)
[2023-10-17] MEDS: Buprenorphine HCl 2 MG SL TAB SL SCH ×2 (05:19→13:41)
[2023-10-17 08:57] LABS: ALT (SGPT) 18 U/L (8-55); AST (SGOT) 22 U/L (5-34); Alkaline Phosphatase 108 U/L (40-110); Anion Gap 10 mmol/L (10-20); BUN (Urea Nitrogen) 7 mg/dL (8.4-25.7); Bilirubin, Total 0.6 mg/dL (0.2-1.2); Calc. Creatinine Clearance 116 mL/min (70-130); Carbon Dioxide 30 mmol/L (22-29); Chloride 102 mmol/L (98-107); Estimated GFR 80; Globulin 3.5 g/dL (2.4-3.5); Glucose 87 mg/dL (70-105); Protein, Total 7.5 g/dL (6.0-8.3); Sodium 138 mmol/L (136-145)
[2023-10-17] MEDS: Aripiprazole 10 MG TAB PO SCH (10:10)
[2023-10-17] MEDS: Pantoprazole 40 MG VIAL IVP SCH (10:11)
[2023-10-17] MEDS: Cholecalciferol 1,000 UNITS (25 MCG) TAB PO SCH (10:11)
[2023-10-17] MEDS: DESVENLAFAXINE 100 MG PO SCH (10:21)
[2023-10-17] MEDS: cefTRIAXone\\ROCEPHIN 1 GM in Sodium Chloride 0.9% 100 ML IVPB SCH (13:40)
[2023-10-17 14:22] VITALS: BP 127/89; TEMP 98.3
[2023-10-17] MEDS ORDERED: Senokot S 8.6-50 MG TAB PO SCH (21:00)
[2023-10-18] MEDS ORDERED: Polyethylene Glycol 3350 17 GM Packet PO SCH (09:00)
[2023-10-18] MEDS ORDERED: FLU VACC QS2023-24(6MOS UP)/PF 60 MCG/0.5 ML SYRINGE IM ONE (17:30)
== END 2023-10-17 15:35 | disposition home or self-care (01) | DRG 390 ==
LOC: SURG B 16:44
PROVIDERS: ADMIT Internal Medicine; ATTEND Internal Medicine
PROC: 0DH67UZ Insertion of Feeding Device into Stomach, Via Natural or Artificial Opening (ICD-10-PCS; principal; 2023-10-16)
DX: K56.50 Intestinal adhesions [bands], unspecified as to partial versus complete obstruction (principal); E03.9 Hypothyroidism, unspecified; I10 Essential (primary) hypertension; E78.5 Hyperlipidemia, unspecified; Z79.899 Other long term (current) drug therapy; F43.10 Post-traumatic stress disorder, unspecified; Z98.890 Other specified postprocedural states; Z87.891 Personal history of nicotine dependence; F41.9 Anxiety disorder, unspecified; I25.10 Atherosclerotic heart disease of native coronary artery without angina pectoris; Z90.49 Acquired absence of other specified parts of digestive tract; Z90.89 Acquired absence of other organs; Z83.3 Family history of diabetes mellitus; Z82.49 Family history of ischemic heart disease and other diseases of the circulatory system; H66.92 Otitis media, unspecified, left ear
CPT/HCPCS: 36415; 74022; 80048; 80053; 83605; 83735; 84100; 85025; C9113; J0571; J0696; J1885; J2272; J3490; J7050; Q0162; Q0169

== ENCOUNTER 2024-03-16 08:51 | Outpatient (CLI) | payer BC | END 2024-03-16 08:52 | disposition home or self-care (01) | LOC: BICCT 08:51 | PROVIDERS: ATTEND Physician Assistant Medical | DX: K59.03 Drug induced constipation (principal); R10.9 Unspecified abdominal pain; R14.0 Abdominal distension (gaseous); K63.89 Other specified diseases of intestine | CPT/HCPCS: 74177 ==

== ENCOUNTER 2024-07-12 10:13 | Observation (INO) | payer BC ==
[2024-07-12 10:47] LABS: #Basophils 0.04 10x3/uL (0.0-0.2); %Basophils 0.9 % (0.0-1.0); %Eosinophils 4.8 % (0.0-10.0); %Lymphocytes 48.5 % (21.0-51.0); %Neutrophils 38.6 % (42.0-75.0); Hematocrit 42.7 % (42.0-52.0); Hemoglobin 13.8 g/dL (14.0-18.0); Mean Corpuscular HGB CONC 32.3 g/dL (32.0-36.0); Mean Corpuscular Hemoglobin 25.9 pg (27.0-31.0); Mean Corpuscular Volume 80.1 fL (78.0-98.0); Mean Platelet Volume 8.8 fL (7.4-10.4); Platelet Count 218 10x3/uL (130-400); RBC Distribution Width 14.6 % (11.5-14.5); Red Blood Cell (RBC) Count 5.33 mill/uL (4.70-6.10)
[2024-07-12 11:34] LABS: ALT (SGPT) 35 U/L (8-55); AST (SGOT) 25 U/L (5-34); Albumin 4.2 g/dL (3.5-5.0); Alkaline Phosphatase 117 U/L (40-110); Anion Gap 12 mmol/L (10-20); BUN (Urea Nitrogen) 11 mg/dL (8.4-25.7); Bilirubin, Total 0.5 mg/dL (0.2-1.2); Calc. Creatinine Clearance 0 mL/min (70-130); Calcium 9.5 mg/dL (7.8-10.44); Carbon Dioxide 25 mmol/L (22-29); Chloride 104 mmol/L (98-107); Estimated GFR 64; Globulin 3.7 g/dL (2.4-3.5); Glucose 128 mg/dL (70-105); Lipase 55 U/L (8-78); Potassium 4.3 mmol/L (3.5-5.1); Protein, Total 7.9 g/dL (6.0-8.3); Sodium 137 mmol/L (136-145)
[2024-07-12 11:39] LABS: Troponin I Less than 0.010 ng/mL (< 0.028)
[2024-07-12] MEDS ORDERED: Ondansetron PF 4 MG/2 ML Vial ONE (13:01)
[2024-07-12] MEDS ORDERED: Pantoprazole 40 MG VIAL ONE (13:01)
[2024-07-12] MEDS ORDERED: Morphine 4 MG/ML VIAL ONE (13:01)
[2024-07-12] MEDS ORDERED: fentaNYL 50 mcg/mL 1 mL Vial ONE (14:22)
[2024-07-12] MEDS ORDERED: Ketorolac Tromethamine 30 MG (1 mL) VIAL ONE (14:47)
[2024-07-12 15:27] LABS: Bacteria/HPF None Seen HPF (None Seen); Bilirubin Negative (Negative); Blood, Urine Negative (Negative); CAUTI Indications for Culture Dysuria,urgency,freq; Clarity Clear (Clear); Glucose, Urine (Dipstick) Normal (Negative); Ketone, Urine Negative (Negative); Leukocyte Negative Leu/uL (Negative); Nitrite Negative (Negative); Protein, Urine (Dipstick) Negative (Neg-Trace); RBC/HPF 0-3 HPF (0-3); Squamous Epithelial None Seen HPF (0-3); Urobilinogen Normal mg/dL (Less than 2); WBC/HPF 0-3 HPF (0-3); pH, Urine 6.5 (5.0-9.0)
[2024-07-12 15:38] LABS: Specific Gravity, Urine 1.046 (1.002-1.036)
[2024-07-12 15:39] LABS: Urine Culture Reflex No No
[2024-07-12] MEDS ORDERED: Senokot S 8.6-50 MG TAB PO PRN (16:40)
[2024-07-12] MEDS ORDERED: Guaifenesin DM 100-10/5 ML UDCUP PO PRN (16:40)
[2024-07-12] MEDS ORDERED: Morphine 4 MG/ML VIAL SLOW IVP PRN (16:43)
[2024-07-12 17:53] VITALS: BMI 39.2
[2024-07-12] MEDS: Sodium Chloride 0.9% 1,000 ML IV SCH (17:59)
[2024-07-12] MEDS: Ketorolac Tromethamine 30 MG (1 mL) VIAL IVP PRN (18:20)
[2024-07-12] MEDS: Anastrozole 1 MG TAB PO SCH (20:11)
[2024-07-12] MEDS: Ondansetron PF 4 MG/2 ML Vial IVP PRN (20:11)
[2024-07-12] MEDS: Famotidine/PF 20 mg/2ml Vial SLOW IVP SCH (20:12)
[2024-07-12] MEDS: fentaNYL 50 mcg/mL 1 mL Vial SLOW IVP PRN (20:13)
[2024-07-12] MEDS: Venlafaxine HCl XR 150 MG CAP PO SCH (20:13)
[2024-07-13 04:30] LABS: #Basophils 0.03 10x3/uL (0.0-0.2); %Basophils 0.6 % (0.0-1.0); %Eosinophils 5.6 % (0.0-10.0); %Lymphocytes 37.2 % (21.0-51.0); %Monocytes 7.6 % (0.0-10.0); %Neutrophils 48.8 % (42.0-75.0); Hemoglobin 12.5 g/dL (14.0-18.0); Mean Corpuscular HGB CONC 31.3 g/dL (32.0-36.0); Mean Corpuscular Hemoglobin 25.4 pg (27.0-31.0); Mean Corpuscular Volume 81.1 fL (78.0-98.0); Mean Platelet Volume 8.9 fL (7.4-10.4); Platelet Count 218 10x3/uL (130-400); RBC Distribution Width 14.6 % (11.5-14.5); Red Blood Cell (RBC) Count 4.93 mill/uL (4.70-6.10)
[2024-07-13 04:49] LABS: Anion Gap 11 mmol/L (10-20); BUN (Urea Nitrogen) 13 mg/dL (8.4-25.7); Calc. Creatinine Clearance 104 mL/min (70-130); Calcium 9.1 mg/dL (7.8-10.44); Carbon Dioxide 28 mmol/L (22-29); Chloride 105 mmol/L (98-107); Estimated GFR 68; Glucose 77 mg/dL (70-105); Potassium 4.1 mmol/L (3.5-5.1); Sodium 140 mmol/L (136-145)
[2024-07-13] MEDS: Levothyroxine Sodium 75 MCG TAB PO SCH (04:59)
[2024-07-13] MEDS: Enoxaparin 40 MG (0.4 mL) SYRINGE SC SCH (08:14)
[2024-07-13] MEDS: Aripiprazole 10 MG TAB PO SCH (08:14)
[2024-07-13] MEDS ORDERED: Promethazine 25 MG TAB PO PRN (08:43)
[2024-07-13] MEDS ORDERED: MD-Gastroview 120 ML BOT ONE (08:56)
[2024-07-13] MEDS: oxyCODONE/Acetaminophen 5 mg/325 mg Tablet PO SCH (11:29)
[2024-07-13] MEDS: Cyclobenzaprine 10 MG TAB PO SCH (11:31)
[2024-07-13] MEDS ORDERED: Non-Formulary Item 1 EACH (Oxycodone Hcl/Acetaminophen [Percocet] 10 MG/325 MG Tablet) PO SCH (12:00)
[2024-07-13 15:00] VITALS: BP 126/74; TEMP 98
[2024-07-13] MEDS ORDERED: Prazosin HCl 1 MG CAP PO SCH (21:00)
== END 2024-07-13 15:19 | disposition home or self-care (01) ==
LOC: ERS 10:13 → T4-A 17:05
PROVIDERS: ADMIT Hospitalist; ATTEND Hospitalist
DX: K56.609 Unspecified intestinal obstruction, unspecified as to partial versus complete obstruction (principal); F43.10 Post-traumatic stress disorder, unspecified; F32.9 Major depressive disorder, single episode, unspecified; E78.5 Hyperlipidemia, unspecified; G47.33 Obstructive sleep apnea (adult) (pediatric); Z90.49 Acquired absence of other specified parts of digestive tract; Z98.890 Other specified postprocedural states; Z87.891 Personal history of nicotine dependence
CPT/HCPCS: 36415; 74177; 74250; 80048; 80053; 81001; 83605; 83690; 84484; 85025; 93005; 94760; 96372; 96374; 96375; 96376; G0378; J1650; J1885; J2272; J2405; J2470; J3010; J3490; J7030; Q9963

== ENCOUNTER 2024-07-27 10:10 | Outpatient (CLI) | payer BC | END 2024-07-27 10:11 | disposition home or self-care (01) | LOC: ULT 10:10 | PROVIDERS: ATTEND Family Medicine | DX: R10.84 Generalized abdominal pain (principal) | CPT/HCPCS: 76705 ==

== ENCOUNTER 2024-09-15 23:25 | Inpatient (IN) | payer BC, MEDICARE ==
[2024-09-16 00:38] LABS: #Basophils 0.03 10x3/uL (0.0-0.2); %Basophils 0.4 % (0.0-1.0); %Eosinophils 0.9 % (0.0-10.0); %Lymphocytes 7.5 % (21.0-51.0); %Monocytes 6.6 % (0.0-10.0); %Neutrophils 84.3 % (42.0-75.0); Hematocrit 39.8 % (42.0-52.0); Hemoglobin 12.6 g/dL (14.0-18.0); Mean Corpuscular HGB CONC 31.7 g/dL (32.0-36.0); Mean Corpuscular Hemoglobin 25.9 pg (27.0-31.0); Mean Corpuscular Volume 81.9 fL (78.0-98.0); Mean Platelet Volume 9.3 fL (7.4-10.4); Platelet Count 248 10x3/uL (130-400); RBC Distribution Width 15.6 % (11.5-14.5); Red Blood Cell (RBC) Count 4.86 mill/uL (4.70-6.10)
[2024-09-16 00:53] LABS: ALT (SGPT) 49 U/L (8-55); AST (SGOT) 57 U/L (5-34); Albumin 4.3 g/dL (3.5-5.0); Alkaline Phosphatase 107 U/L (40-110); Anion Gap 13 mmol/L (10-20); BUN (Urea Nitrogen) 9 mg/dL (8.4-25.7); Bilirubin, Total 0.8 mg/dL (0.2-1.2); Calc. Creatinine Clearance 0 mL/min (70-130); Calcium 9.4 mg/dL (7.8-10.44); Carbon Dioxide 27 mmol/L (22-29); Chloride 101 mmol/L (98-107); Estimated GFR 77; Globulin 3.7 g/dL (2.4-3.5); Glucose 166 mg/dL (70-105); Lipase 24 U/L (8-78); Potassium 3.6 mmol/L (3.5-5.1); Sodium 137 mmol/L (136-145)
[2024-09-16] MEDS ORDERED: Ondansetron PF 4 MG/2 ML Vial ONE (00:59)
[2024-09-16] MEDS ORDERED: Ketorolac Tromethamine 30 MG (1 mL) VIAL ONE (02:37)
[2024-09-16] MEDS ORDERED: Morphine 4 MG/ML VIAL ONE (02:38)
[2024-09-16] MEDS ORDERED: Acetaminophen 325 MG TAB PO PRN (04:13)
[2024-09-16] MEDS ORDERED: traMADol HCl 50 MG TAB PO PRN (04:13)
[2024-09-16 05:53] LABS: Bacteria/HPF None Seen HPF (None Seen); Bilirubin Negative (Negative); Blood, Urine Negative (Negative); CAUTI Indications for Culture Dysuria,urgency,freq; Clarity Clear (Clear); Glucose, Urine (Dipstick) Normal (Negative); Ketone, Urine Negative (Negative); Leukocyte Negative Leu/uL (Negative); Nitrite Negative (Negative); Protein, Urine (Dipstick) 20 mg/dL (Neg-Trace); RBC/HPF 0-3 HPF (0-3); Specific Gravity, Urine 1.032 (1.002-1.036); Squamous Epithelial None Seen HPF (0-3); Urobilinogen Normal mg/dL (Less than 2); WBC/HPF None Seen HPF (0-3); pH, Urine 7.5 (5.0-9.0)
[2024-09-16 06:06] LABS: Urine Culture Reflex No No
[2024-09-16 06:30] VITALS: BMI 42.3
[2024-09-16] MEDS ORDERED: Iopamidol-370 76% 500 ML MDV (1 ML CHARGE) ONE (08:23)
[2024-09-16] MEDS: Enoxaparin 40 MG (0.4 mL) SYRINGE SC SCH (08:53)
[2024-09-16] MEDS: Famotidine/PF 20 mg/2ml Vial SLOW IVP SCH (08:53)
[2024-09-16] MEDS: Lactated Ringer's 1,000 ML IV SCH (09:51)
[2024-09-16] MEDS: Morphine 2 MG/ML VIAL SLOW IVP PRN (17:08)
[2024-09-16] MEDS: Venlafaxine HCl XR 150 MG CAP PO SCH (21:00)
[2024-09-16] MEDS: Atorvastatin Calcium 10 MG TAB PO SCH (22:01)
[2024-09-16] MEDS: DESVENLAFAXINE SUCCINATE ER 100 MG TABLET PO SCH (22:01)
[2024-09-16] MEDS: Ketorolac Tromethamine 30 MG (1 mL) VIAL IVP PRN (22:02)
[2024-09-17] MEDS: Ondansetron PF 4 MG/2 ML Vial IVP PRN (04:15)
[2024-09-17] MEDS: Levothyroxine Sodium 75 MCG TAB PO SCH (05:07)
[2024-09-17 05:43] LABS: #Basophils 0.03 10x3/uL (0.0-0.2); %Basophils 0.7 % (0.0-1.0); %Eosinophils 6.4 % (0.0-10.0); %Monocytes 11.1 % (0.0-10.0); %Neutrophils 50.6 % (42.0-75.0); Hematocrit 36.7 % (42.0-52.0); Hemoglobin 11.3 g/dL (14.0-18.0); Mean Corpuscular HGB CONC 30.8 g/dL (32.0-36.0); Mean Corpuscular Hemoglobin 25.2 pg (27.0-31.0); Mean Corpuscular Volume 81.7 fL (78.0-98.0); Mean Platelet Volume 9.5 fL (7.4-10.4); Platelet Count 204 10x3/uL (130-400); RBC Distribution Width 15.8 % (11.5-14.5); Red Blood Cell (RBC) Count 4.49 mill/uL (4.70-6.10)
[2024-09-17 06:03] LABS: ALT (SGPT) 33 U/L (8-55); AST (SGOT) 30 U/L (5-34); Albumin 3.4 g/dL (3.5-5.0); Alkaline Phosphatase 79 U/L (40-110); Anion Gap 12 mmol/L (10-20); BUN (Urea Nitrogen) 10 mg/dL (8.4-25.7); Bilirubin, Total 0.9 mg/dL (0.2-1.2); Calc. Creatinine Clearance 128 mL/min (70-130); Calcium 8.7 mg/dL (7.8-10.44); Carbon Dioxide 29 mmol/L (22-29); Chloride 103 mmol/L (98-107); Estimated GFR 79; Globulin 3.2 g/dL (2.4-3.5); Glucose 101 mg/dL (70-105); Potassium 3.7 mmol/L (3.5-5.1); Protein, Total 6.6 g/dL (6.0-8.3); Sodium 140 mmol/L (136-145)
[2024-09-17] MEDS ORDERED: MD-Gastroview 120 ML BOT ONE (08:58)
[2024-09-17] MEDS: Buprenorphine 2mg/Naloxone 0.5mg per 1 FILM SL SCH (09:09)
[2024-09-17] MEDS: Montelukast Sodium 10 mg Tablet PO SCH (11:37)
[2024-09-17 16:55] VITALS: TEMP 98.3
[2024-09-17 16:56] VITALS: BP 157/84
== END 2024-09-17 15:45 | disposition home or self-care (01) | DRG 389 ==
LOC: ERS 23:25 → OBSVTOIN 09-16 06:11 → SURG B 09-16 06:11
PROVIDERS: ADMIT Internal Medicine; ATTEND Student in an Organized Health Care Education/Training Program
DX: K56.600 Partial intestinal obstruction, unspecified as to cause (principal); F11.93 Opioid use, unspecified with withdrawal; Z68.41 Body mass index [BMI] 40.0-44.9, adult; F43.10 Post-traumatic stress disorder, unspecified; E03.9 Hypothyroidism, unspecified; E78.5 Hyperlipidemia, unspecified; F32.A Depression, unspecified; E66.9 Obesity, unspecified; K21.9 Gastro-esophageal reflux disease without esophagitis; Z98.890 Other specified postprocedural states; Z87.891 Personal history of nicotine dependence; Z79.899 Other long term (current) drug therapy
CPT/HCPCS: 36415; 43752; 71045; 74177; 74250; 80053; 81001; 83690; 85025; 93005; 96374; 96375; J0572; J1650; J1885; J2272; J2405; J3490; J7120; Q9963; Q9967

== ENCOUNTER 2024-11-23 23:40 | Emergency (ER) | payer BC ==
[2024-11-24] MEDS ORDERED: Dexamethasone 10 MG/ML VIAL ONE (00:15)
[2024-11-24] MEDS ORDERED: Ketorolac Tromethamine 30 MG (1 mL) VIAL ONE (00:15)
== END 2024-11-24 00:38 | disposition home or self-care (01) ==
LOC: ERS 23:40
DX: J06.9 Acute upper respiratory infection, unspecified (principal)
CPT/HCPCS: 96372; 99282; J1100; J1885

== ENCOUNTER 2025-06-19 08:39 | Outpatient (CLI) | payer BC, MEDICARE | END 2025-06-19 08:40 | disposition home or self-care (01) | LOC: ULT 08:39 | DX: K58.0 Irritable bowel syndrome with diarrhea (principal); K76.0 Fatty (change of) liver, not elsewhere classified | CPT/HCPCS: 76705 ==